=== PATIENT | male | born 1965 | race American Indian/Alaskan Native ===

== ENCOUNTER 2017-07-01 16:54 | Inpatient (IN) | payer BC, MEDICARE ==
[2017-07-01 19:37] LABS: BASO % 0.4 % (0.0-2.0); EOS % 0.5 % (0.0-4.0); HEMOGLOBIN 13.3 g/dL (12.0-18.0); LYMPH # 0.9 K/uL (1.0-4.3); LYMPH % 9.5 % (20.0-40.0); MEAN CELL VOLUME 83.7 fL (80.0-94.0); MEAN CORPUSCULAR HEMOGLOBIN 28.1 pg (27.0-31.0); MEAN CORPUSCULAR HGB CONC 33.6 g/dL (33.0-37.0); MONO # 1.4 K/uL (0.0-0.8); MONO % 13.8 % (0.0-10.0); NEUT # 7.4 K/uL (1.8-7.0); NEUT % 75.8 % (50.0-75.0); NRBC % 0.1 % (0.0-2.0); PLATELET COUNT 190 K/uL (130-400); RBC 4.74 Mil/uL (4.40-5.90); RED CELL DISTRIBUTION WIDTH 15.3 % (11.5-14.5); WHITE BLOOD COUNT 9.8 K/uL (4.8-10.8)
[2017-07-01] MEDS ORDERED: Sodium Chloride 0.9% 1,000 ML IV ONE (20:01)
--- NOTE | 2017-07-01 20:27 | C.PDOC ---
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 Patient reports a loss of appetite and has not had food all day. He also reports nausea but denies any associated vomiting or diarrhea. Patient also has chronic constipation with last bowel movement was yesterday which was fairly normal. Patient states he has been taking Metamucil. Of note, patient has kidney failure and is status post 2 kidney transplants; patient takes Cellcept and Prograf and is on steroids for immunosuppression. Chief Complaint (Nursing): Abdominal Pain History Per: Patient History/Exam Limitations: no limitations Onset/Duration Of Symptoms: Days Current Symptoms Are (Timing): Still Present Location Of Pain/Discomfort: Diffuse Quality Of Discomfort: "Pain" Associated Symptoms: Nausea. denies: Vomiting, Diarrhea Past Medical History Reviewed: Historical Data, Nursing Documentation, Vital Signs Vital Signs: Last Vital Signs Temp 99.0 F 07/02/17 05:59 Pulse 82 07/02/17 05:59 Resp 20 07/02/17 05:59 BP 134/76 07/02/17 05:59 Pulse Ox 96 07/02/17 05:59 - Medical History PMH: Diabetes, HTN, End Stage Renal Disease - [facility] Procedures PERFORMANCE OF URINARY FILTRATION, MULTIPLE (11/10/15) RESECTION OF LEFT METATARSAL, OPEN APPROACH (11/10/15) RESECTION OF LEFT TOE PHALANX, OPEN APPROACH (11/10/15) Family History: States: Unknown Family Hx - Social History Hx Tobacco Use: No Hx Alcohol Use: No Hx Substance Use: No - Immunization History Hx Tetanus Toxoid Vaccination: No Hx Influenza Vaccination: Yes Hx Pneumococcal Vaccination: Yes Review Of Systems Except As Marked, All Systems Reviewed And Found Negative. Constitutional: Negative for: Fever, Chills Respiratory: Positive for: Cough (non-productive) Gastrointestinal: Positive for: Nausea, Abdominal Pain, Constipation. Negative for: Vomiting, Diarrhea Physical Exam - Physical Exam Appears: Non-toxic, No Acute Distress Skin: Normal Color, Warm, Dry Head: Atraumatic, Normacephalic Eye(s): bilateral: Normal Inspection, PERRL, EOMI Neck: Normal ROM, Supple Chest: Symmetrical Cardiovascular: Rhythm Regular Respiratory: Normal Breath Sounds Gastrointestinal/Abdominal: Soft, Tenderness (right lower quadrant) Neurological/Psych: Oriented x3, Normal Speech ED Course And Treatment - Laboratory Results Result Diagrams: 07/02/17 05:59 07/02/17 05:59 O2 Sat by Pulse Oximetry: 95 (RA) Medical Decision Making Medical Decision Making: Plan: -- Labs -- CXR -- XR obstructive Series -- CT Abdomen w/o contrast -- Morphine 4mg IVP -- Zofran 4mg IVP -- IV Fluids Time: 2049 BUN Creatinine 38/2.1 Lipase 22 Time: 2245 Upon re-evaluation, patient feels comfortable and is going for CT currently. Patient confirms that pain is under control. Time: 2345 CT FINDINGS: Lower thorax: No acute findings. ABDOMEN: Liver: Unremarkable. Gallbladder and bile ducts: Unremarkable. No calcified stones. No ductal dilation. Pancreas: Unremarkable. No ductal dilation. Spleen: Unremarkable. No splenomegaly. Adrenals: Unremarkable. No mass. Kidneys and ureters: Atrophic bilateral [place] kidneys. Indeterminate [place] left kidney upper pole 4.2 cm structure posteriorly and 2 cm structure anteriorly on image 59 of series 3. Right lower quadrant transplant kidney demonstrates multiple nonobstructing calcifications some of which may be vascular in nature. Left lower quadrant transplant kidney is without calcification. No transplant kidney hydroureteronephrosis or perinephric fluid collection. Stomach and bowel: Unremarkable. No obstruction. No mucosal thickening. Appendix: Acute ruptured appendicitis with a 4.2 x 4 cm abscess at the tip of the appendix. The appendix is dilated up to 1.8 cm with periappendiceal stranding and fluid. PELVIS: Bladder: Unremarkable. No stones. Reproductive: Unremarkable as visualized. ABDOMEN and PELVIS: Intraperitoneal space: Unremarkable. No free air. No significant fluid collection. Bones/joints: No acute fracture. No dislocation. Soft tissues: Unremarkable. Vasculature: Unremarkable. No abdominal aortic aneurysm. Lymph nodes: Unremarkable. No enlarged lymph nodes. IMPRESSION: 1. Acute ruptured appendicitis with a 4.2 x 4 cm abscess at the tip of the appendix. 2. Indeterminate [place] left kidney upper pole 4.2 cm structure posteriorly and 2 cm structure anteriorly on image 59 of series 3. Renal protocol cross-sectional imaging is recommended to evaluate for renal neoplasm. 0000 Discussed case with surgical manager. Page placed to patient's primary doctor. Orders put in for ruptured appendicitis with [id number] abscess at tip of appendix. Patient is comfortable. [id number] Discussed case with covering physician Dr. Zaragoza who is aware of patient's condition and CT findings. case discussed with Dr. Dubose. Disposition Counseled Patient/Family Regarding: Diagnosis - Disposition Disposition: HOSPITALIZED Disposition Time: 06:59 Condition: FAIR - Clinical Impression Clinical Impression: Abdominal pain, Perforated appendicitis - Scribe Statement The provider has reviewed the documentation as recorded by the Mode Rahman Provider Attestation: All medical record entries made by the Mode were at my direction and personally dictated by me. I have reviewed the chart and agree that the record accurately reflects my personal performance of the history, physical exam, medical decision making, and the department course for this patient. I have also personally directed, reviewed, and agree with the discharge instructions and disposition.
[2017-07-01] MEDS ORDERED: Sodium Chloride 0.9% 1,000 ML ONE (20:44)
[2017-07-01] MEDS ORDERED: Iohexol 240 (50 ml) ONE (21:07)
[2017-07-01] MEDS ORDERED: Morphine 4 MG/ML VIAL ONE (21:07)
[2017-07-01 21:40] LABS: LYMPHOCYTE 9 % (20-40); MONOCYTE 12 % (0-10); NEUTROPHIL 79 % (50-75); PLATELET ESTIMATE NORMAL (NORMAL); TOTAL CELLS COUNTED 100
[2017-07-01] MEDS ORDERED: Ciprofloxacin 400mg/200ml D5W 400 MG/200 ML BAG IVPB STA (23:58)
[2017-07-01] MEDS ORDERED: metroNIDAZOLE IV 500 mg/100 ml 500 MG/100 ML BAG IVPB STA (23:58)
[2017-07-02] MEDS ORDERED: Ciprofloxacin 400mg/200ml D5W 400 MG/200 ML BAG IVPB ONE (00:06)
[2017-07-02] MEDS ORDERED: metroNIDAZOLE IV 500 mg/100 ml 500 MG/100 ML BAG ONE (00:06)
--- NOTE | 2017-07-02 00:13 | CP.PCM.CON ---
History of Present Illness - History of Present Illness History of Present Illness: General Surgery Consult Note for Dr. Quevedo Reason for consult: abdominal pain, ruptured appendix 51 with PMH of HTN, DM, HLD, ESRD s/p kidney transplant x 2 presentss to [facility] for abdominal pain. Patient states that he has had the pain for about 2 days. Patient was at home on Saturday and states sudden onset of sharp, excruciating pain occurred. After a few hours, the pain subsided. Patient had some associated nausea and anorexia at that time. The pain subsequently resolved and the patient developed an appeitie. Yesterday, the pain returned but more intense and did not resolve. Patient then was prompted to come to the ED. He rates pain as moderate to severe. He describes pain as constant and throbbing located in RLQ quadrant with radiation to R flank. Palpation and certain movements exacerbates his pain while nothing specifically alleviates it. Patient currently stating he is hungry and requesting food. 12 point ROS negative unless otherwise stated above. PMD: Dr. Ashvin Clifton Nephro: Dr. Lorenzo PMH: HTN, DM, HLD, ESRD s/p kidney transplant x 2 Meds: As per EMR PSH: s/p kidney transplant x 2, LLE lateral digits amputation FH: non-contributory Social: Denies tobacco/EtOH/illicit drug use Review of Systems - Review of Systems All systems: reviewed and no additional remarkable complaints except (as per HPI ) Past Patient History - Past Medical History & Family History Past Medical History?: Yes - Past Social History Smoking Status: Former Smoker - CARDIAC Hx Hypertension: Yes - RENAL Hx Dialysis: Yes Date of Last Dialysis Treatment: 11/09/15 Other/Comment: DIALYSIS MWF - ENDOCRINE/METABOLIC Hx Diabetes Mellitus Type 1: Yes - INTEGUMENTARY Other/Comment: DIABETIC FOOT ULCER, LEFT - MUSCULOSKELETAL/RHEUMATOLOGICAL Hx Falls: No - PSYCHIATRIC Hx Substance Use: No - SURGICAL HISTORY Hx Amputation: Yes (LEFT FOOT, DIGITS 4,5) Hx Kidney Transplant: Yes (Right 13 yrs. ago, 01/19/17 Left) - ANESTHESIA Hx Anesthesia: Yes Hx Anesthesia Reactions: No Meds Allergies/Adverse Reactions: Allergies Allergy/AdvReac Type Severity Reaction Status Date / Time No Known Allergies Allergy Verified 11/11/15 00:29 - Medications Medications: Current Medications Metronidazole (Flagyl) 500 mg in 100 mls @ 100 mls/hr IVPB STAT STA Stop: 07/02/17 00:57 Ciprofloxacin (Cipro 400mg/200ml Dsw) 400 mg in 200 mls @ 133 mls/hr IVPB STAT STA Stop: 07/02/17 01:28 Physical Exam - Constitutional Appears: No Acute Distress - Head Exam Head Exam: ATRAUMATIC, NORMOCEPHALIC - Eye Exam Eye Exam: Conjunctival injection, EOMI Pupil Exam: PERRL - ENT Exam ENT Exam: Mucous Membranes Dry - Respiratory Exam Respiratory Exam: NORMAL BREATHING PATTERN - Cardiovascular Exam Cardiovascular Exam: REGULAR RHYTHM - GI/Abdominal Exam GI & Abdominal Exam: Guarding (deep palpation RLQ), Soft, Tenderness (RLQ). absent: Distended, Firm, Hernia, Mass, Rebound, Rigid - Extremities Exam Extremities exam: Positive for: normal capillary refill, pedal pulses present - Back Exam Back exam: absent: CVA tenderness (L), CVA tenderness (R) - Neurological Exam Neurological exam: Alert, CN II-XII Intact, Oriented x3 - Psychiatric Exam Psychiatric exam: Normal Affect, Normal Mood - Skin Skin Exam: Dry, Intact, Normal Color, Warm Results - Vital Signs Recent Vital Signs: Last Vital Signs Temp 100 F H 07/01/17 22:52 Pulse 89 07/01/17 22:52 Resp 18 07/01/17 22:52 BP 155/81 H 07/01/17 22:52 Pulse Ox 95 07/01/17 23:58 - Labs Result Diagrams: 07/02/17 05:59 07/02/17 05:59 Labs: Laboratory Results - last 24 hr 07/01/17 07/01/17 07/01/17 19:34 19:34 20:34 WBC 9.8 D RBC 4.74 Hgb 13.3 Hct 39.7 MCV 83.7 D MCH 28.1 MCHC 33.6 RDW 15.3 H Plt Count 190 MPV 10.0 Neut % (Auto) 75.8 H Lymph % (Auto) 9.5 L [place] % (Auto) 13.8 H Eos % (Auto) 0.5 Baso % (Auto) 0.4 Neut # 7.4 H Lymph # 0.9 L [place] # 1.4 H Eos # 0.0 Baso # 0.0 Neutrophils % (Manual) 79 H Lymphocytes % (Manual) 9 L Monocytes % (Manual) 12 H Platelet Estimate Normal Sodium 133 Potassium 4.3 Chloride 99 Carbon Dioxide 25 Anion Gap 14 BUN 38 H Creatinine 2.1 H Est GFR ( Amer) 41 Est GFR (Non-Af Amer) 34 Random Glucose 129 H Calcium 9.0 Total Bilirubin 0.9 AST 23 ALT 24 Alkaline Phosphatase 83 Troponin I 0.0200 Total Protein 7.9 Albumin 4.0 Globulin 3.9 Albumin/Globulin Ratio 1.0 Lipase 22 L Assessment & Plan - Assessment and Plan (Free Text) Plan: 51 M presents for abdominal pain with CT findings of ruptured appendicitis and 4.2 x 4cm abscess at tip of appendix -NPO -IV hydration -IV antibiotics -IR consult for possible drainage -Possible OR if clinical presentation worsens -Discussed with Dr. Sae Osorio PGY1
--- NOTE | 2017-07-02 02:49 | CP.PCM.HP ---
History of Present Illness - History of Present Illness History of Present Illness: Medicine Note for Dr. Winter Service CC: Abdominal pain HPI: 51M with PMHx of HTN, DM, HLD, ESRD s/p renal transplant x 2, chronic right arm lymphedema presents to the ED with abdominal pain x 3 days. Patient reports he started to have a dull, intermittent RLQ pain that did not radiate, that started 2 days ago. Patient admits to feeling feverish, chills, loss of appetite, nausea, abdominal pain, normal bowel movements. He tried taking Tylenol with codeine (which was prescribed to him by PMD, for previous illness) , with no relief. Patient came to the ED due to the pain becoming constant and now with radiation to his right flank. Denied fever, chills, headache, chest pain, SOB, n/v/d/c, or urinary symptoms. PMHx: HTN, DM, HLD, ESRD s/p renal transplant x 2, chronic right arm lymphedema PSHx: renal transplant x 2, LLE lateral digits amputation Meds: As per AUG, reviewed and confirmed All: NKDA SHx: 1 PPD for 10 years between 18-28 years of age, denied ETOH abuse, or illicit drug use FHx: HTN, DM in both parents - they are PMD: Dr. Ashvin Clifton Nephro: Dr. Lorenzo Present on Admission - Present on Admission Any Indicators Present on Admission: No Past Patient History - Past Medical History & Family History Past Medical History?: Yes - Past Social History Smoking Status: Former Smoker - CARDIAC Hx Hypertension: Yes - RENAL Hx Dialysis: Yes Date of Last Dialysis Treatment: 11/09/15 Other/Comment: DIALYSIS MWF - ENDOCRINE/METABOLIC Hx Diabetes Mellitus Type 1: Yes - INTEGUMENTARY Other/Comment: DIABETIC FOOT ULCER, LEFT - MUSCULOSKELETAL/RHEUMATOLOGICAL Hx Falls: No - PSYCHIATRIC Hx Substance Use: No - SURGICAL HISTORY Hx Amputation: Yes (LEFT FOOT, DIGITS 4,5) Hx Kidney Transplant: Yes (Right 13 yrs. ago, 01/19/17 Left) - ANESTHESIA Hx Anesthesia: Yes Hx Anesthesia Reactions: No Meds Allergies/Adverse Reactions: Allergies Allergy/AdvReac Type Severity Reaction Status Date / Time No Known Allergies Allergy Verified 11/11/15 00:29 Physical Exam - Constitutional Appears: No Acute Distress - Head Exam Head Exam: NORMAL INSPECTION, NORMOCEPHALIC - Eye Exam Eye Exam: EOMI, Normal appearance, PERRL Pupil Exam: NORMAL ACCOMODATION - ENT Exam ENT Exam: Mucous Membranes Moist - Respiratory Exam Respiratory Exam: Clear to Auscultation Bilateral, NORMAL BREATHING PATTERN. absent: Decreased Breath Sounds, Wheezes - Cardiovascular Exam Cardiovascular Exam: REGULAR RHYTHM, RRR, +S1, +S2 - GI/Abdominal Exam GI & Abdominal Exam: Normal Bowel Sounds, Soft, Tenderness (RLQ). absent: Distended - Extremities Exam Extremities exam: Positive for: normal inspection, pedal pulses present. Negative for: pedal edema, tenderness - Neurological Exam Neurological exam: Alert, CN II-XII Intact, Oriented x3 - Psychiatric Exam Psychiatric exam: Normal Affect, Normal Mood - Skin Skin Exam: Dry, Intact, Normal Color, Warm Results - Vital Signs Recent Vital Signs: Last Vital Signs Temp 100 F H 07/01/17 22:52 Pulse 89 07/01/17 22:52 Resp 18 07/01/17 22:52 BP 155/81 H 07/01/17 22:52 Pulse Ox 95 07/02/17 00:36 - Labs Result Diagrams: 07/02/17 05:59 07/02/17 05:59 Labs: Laboratory Results - last 24 hr 07/01/17 07/01/17 07/01/17 19:34 19:34 20:34 WBC 9.8 D RBC 4.74 Hgb 13.3 Hct 39.7 MCV 83.7 D MCH 28.1 MCHC 33.6 RDW 15.3 H Plt Count 190 MPV 10.0 Neut % (Auto) 75.8 H Lymph % (Auto) 9.5 L [place] % (Auto) 13.8 H Eos % (Auto) 0.5 Baso % (Auto) 0.4 Neut # 7.4 H Lymph # 0.9 L [place] # 1.4 H Eos # 0.0 Baso # 0.0 Neutrophils % (Manual) 79 H Lymphocytes % (Manual) 9 L Monocytes % (Manual) 12 H Platelet Estimate Normal Sodium 133 Potassium 4.3 Chloride 99 Carbon Dioxide 25 Anion Gap 14 BUN 38 H Creatinine 2.1 H Est GFR ( Amer) 41 Est GFR (Non-Af Amer) 34 Random Glucose 129 H Calcium 9.0 Total Bilirubin 0.9 AST 23 ALT 24 Alkaline Phosphatase 83 Troponin I 0.0200 Total Protein 7.9 Albumin 4.0 Globulin 3.9 Albumin/Globulin Ratio 1.0 Lipase 22 L Assessment & Plan - Assessment and Plan (Free Text) Assessment: 51M with PMHx of HTN, DM, HLD, ESRD s/p renal transplant x 2, chronic right arm lymphedema presents to the ED with abdominal pain x 3 days, found to have a ruptured appendix with possible Plan: Ruptured Appendicitis with Abscess General Surgery consulted - Dr. Quevedo - help appreciated IR was consulted for possible drainage- as per IR - the CT scan was reviewed. There is phlegmatous ( inflammatory) changes in the RLQ. There is no drainable fluid. Once a fluid collection develops, an percutaneous drainage catheter will be placed. Recommend repeating CT in two days. Imaging: CT Scan Abdomen and Pelvis: 1. Findings are consistent with acute ruptured appendicitis with a 4.2 cm collection/phlegmon at the tip. 2. 2.0 cm indeterminate lesion in the upper pole of the left kidney anteriorly could represent a complicated or hemorrhagic cyst. Neoplasm cannot be excluded. Please correlate with renal ultrasound. Meds: NS @100cc/hr Zosyn Q6H Morphine, Zofran PRN Renal Cyst CT Scan Abdomen and Pelvis: 2.0 cm indeterminate lesion in the upper pole of the left kidney anteriorly could represent a complicated or hemorrhagic cyst. Neoplasm cannot be excluded. Please correlate with renal ultrasound. F/U Renal US Hx of Renal Transplant x 2 Restarted immunosuppressants Hx HTN Resumed home medications Hx DM Accuchecks ISS - medium, restarted Gabapentin f/u HGA1C Hx HLD F/U lipid panel Prophylactic Measures GI PPX: Protonix 40mg IVP daily DVT PPX: SCDs, VTE C/I due to possible OR procedure DW Dr. Dubose, Davida Norris DO, PGY-1
[2017-07-02] MEDS ORDERED: Morphine 4 MG/ML VIAL ONE (04:49)
[2017-07-02] MEDS: Sodium Chloride 0.9% 1,000 ML IV SCH ×3 (05:32→20:55)
[2017-07-02] MEDS: Piperacill/Tazo 2.25gm in Dex 2.25 GM/50 ML BAG IVPB SCH ×4 (05:33→20:44)
[2017-07-02] MEDS ORDERED: Sodium Chloride 0.9% 1,000 ML ONE (05:44)
[2017-07-02 06:01] LABS: BASO # 0.1 K/uL (0.0-0.2); BASO % 0.6 % (0.0-2.0); EOS % 0.4 % (0.0-4.0); HEMOGLOBIN 11.8 g/dL (12.0-18.0); LYMPH # 0.6 K/uL (1.0-4.3); LYMPH % 6.3 % (20.0-40.0); MEAN CELL VOLUME 83.5 fL (80.0-94.0); MEAN CORPUSCULAR HGB CONC 33.5 g/dL (33.0-37.0); MONO # 1.4 K/uL (0.0-0.8); MONO % 13.9 % (0.0-10.0); NEUT % 78.8 % (50.0-75.0); PLATELET COUNT 146 K/uL (130-400); RBC 4.23 Mil/uL (4.40-5.90); RED CELL DISTRIBUTION WIDTH 15.3 % (11.5-14.5); WHITE BLOOD COUNT 10.1 K/uL (4.8-10.8)
[2017-07-02 06:34] LABS: ALBUMIN 3.4 g/dL (3.5-5.0); CALCIUM 8.4 mg/dl (8.6-10.4)
[2017-07-02] MEDS: (Novolin R) Insulin Human Regular 100 units/ml vial SC SCH ×5 (08:13→23:30)
[2017-07-02 08:42] LABS: BANDS 5 % (0-2); EOSINOPHIL 1 % (0-4); LYMPHOCYTE 5 % (20-40); MONOCYTE 11 % (0-10); NEUTROPHIL 78 % (50-75); PLATELET ESTIMATE NORMAL (NORMAL); TOTAL CELLS COUNTED 100
[2017-07-02 08:43] LABS: ANISOCYTOSIS SLIGHT; HYPOCHROMIC SLIGHT; POLYCHROMIC SLIGHT; TOXIC GRANULATION PRESENT
--- NOTE | 2017-07-02 09:23 | CT ---
PROCEDURE: CT Abdomen and Pelvis with contrast HISTORY: Abdominal pain COMPARISON: 10/16/2014. TECHNIQUE: CT scan of the abdomen and pelvis was performed without intravenous administration of contrast. Oral contrast was administered. Coronal and sagittal reformatted images were obtained. Radiation dose: Total exam DLP = 971.48 mGy-cm. This CT exam was performed using one or more of the following dose reduction techniques: Automated exposure control, adjustment of the mA and/or kV according to patient size, and/or use of iterative reconstruction technique. FINDINGS: LOWER THORAX: The right lung base is clear. There is subsegmental atelectasis in the left lower lobe. LIVER: Normal in size. No gross lesion or ductal dilatation. GALLBLADDER AND BILE DUCTS: There is layering sludge in the gallbladder. PANCREAS: Mild diffuse atrophy. No gross lesion or ductal dilatation. SPLEEN: Normal in size. ADRENALS: The right adrenal gland is normal. Mild thickening of the left adrenal gland without discrete nodule. KIDNEYS AND URETERS: Small atrophic [place] kidneys with a large 4.3 cm simple cyst in the left kidney. There is a 2.0 cm indeterminate hyperdense lesion in the left upper pole anteriorly. There is a left lower quadrant renal transplant. No hydronephrosis or nephrolithiasis. VASCULATURE: Unremarkable. No aortic aneurysm. BOWEL: Unremarkable. No obstruction. No gross mural thickening. APPENDIX: There is a right lower quadrant renal transplant. The appendix is dilated, fluid-filled with extensive inflammatory changes in the surrounding right lower quadrant fat. The tip of the appendix is not well visualized. There is a 4.2 x 4.3 cm collection/phlegmon in the right lower quadrant in the region of the tip of the appendix. PERITONEUM: No free fluid. No free air. LYMPH NODES: No enlarged lymph nodes. BLADDER: Well distended. REPRODUCTIVE: The prostate gland is normal in size. BONES: No acute fracture. Within normal limits for the patient's age. OTHER FINDINGS: Mild gastroesophageal reflux. IMPRESSION: 1. Findings are consistent with acute ruptured appendicitis with a 4.2 cm collection/phlegmon at the tip. 2. 2.0 cm indeterminate lesion in the upper pole of the left kidney anteriorly could represent a complicated or hemorrhagic cyst. Neoplasm cannot be excluded. Please correlate with renal ultrasound. A preliminary report was provided by [facility].
[2017-07-02 09:38] LABS: INR 1.1; PROTHROMBIN TIME 12.9 SECONDS (9.7-12.2)
--- NOTE | 2017-07-02 09:38 | CP.PCM.PN ---
<Jad Sheth - Last Filed: 07/02/17 18:49> Subjective - Date & Time of Evaluation Date of Evaluation: 07/02/17 Time of Evaluation: 07:00 - Subjective Subjective: Medicine progress note for Dr. Dubose Patient seen and examined at bedside. Patient reports no acute abdominal pain at time of encounter, stating that the medications he was given are effective. Immunosuppressant medications were reconciled at bedside. Patient was instructed to bring his Mycophenolate from home as the hospital does not carry his dosage. Patient was later seen on rounds in presence of family who brought his home medications. Objective - Vital Signs/Intake and Output Vital Signs (last 24 hours): Temp Pulse Resp BP Pulse Ox 99.0 F 82 20 134/76 95 07/02/17 05:59 07/02/17 05:59 07/02/17 05:59 07/02/17 05:59 07/02/17 06:59 - Medications Medications: Current Medications Gabapentin (Neurontin) 100 mg PO HS [facility] Home Med (Mycophenolate Sodium [Mycophenolic Acid]) 180 mg PO BID [facility] Hydralazine HCl (Apresoline) 25 mg PO QID [facility] Piperacillin Sod/Tazobactam Sod (Zosyn 2.25 Gm Iv Premix) 2.25 gm in 50 mls @ 100 mls/hr IVPB Q6H [facility] Last Admin: 07/02/17 05:33 Dose: Not Given Sodium Chloride (Sodium Chloride 0.9%) 1,000 mls @ 100 mls/hr IV .Q10H [facility] Last Admin: 07/02/17 05:32 Dose: 100 mls/hr Insulin Human Regular (Novolin R) 0 unit SC ACHS [facility] PRN Reason: Protocol Last Admin: 07/02/17 08:13 Dose: Not Given Morphine Sulfate (Morphine) 2 mg IVP Q4 PRN PRN Reason: Pain, severe (8-10) Ondansetron HCl (Zofran Inj) 4 mg IVP Q4H PRN PRN Reason: Nausea/Vomiting Pantoprazole Sodium (Protonix Inj) 40 mg IVP DAILY [facility] Prednisone (Prednisone Tab) 5 mg PO DAILY [facility] Tacrolimus (Prograf Cap) 4 mg PO BID [facility] - Labs Labs: 07/02/17 05:59 07/02/17 05:59 - Additional Findings Additional findings: - Constitutional Appears: No Acute Distress - Head Exam Head Exam: NORMAL INSPECTION, NORMOCEPHALIC - Eye Exam Eye Exam: EOMI, Normal appearance, PERRL Pupil Exam: NORMAL ACCOMODATION - ENT Exam ENT Exam: Mucous Membranes Moist - Respiratory Exam Respiratory Exam: Clear to Auscultation Bilateral, NORMAL BREATHING PATTERN. absent: Decreased Breath Sounds, Wheezes - Cardiovascular Exam Cardiovascular Exam: REGULAR RHYTHM, RRR, +S1, +S2 - GI/Abdominal Exam GI & Abdominal Exam: Normal Bowel Sounds, Soft, Tenderness (Right lower quadrant ). absent: Guarding - Extremities Exam Extremities exam: Positive for: normal inspection, pedal pulses present. Negative for: pedal edema, tenderness Additional Comments: Swelling of left upper extremity - Neurological Exam Neurological exam: Alert, CN II-XII Intact, Oriented x3 - Psychiatric Exam Psychiatric exam: Normal Affect, Normal Mood - Skin Skin Exam: Dry, Intact, Normal Color, Warm Additional Comments: Surgical scar on the abdomen from prior transplant surgeries Assessment and Plan - Assessment and Plan (Free Text) Plan: Ruptured Appendicitis with Abscess General Surgery consulted - Dr. Quevedo - help appreciated IR was consulted for possible drainage, help appreciated * Per IR on 07/02/17, there is phlegmatous ( inflammatory) changes in the RLQ. There is no drainable fluid. Once a fluid collection develops, an percutaneous drainage catheter will be placed. Recommend repeating CT in two days. Imaging: CT Scan Abdomen and Pelvis: 1. Findings are consistent with acute ruptured appendicitis with a 4.2 cm collection/phlegmon at the tip. 2. 2.0 cm indeterminate lesion in the upper pole of the left kidney anteriorly could represent a complicated or hemorrhagic cyst. Neoplasm cannot be excluded. Please correlate with renal ultrasound. Meds: NS @100cc/hr Renally dosed Zosyn 2.25 gm Q6H Morphine, Zofran PRN History of Renal Transplant x 2 Resume home Prograf 4 mg PO BID Resume home Cellcept (brought in by patient) 180 mg PO BID Resume home Prednisone 5 mg PO daily Nephrology consult, Dr. Lorenzo, help appreciated Renal Cyst CT Scan Abdomen and Pelvis: 2.0 cm indeterminate lesion in the upper pole of the left kidney anteriorly could represent a complicated or hemorrhagic cyst. Neoplasm cannot be excluded. Please correlate with renal ultrasound. Renal US shows 4.1 cm solid mass in the upper pole of the left [place] kidney Outpatient follow up for mass once acute issues have resolved was recommended by nephrology History of Hypertension Resumed home medication Hydralazine 25 mg PO QID History of Diabetes Accuchecks ISS - medium home medication Lantus 35 units SC HS home medication Gabapentin 100 mg PO HS f/u HGA1C Hx HLD F/U lipid panel Prophylactic Measures GI PPX: Protonix 40mg IVP daily DVT PPX: Heparin 5000 units SC Q12H, SCDs. Renal Diet Case DW Dr. Gracy Sheth PGY-1 <Arias Dubose Jr. - Last Filed: 07/04/17 19:29> Objective - Vital Signs/Intake and Output Vital Signs (last 24 hours): Temp Pulse Resp BP Pulse Ox 98.3 F 70 20 124/70 98 07/04/17 15:00 07/04/17 18:53 07/04/17 15:00 07/04/17 18:53 07/04/17 15:00 Intake and Output: 07/04/17 07/05/17 18:59 06:59 Intake Total 2500 Balance 2500 - Medications Medications: Current Medications Calcitriol (Rocaltrol) 0.25 mcg PO DAILY [facility] Last Admin: 07/04/17 09:39 Dose: 0.25 mcg Dextrose (Dextrose 50% Inj) 0 ml IV STAT PRN; Protocol PRN Reason: Hypoglycemia Protocol Dextrose (Glutose 15) 0 gm PO ONCE PRN; Protocol PRN Reason: Hypoglycemia Protocol Docusate Sodium (Colace) 100 mg PO DAILY [facility] Last Admin: 07/04/17 18:54 Dose: 100 mg Gabapentin (Neurontin) 100 mg PO HS [facility] Last Admin: 07/03/17 21:43 Dose: 100 mg Glucagon (Glucagen Diagnostic Kit) 0 mg IM STAT PRN; Protocol PRN Reason: Hypoglycemia Protocol Heparin Sodium (Porcine) (Heparin) 5,000 units SC Q12 [facility] Last Admin: 07/04/17 09:38 Dose: 5,000 units Home Med (Patient's Own Medication) 1 tab PO BID [facility] Last Admin: 07/04/17 18:55 Dose: 1 tab Hydralazine HCl (Apresoline) 25 mg PO QID [facility] Last Admin: 07/04/17 18:54 Dose: 25 mg Piperacillin Sod/Tazobactam Sod (Zosyn 2.25 Gm Iv Premix) 2.25 gm in 50 mls @ 100 mls/hr IVPB Q6H [facility] Last Admin: 07/04/17 18:48 Dose: 100 mls/hr Sodium Chloride (Sodium Chloride 0.9%) 1,000 mls @ 100 mls/hr IV .Q10H [facility] Last Admin: 07/04/17 18:48 Dose: 100 mls/hr Dextrose (Dextrose 5% In Water 1000 Ml) 1,000 mls @ 0 mls/hr IV .Q0M PRN; Protocol; Per Protocol PRN Reason: Hypoglycemia Protocol Insulin Glargine (Lantus) 35 unit SC HS [facility] Last Admin: 07/03/17 21:42 Dose: 35 units Insulin Human Regular (Novolin R) 0 unit SC ACHS [facility] PRN Reason: Protocol Last Admin: 07/04/17 17:49 Dose: 3 unit Morphine Sulfate (Morphine) 2 mg IVP Q4 PRN PRN Reason: Pain, severe (8-10) Last Admin: 07/04/17 06:08 Dose: 2 mg Multivitamins (Hexavitamin) 1 tab PO DAILY [facility] Last Admin: 07/04/17 09:38 Dose: 1 tab [id number] Ethyl Esters (Lovaza) 1 gm PO BID [facility] Last Admin: 07/04/17 18:56 Dose: 1 gm Ondansetron HCl (Zofran Inj) 4 mg IVP Q4H PRN PRN Reason: Nausea/Vomiting Pantoprazole Sodium (Protonix Inj) 40 mg IVP DAILY [facility] Last Admin: 07/04/17 09:38 Dose: 40 mg Prednisone (Prednisone Tab) 5 mg PO DAILY [facility] Last Admin: 07/04/17 09:38 Dose: 5 mg Tacrolimus (Prograf Cap) 4 mg PO BID [facility] Last Admin: 07/04/17 18:56 Dose: 4 mg - Labs Labs: 07/04/17 06:20 07/04/17 06:20 PT 12.3 SECONDS (9.7-12.2) H 07/03/17 07:37 INR 1.1 07/03/17 07:37 APTT 29 SECONDS (21-34) 07/02/17 09:28 Attending/Attestation - Attestation I have personally seen and examined this patient.: Yes I have fully participated in the care of the patient.: Yes I have reviewed all pertinent clinical information, including history, physical exam and plan: Yes Notes (Text): 07/04/17 19:29 Agree with resident note and plan of care
--- NOTE | 2017-07-02 09:46 | PCM.IRP ---
History of Present Illness - History of Present Illness History of Present Illness: IR requested to evaluate Mr. Rosa for periappendiceal abscess drainage. The CT scan was reviewed. There is phlegmatous ( inflammatory) changes in the RLQ. There is no drainable fluid. Once a fluid collection develops, an percutaneous drainage catheter will be placed. Recommend repeating CT in two days. Will continue to follow. Objective - Vital Signs/Intake and Output Vital Signs (last 24 hours): Vital Signs - 24 hr 07/01/17 07/01/17 07/01/17 17:35 22:52 23:30 Temperature 99.2 F 100 F H 98.8 F Pulse Rate 87 89 82 Respiratory 18 18 20 Rate Blood Pressure 123/74 155/81 H 130/72 O2 Sat by Pulse 95 95 97 Oximetry 07/02/17 07/02/17 07/02/17 03:40 05:59 06:59 Temperature 98.9 F 99.0 F Pulse Rate 82 82 Respiratory 20 20 Rate Blood Pressure 146/82 134/76 O2 Sat by Pulse 96 96 95 Oximetry Intake and Output (last 12 hours): Intake & Output 07/01/17 07/02/17 07/02/17 18:59 06:59 18:59 Weight 235 lb - Medications Medications: Current Medications Gabapentin (Neurontin) 100 mg PO HS [facility] Home Med (Mycophenolate Sodium [Mycophenolic Acid]) 180 mg PO BID [facility] Hydralazine HCl (Apresoline) 25 mg PO QID [facility] Piperacillin Sod/Tazobactam Sod (Zosyn 2.25 Gm Iv Premix) 2.25 gm in 50 mls @ 100 mls/hr IVPB Q6H [facility] Last Admin: 07/02/17 05:33 Dose: Not Given Sodium Chloride (Sodium Chloride 0.9%) 1,000 mls @ 100 mls/hr IV .Q10H [facility] Last Admin: 07/02/17 05:32 Dose: 100 mls/hr Insulin Human Regular (Novolin R) 0 unit SC ACHS [facility] PRN Reason: Protocol Last Admin: 07/02/17 08:13 Dose: Not Given Morphine Sulfate (Morphine) 2 mg IVP Q4 PRN PRN Reason: Pain, severe (8-10) Ondansetron HCl (Zofran Inj) 4 mg IVP Q4H PRN PRN Reason: Nausea/Vomiting Pantoprazole Sodium (Protonix Inj) 40 mg IVP DAILY [facility] Prednisone (Prednisone Tab) 5 mg PO DAILY [facility] Tacrolimus (Prograf Cap) 4 mg PO BID [facility] - Labs Labs (last 24 hours): Laboratory Results - last 24 hr 07/01/17 07/01/17 07/01/17 19:34 19:34 20:34 WBC 9.8 D RBC 4.74 Hgb 13.3 Hct 39.7 MCV 83.7 D MCH 28.1 MCHC 33.6 RDW 15.3 H Plt Count 190 MPV 10.0 Neut % (Auto) 75.8 H Lymph % (Auto) 9.5 L [place] % (Auto) 13.8 H Eos % (Auto) 0.5 Baso % (Auto) 0.4 Neut # 7.4 H Lymph # 0.9 L [place] # 1.4 H Eos # 0.0 Baso # 0.0 Neutrophils % (Manual) 79 H Band Neutrophils % Lymphocytes % (Manual) 9 L Monocytes % (Manual) 12 H Eosinophils % (Manual) Toxic Granulation Platelet Estimate Normal Polychromasia Hypochromasia (manual) Anisocytosis (manual) Sodium 133 Potassium 4.3 Chloride 99 Carbon Dioxide 25 Anion Gap 14 BUN 38 H Creatinine 2.1 H Est GFR ( Amer) 41 Est GFR (Non-Af Amer) 34 POC Glucose (mg/dL) Random Glucose 129 H Calcium 9.0 Total Bilirubin 0.9 AST 23 ALT 24 Alkaline Phosphatase 83 Troponin I 0.0200 Total Protein 7.9 Albumin 4.0 Globulin 3.9 Albumin/Globulin Ratio 1.0 Lipase 22 L 07/02/17 07/02/17 07/02/17 05:59 05:59 08:12 WBC 10.1 RBC 4.23 L Hgb 11.8 L Hct 35.3 MCV 83.5 MCH 28.0 MCHC 33.5 RDW 15.3 H Plt Count 146 MPV 9.0 Neut % (Auto) 78.8 H Lymph % (Auto) 6.3 L [place] % (Auto) 13.9 H Eos % (Auto) 0.4 Baso % (Auto) 0.6 Neut # 8.0 H Lymph # 0.6 L [place] # 1.4 H Eos # 0.0 Baso # 0.1 Neutrophils % (Manual) 78 H Band Neutrophils % 5 H Lymphocytes % (Manual) 5 L Monocytes % (Manual) 11 H Eosinophils % (Manual) 1 Toxic Granulation Present Platelet Estimate Normal Polychromasia Slight Hypochromasia (manual) Slight Anisocytosis (manual) Slight Sodium 132 Potassium 4.2 Chloride 102 Carbon Dioxide 21 L Anion Gap 14 BUN 32 H Creatinine 2.0 H Est GFR ( Amer) 43 Est GFR (Non-Af Amer) 36 POC Glucose (mg/dL) 173 H Random Glucose 164 H Calcium 8.4 L Total Bilirubin 0.9 AST 16 L D ALT 28 Alkaline Phosphatase 73 Troponin I Total Protein 6.8 Albumin 3.4 L Globulin 3.5 Albumin/Globulin Ratio 1.0 Lipase
[2017-07-02] MEDS ORDERED: MYCOPHENOLATE SODIUM 180 MG PO SCH (10:00)
--- NOTE | 2017-07-02 10:59 | RAD ---
PROCEDURE: Radiographs of the chest and abdomen (obstructive series) HISTORY: Abdominal pain COMPARISON: No prior. TECHNIQUE: AP radiograph of the chest, with upright and supine radiographs of the abdomen. FINDINGS: CHEST: Lungs: The lungs are well inflated and clear. Cardiovascular: Normal size heart. No pulmonary vascular congestion. Pleura: No pleural fluid. No pneumothorax. Other findings: None. ABDOMEN AND PELVIS: Bowel: There is large amount of stool in the colon. No evidence of mechanical obstruction. Free air: None. Bones: Unremarkable. Other findings: None. IMPRESSION: Constipation. No evidence of bowel obstruction. Clear lungs.
--- NOTE | 2017-07-02 15:37 | US ---
PROCEDURE: Ultrasound of the Kidneys HISTORY: 2.0 cm indeterminate lesion left kidney upper pole COMPARISON: None available. TECHNIQUE: Grayscale imaging was performed. FINDINGS: RIGHT KIDNEY: Right lower quadrant transplant measures 10.2 cm. Normal in size, contour and echogenicity. No stone, solid mass lesion or hydronephrosis visualized. LEFT KIDNEY: Left lower quadrant transplant measures 13.5 cm. Normal in size, contour and echogenicity. No stone, solid mass lesion or hydronephrosis visualized. OTHER FINDINGS: The right [place] kidney is not well visualized. The left [place] kidney measures 7.7 cm. There is a 4.1 x 3.5 x 3.4 cm solid mass in the upper pole. There is mild peripheral increased vascularity. Incidental note is made of gallstones. IMPRESSION: 1. Normal appearance of the right lower quadrant and left lower quadrant renal transplants. 2. 4.1 cm solid mass in the upper pole of the left [place] kidney. Dedicated CT scan/MRI of the abdomen without and with intravenous contrast with renal protocol is recommended for further characterization.
--- NOTE | 2017-07-02 16:31 | CP.PCM.CON ---
History of Present Illness - History of Present Illness History of Present Illness: CC: Abdominal pain HPI: 51M with PMHx of HTN, DM, HLD, ESRD s/p renal transplant x 2, chronic right arm lymphedema presents to the ED with abdominal pain x 3 days. Patient reports he started to have a dull, intermittent RLQ pain that did not radiate, that started 2 days ago. Patient admits to feeling feverish, chills, loss of appetite, nausea, abdominal pain, normal bowel movements. He tried taking Tylenol with codeine (which was prescribed to him by PMD, for previous illness) , with no relief. Patient came to the ED due to the pain becoming constant and now with radiation to his right flank. Denied fever, chills, headache, chest pain, SOB, n/v/d/c, or urinary symptoms. CT scan revealed per-appendeceal fluid collection, pt was evaluated by IR and repeat ct scan recommended. Also seen was a left cra[place] kidney mass 4 cm. Baseline creatinine not known to patient. PMHx: HTN, DM, HLD, ESRD s/p renal transplant x 2, chronic right arm lymphedema PSHx: renal transplant x 2, LLE lateral digits amputation Meds: As per MAR, reviewed and confirmed All: NKDA SHx: 1 PPD for 10 years between 17-28 years of age, denied ETOH abuse, or illicit drug use FHx: HTN, DM in both parents - they are Review of Systems - Review of Systems All systems: reviewed and no additional remarkable complaints except (as per HPI ) Past Patient History - Past Medical History & Family History Past Medical History?: Yes - Past Social History Smoking Status: Former Smoker - CARDIAC Hx Hypertension: Yes - RENAL Hx Dialysis: Yes Date of Last Dialysis Treatment: 11/09/15 Other/Comment: DIALYSIS MWF - ENDOCRINE/METABOLIC Hx Diabetes Mellitus Type 1: Yes - INTEGUMENTARY Other/Comment: DIABETIC FOOT ULCER, LEFT - MUSCULOSKELETAL/RHEUMATOLOGICAL Hx Falls: Yes - PSYCHIATRIC Hx Substance Use: No - SURGICAL HISTORY Hx Amputation: Yes (LEFT FOOT, DIGITS 4,5) Hx Kidney Transplant: Yes (Right 13 yrs. ago, 01/19/17 Left) - ANESTHESIA Hx Anesthesia: Yes Hx Anesthesia Reactions: No Meds Allergies/Adverse Reactions: Allergies Allergy/AdvReac Type Severity Reaction Status Date / Time No Known Allergies Allergy Verified 11/11/15 00:29 - Medications Medications: Current Medications Gabapentin (Neurontin) 100 mg PO [facility] Heparin Sodium (Porcine) (Heparin) 5,000 units SC Q12 [facility] Last Admin: 07/02/17 15:01 Dose: 5,000 units Home Med (Patient's Own Medication) 1 tab PO BID [facility] Hydralazine HCl (Apresoline) 25 mg PO QID [facility] Last Admin: 07/02/17 14:39 Dose: Not Given Piperacillin Sod/Tazobactam Sod (Zosyn 2.25 Gm Iv Premix) 2.25 gm in 50 mls @ 100 mls/hr IVPB Q6H [facility] Last Admin: 07/02/17 14:39 Dose: 100 mls/hr Sodium Chloride (Sodium Chloride 0.9%) 1,000 mls @ 100 mls/hr IV .Q10H [facility] Last Admin: 07/02/17 15:01 Dose: Not Given Insulin Human Regular (Novolin R) 0 unit SC ACHS [facility] PRN Reason: Protocol Last Admin: 07/02/17 12:17 Dose: Not Given Morphine Sulfate (Morphine) 2 mg IVP Q4 PRN PRN Reason: Pain, severe (8-10) Ondansetron HCl (Zofran Inj) 4 mg IVP Q4H PRN PRN Reason: Nausea/Vomiting Pantoprazole Sodium (Protonix Inj) 40 mg IVP DAILY [facility] Last Admin: 07/02/17 11:06 Dose: 40 mg Prednisone (Prednisone Tab) 5 mg PO DAILY [facility] Last Admin: 07/02/17 11:06 Dose: 5 mg Tacrolimus (Prograf Cap) 4 mg PO BID [facility] Last Admin: 07/02/17 11:06 Dose: 4 mg Physical Exam - Constitutional Appears: Non-toxic, No Acute Distress - Head Exam Head Exam: NORMAL INSPECTION - Eye Exam Eye Exam: Normal appearance, PERRL - ENT Exam ENT Exam: Mucous Membranes Moist, Normal Exam - Neck Exam Neck exam: Positive for: Normal Inspection - Respiratory Exam Respiratory Exam: Clear to Auscultation Bilateral, NORMAL BREATHING PATTERN - Cardiovascular Exam Cardiovascular Exam: REGULAR RHYTHM, RRR - GI/Abdominal Exam GI & Abdominal Exam: Distended, Normal Bowel Sounds, Soft, Tenderness (RLQ) - Extremities Exam Extremities exam: Positive for: normal inspection Additional comments: LUE chronic edema - Neurological Exam Neurological exam: Alert, Oriented x3 - Psychiatric Exam Psychiatric exam: Normal Affect, Normal Mood - Skin Skin Exam: Intact, Normal Color, Warm Results - Vital Signs Recent Vital Signs: Last Vital Signs Temp 98.4 F 07/02/17 12:55 Pulse 91 H 07/02/17 14:38 Resp 20 07/02/17 12:55 BP 121/72 07/02/17 14:38 Pulse Ox 100 07/02/17 12:55 - Labs Result Diagrams: 07/02/17 05:59 07/02/17 05:59 Labs: Laboratory Results - last 24 hr 07/01/17 07/01/17 07/01/17 19:34 19:34 20:34 WBC 9.8 D RBC 4.74 Hgb 13.3 Hct 39.7 MCV 83.7 D MCH 28.1 MCHC 33.6 RDW 15.3 H Plt Count 190 MPV 10.0 Neut % (Auto) 75.8 H Lymph % (Auto) 9.5 L [place] % (Auto) 13.8 H Eos % (Auto) 0.5 Baso % (Auto) 0.4 Neut # 7.4 H Lymph # 0.9 L [place] # 1.4 H Eos # 0.0 Baso # 0.0 Neutrophils % (Manual) 79 H Band Neutrophils % Lymphocytes % (Manual) 9 L Monocytes % (Manual) 12 H Eosinophils % (Manual) Toxic Granulation Platelet Estimate Normal Polychromasia Hypochromasia (manual) Anisocytosis (manual) PT INR APTT Sodium 133 Potassium 4.3 Chloride 99 Carbon Dioxide 25 Anion Gap 14 BUN 38 H Creatinine 2.1 H Est GFR ( Amer) 41 Est GFR (Non-Af Amer) 34 POC Glucose (mg/dL) Random Glucose 129 H Calcium 9.0 Total Bilirubin 0.9 AST 23 ALT 24 Alkaline Phosphatase 83 Troponin I 0.0200 Total Protein 7.9 Albumin 4.0 Globulin 3.9 Albumin/Globulin Ratio 1.0 Lipase 22 L 07/02/17 07/02/17 07/02/17 05:59 05:59 08:12 WBC 10.1 RBC 4.23 L Hgb 11.8 L Hct 35.3 MCV 83.5 MCH 28.0 MCHC 33.5 RDW 15.3 H Plt Count 146 MPV 9.0 Neut % (Auto) 78.8 H Lymph % (Auto) 6.3 L [place] % (Auto) 13.9 H Eos % (Auto) 0.4 Baso % (Auto) 0.6 Neut # 8.0 H Lymph # 0.6 L [place] # 1.4 H Eos # 0.0 Baso # 0.1 Neutrophils % (Manual) 78 H Band Neutrophils % 5 H Lymphocytes % (Manual) 5 L Monocytes % (Manual) 11 H Eosinophils % (Manual) 1 Toxic Granulation Present Platelet Estimate Normal Polychromasia Slight Hypochromasia (manual) Slight Anisocytosis (manual) Slight PT INR APTT Sodium 132 Potassium 4.2 Chloride 102 Carbon Dioxide 21 L Anion Gap 14 BUN 32 H Creatinine 2.0 H Est GFR ( Amer) 43 Est GFR (Non-Af Amer) 36 POC Glucose (mg/dL) 173 H Random Glucose 164 H Calcium 8.4 L Total Bilirubin 0.9 AST 16 L D ALT 28 Alkaline Phosphatase 73 Troponin I Total Protein 6.8 Albumin 3.4 L Globulin 3.5 Albumin/Globulin Ratio 1.0 Lipase 07/02/17 07/02/17 07/02/17 09:28 12:08 13:48 WBC RBC Hgb Hct MCV MCH MCHC RDW Plt Count MPV Neut % (Auto) Lymph % (Auto) [place] % (Auto) Eos % (Auto) Baso % (Auto) Neut # Lymph # [place] # Eos # Baso # Neutrophils % (Manual) Band Neutrophils % Lymphocytes % (Manual) Monocytes % (Manual) Eosinophils % (Manual) Toxic Granulation Platelet Estimate Polychromasia Hypochromasia (manual) Anisocytosis (manual) PT 12.9 H INR 1.1 APTT 29 Sodium Potassium Chloride Carbon Dioxide Anion Gap BUN Creatinine Est GFR ( Amer) Est GFR (Non-Af Amer) POC Glucose (mg/dL) 180 H 173 H Random Glucose Calcium Total Bilirubin AST ALT Alkaline Phosphatase Troponin I Total Protein Albumin Globulin Albumin/Globulin Ratio Lipase Assessment & Plan (1) Renal transplant recipient Status: Acute (2) Abdominal pain Status: Acute (3) Perforated appendicitis Status: Acute (4) Diabetes mellitus type 2 in nonobese Status: Acute (5) HTN (hypertension) Status: Acute - Assessment and Plan (Free Text) Assessment: # renal transplant, ckd 3 # michael likely atn / volume depletion # acute ruptured appendicitis, phlegmon # craig renal mass # htn # dm plan: maintain prograf / myfortic / prednisone broad spectrum antibiotics surgical evaluation bp controlled check ua will need to follow up on renal mass outpt once acute issues resolved
[2017-07-02] MEDS: MYCOPHENOLIC ACID 180 MG PO SCH (17:46)
[2017-07-02] MEDS ORDERED: Dextrose 50% SYRINGE Inj (50 ml) IV PRN (19:28)
[2017-07-02] MEDS ORDERED: Glucagon Recombinant 1 mg Inj IM PRN (19:28)
[2017-07-02] MEDS: Morphine 4 MG/ML VIAL IVP PRN (20:50)
[2017-07-02] MEDS: (Lantus) Insulin Glargine, Recombinant SC SCH (21:45)
[2017-07-02 21:54] LABS: URINE BILIRUBIN NEGATIVE (NEGATIVE); URINE BLOOD NEGATIVE (NEGATIVE); URINE CLARITY Clear (Clear); URINE COLOR Yellow (YELLOW); URINE GLUCOSE (UA) 2+ mg/dL (Normal); URINE LEUKOCYTE ESTERASE NEG Leu/uL (Negative); URINE NITRATE NEGATIVE (NEGATIVE); URINE PROTEIN 1+ mg/dL (NEGATIVE)
--- NOTE | 2017-07-02 23:05 | CARD ---
APPROVED REPORT EKG Measurement Heart [id number] <Conclusion> Normal sinus rhythm Incomplete left bundle branch block Borderline ECG
[2017-07-03] MEDS: Piperacill/Tazo 2.25gm in Dex 2.25 GM/50 ML BAG IVPB SCH ×4 (00:51→18:30)
[2017-07-03] MEDS: Sodium Chloride 0.9% 1,000 ML IV SCH ×3 (03:03→19:30)
[2017-07-03] MEDS: Morphine 4 MG/ML VIAL IVP PRN ×2 (04:43→09:56)
[2017-07-03] MEDS ORDERED: (Novolog Mix 70/30) Insulin Aspart/Insulin Aspar 100 units/ml SC SCH (07:30)
[2017-07-03 07:43] LABS: BASO % 0.4 % (0.0-2.0); EOS # 0.1 K/uL (0.0-0.7); EOS % 0.9 % (0.0-4.0); HEMOGLOBIN 12.3 g/dL (12.0-18.0); LYMPH # 0.6 K/uL (1.0-4.3); LYMPH % 6.6 % (20.0-40.0); MEAN CELL VOLUME 84.2 fL (80.0-94.0); MEAN CORPUSCULAR HEMOGLOBIN 28.2 pg (27.0-31.0); MEAN CORPUSCULAR HGB CONC 33.5 g/dL (33.0-37.0); MONO # 1.1 K/uL (0.0-0.8); MONO % 12.2 % (0.0-10.0); NEUT # 7.3 K/uL (1.8-7.0); NEUT % 79.9 % (50.0-75.0); NRBC % 0.1 % (0.0-2.0); PLATELET COUNT 153 K/uL (130-400); RBC 4.35 Mil/uL (4.40-5.90); RED CELL DISTRIBUTION WIDTH 15.3 % (11.5-14.5); WHITE BLOOD COUNT 9.1 K/uL (4.8-10.8)
[2017-07-03 07:48] LABS: INR 1.1; PROTHROMBIN TIME 12.3 SECONDS (9.7-12.2)
[2017-07-03 08:16] LABS: ALBUMIN 3.3 g/dL (3.5-5.0); CALCIUM 8.6 mg/dl (8.6-10.4); MAGNESIUM 1.5 mg/dL (1.6-2.3)
[2017-07-03] MEDS: (Novolin R) Insulin Human Regular 100 units/ml vial SC SCH ×4 (08:44→21:32)
[2017-07-03] MEDS: MYCOPHENOLIC ACID 180 MG PO SCH ×2 (09:43→17:56)
[2017-07-03] MEDS: Omega-3-Acid Ethyl Esters 1 GM Cap PO SCH ×2 (09:44→17:57)
[2017-07-03] MEDS: Multiple Vitamins Tab PO SCH (09:47)
[2017-07-03 10:13] LABS: BANDS 3 % (0-2); BASOPHIL 1 % (0-2); LYMPHOCYTE 7 % (20-40); MONOCYTE 14 % (0-10); NEUTROPHIL 75 % (50-75); PLATELET ESTIMATE NORMAL (NORMAL); TOTAL CELLS COUNTED 100
[2017-07-03 10:14] LABS: ANISOCYTOSIS SLIGHT
--- NOTE | 2017-07-03 10:18 | CP.PCM.PN ---
Subjective - Date & Time of Evaluation Date of Evaluation: 07/03/17 Time of Evaluation: 11:05 - Subjective Subjective: General Surgery Note for Dr. Quevedo Patient seen and examined at bedside. No acute event overnight. Patient states pain has improved. He is tolerating diet. He has not had BM yet. Denies fevers/ chills. Objective - Vital Signs/Intake and Output Vital Signs (last 24 hours): Temp Pulse Resp BP Pulse Ox 98.4 F 73 18 109/68 96 07/03/17 08:42 07/03/17 09:42 07/03/17 08:42 07/03/17 09:42 07/03/17 08:42 Intake and Output: 07/03/17 07/03/17 06:59 18:59 Intake Total 800 Output Total 1400 Balance -600 - Medications Medications: Current Medications Calcitriol (Rocaltrol) 0.25 mcg PO DAILY [facility] Last Admin: 07/03/17 09:47 Dose: 0.25 mcg Dextrose (Dextrose 50% Inj) 0 ml IV STAT PRN; Protocol PRN Reason: Hypoglycemia Protocol Dextrose (Glutose 15) 0 gm PO ONCE PRN; Protocol PRN Reason: Hypoglycemia Protocol Gabapentin (Neurontin) 100 mg PO HS [facility] Last Admin: 07/02/17 21:51 Dose: Not Given Glucagon (Glucagen Diagnostic Kit) 0 mg IM STAT PRN; Protocol PRN Reason: Hypoglycemia Protocol Heparin Sodium (Porcine) (Heparin) 5,000 units SC Q12 [facility] Last Admin: 07/03/17 10:01 Dose: 5,000 units Home Med (Patient's Own Medication) 1 tab PO BID [facility] Last Admin: 07/03/17 09:43 Dose: 1 tab Hydralazine HCl (Apresoline) 25 mg PO QID [facility] Last Admin: 07/03/17 09:43 Dose: Not Given Piperacillin Sod/Tazobactam Sod (Zosyn 2.25 Gm Iv Premix) 2.25 gm in 50 mls @ 100 mls/hr IVPB Q6H [facility] Last Admin: 07/03/17 06:49 Dose: 100 mls/hr Sodium Chloride (Sodium Chloride 0.9%) 1,000 mls @ 100 mls/hr IV .Q10H [facility] Last Admin: 07/03/17 03:03 Dose: Not Given Dextrose (Dextrose 5% In Water 1000 Ml) 1,000 mls @ 0 mls/hr IV .Q0M PRN; Protocol; Per Protocol PRN Reason: Hypoglycemia Protocol Insulin Glargine (Lantus) 35 unit SC HS [facility] Last Admin: 07/02/17 21:45 Dose: 35 units Insulin Human Regular (Novolin R) 0 unit SC ACHS [facility] PRN Reason: Protocol Last Admin: 07/03/17 08:44 Dose: 4 unit Morphine Sulfate (Morphine) 2 mg IVP Q4 PRN PRN Reason: Pain, severe (8-10) Last Admin: 07/03/17 09:56 Dose: 2 mg Multivitamins (Hexavitamin) 1 tab PO DAILY [facility] Last Admin: 07/03/17 09:47 Dose: 1 tab Aollh-3-Jydi Ethyl Esters (Lovaza) 1 gm PO BID [facility] Last Admin: 07/03/17 09:44 Dose: 1 gm Ondansetron HCl (Zofran Inj) 4 mg IVP Q4H PRN PRN Reason: Nausea/Vomiting Pantoprazole Sodium (Protonix Inj) 40 mg IVP DAILY [facility] Last Admin: 07/03/17 09:55 Dose: 40 mg Prednisone (Prednisone Tab) 5 mg PO DAILY [facility] Last Admin: 07/03/17 09:46 Dose: 5 mg Tacrolimus (Prograf Cap) 4 mg PO BID [facility] Last Admin: 07/03/17 09:44 Dose: 4 mg - Labs Labs: 07/03/17 07:37 07/03/17 07:37 PT 12.3 SECONDS (9.7-12.2) H 07/03/17 07:37 INR 1.1 07/03/17 07:37 APTT 29 SECONDS (21-34) 07/02/17 09:28 - Constitutional Appears: No Acute Distress - Head Exam Head Exam: ATRAUMATIC, NORMOCEPHALIC - Eye Exam Eye Exam: Normal appearance - ENT Exam ENT Exam: Mucous Membranes Moist - Respiratory Exam Respiratory Exam: NORMAL BREATHING PATTERN - Cardiovascular Exam Cardiovascular Exam: REGULAR RHYTHM - GI/Abdominal Exam GI & Abdominal Exam: Soft, Tenderness (minimal to deep palpation). absent: Distended, Firm, Guarding, Rigid - Extremities Exam Extremities Exam: Normal Capillary Refill Additional comments: RUE AVF - not being used - Neurological Exam Neurological Exam: Alert, Awake, Oriented x3 - Psychiatric Exam Psychiatric exam: Normal Affect, Normal Mood - Skin Skin Exam: Dry, Intact, Normal Color, Warm Assessment and Plan - Assessment and Plan (Free Text) Plan: 51 M presents for abdominal pain with CT findings of ruptured appendicitis and 4.2 x 4cm abscess at tip of appendix -Renal diet -IV hydration -IV antibiotics -IR said no drainage at this time -Consider repeat CT scan tomorrow -Possible OR if clinical presentation worsens -Discussed with Dr. Sae Osorio PGY1
[2017-07-03] MEDS ORDERED: Magnesium Sulfate 1 gm in D5W 1 GM/100 ML BAG IVPB ONE (12:57)
--- NOTE | 2017-07-03 13:19 | CP.PCM.PN ---
Subjective - Date & Time of Evaluation Date of Evaluation: 07/03/17 Time of Evaluation: 13:17 - Subjective Subjective: Medicine progress note for Dr. Dubose's service Patient was seen and examined at bedside. Patient was laying comfortably in bed and in no distress. Patient reports he has mild discomfort in his right flank and back area. He also states his sore from laying in bed. Patient is tolerating his diet. Patient denies chest pain, abdominal pain, nausea, vomiting , fevers, and headaches. Objective - Vital Signs/Intake and Output Vital Signs (last 24 hours): Temp Pulse Resp BP Pulse Ox 98.4 F 73 18 109/68 96 07/03/17 08:42 07/03/17 09:42 07/03/17 08:42 07/03/17 09:42 07/03/17 08:42 Intake and Output: 07/03/17 07/03/17 06:59 18:59 Intake Total 800 Output Total 1400 Balance -600 - Medications Medications: Current Medications Calcitriol (Rocaltrol) 0.25 mcg PO DAILY [facility] Last Admin: 07/03/17 09:47 Dose: 0.25 mcg Dextrose (Dextrose 50% Inj) 0 ml IV STAT PRN; Protocol PRN Reason: Hypoglycemia Protocol Dextrose (Glutose 15) 0 gm PO ONCE PRN; Protocol PRN Reason: Hypoglycemia Protocol Gabapentin (Neurontin) 100 mg PO HS [facility] Last Admin: 07/02/17 21:51 Dose: Not Given Glucagon (Glucagen Diagnostic Kit) 0 mg IM STAT PRN; Protocol PRN Reason: Hypoglycemia Protocol Heparin Sodium (Porcine) (Heparin) 5,000 units SC Q12 [facility] Last Admin: 07/03/17 10:01 Dose: 5,000 units Home Med (Patient's Own Medication) 1 tab PO BID [facility] Last Admin: 07/03/17 09:43 Dose: 1 tab Hydralazine HCl (Apresoline) 25 mg PO QID [facility] Last Admin: 07/03/17 09:43 Dose: Not Given Piperacillin Sod/Tazobactam Sod (Zosyn 2.25 Gm Iv Premix) 2.25 gm in 50 mls @ 100 mls/hr IVPB Q6H [facility] Last Admin: 07/03/17 06:49 Dose: 100 mls/hr Sodium Chloride (Sodium Chloride 0.9%) 1,000 mls @ 100 mls/hr IV .Q10H [facility] Last Admin: 07/03/17 03:03 Dose: Not Given Dextrose (Dextrose 5% In Water 1000 Ml) 1,000 mls @ 0 mls/hr IV .Q0M PRN; Protocol; Per Protocol PRN Reason: Hypoglycemia Protocol Magnesium Sulfate/Dextrose (Magnesium Sulfate 1 Gm/100 Ml D5w) 1 gm in 100 mls @ 200 mls/hr IVPB ONCE ONE Stop: 07/03/17 13:26 Insulin Glargine (Lantus) 35 unit SC HS [facility] Last Admin: 07/02/17 21:45 Dose: 35 units Insulin Human Regular (Novolin R) 0 unit SC ACHS [facility] PRN Reason: Protocol Last Admin: 07/03/17 08:44 Dose: 4 unit Morphine Sulfate (Morphine) 2 mg IVP Q4 PRN PRN Reason: Pain, severe (8-10) Last Admin: 07/03/17 09:56 Dose: 2 mg Multivitamins (Hexavitamin) 1 tab PO DAILY [facility] Last Admin: 07/03/17 09:47 Dose: 1 tab Xgciv-1-[id number] Ethyl Esters (Lovaza) 1 gm PO BID [facility] Last Admin: 07/03/17 09:44 Dose: 1 gm Ondansetron HCl (Zofran Inj) 4 mg IVP Q4H PRN PRN Reason: Nausea/Vomiting Pantoprazole Sodium (Protonix Inj) 40 mg IVP DAILY [facility] Last Admin: 07/03/17 09:55 Dose: 40 mg Prednisone (Prednisone Tab) 5 mg PO DAILY [facility] Last Admin: 07/03/17 09:46 Dose: 5 mg Tacrolimus (Prograf Cap) 4 mg PO BID [facility] Last Admin: 07/03/17 09:44 Dose: 4 mg - Labs Labs: 07/03/17 07:37 07/03/17 07:37 PT 12.3 SECONDS (9.7-12.2) H 07/03/17 07:37 INR 1.1 07/03/17 07:37 APTT 29 SECONDS (21-34) 07/02/17 09:28 - Head Exam Head Exam: ATRAUMATIC, NORMOCEPHALIC - Eye Exam Eye Exam: EOMI, Normal appearance - ENT Exam ENT Exam: Mucous Membranes Moist - Respiratory Exam Respiratory Exam: Clear to Ausculation Bilateral, NORMAL BREATHING PATTERN. absent: Rales, Rhonchi, Wheezes, Respiratory Distress - Cardiovascular Exam Cardiovascular Exam: REGULAR RHYTHM, +S1, +S2 - GI/Abdominal Exam GI & Abdominal Exam: Soft, Tenderness (mild tenderness in RLQ), Normal Bowel Sounds. absent: Distended, Firm - Extremities Exam Additional comments: chronic left UE and LE lymphedema. - Neurological Exam Neurological Exam: Alert, Awake, Oriented x3 - Skin Skin Exam: Dry, Intact, Normal Color, Warm Assessment and Plan - Assessment and Plan (Free Text) Plan: 1. Ruptured Appendicitis with Abscess * General Surgery consulted - Dr. Quevedo - help appreciated * IR was consulted for possible drainage, help appreciated * Per IR on 07/02/17, there is phlegmatous ( inflammatory) changes in the RLQ. There is no drainable fluid. Once a fluid collection develops, an percutaneous drainage catheter will be placed. * Recommend repeating CT in two days. Patient to get CT on 07/04/17 * Imaging: CT Scan Abdomen and Pelvis: 1. Findings are consistent with acute ruptured appendicitis with a 4.2 cm collection/phlegmon at the tip. 2. 2.0 cm indeterminate lesion in the upper pole of the left kidney anteriorly could represent a complicated or hemorrhagic cyst. Neoplasm cannot be excluded. Please correlate with renal ultrasound. Meds: * NS @100cc/hr * Renally dosed Zosyn 2.25 gm Q6H * Morphine, Zofran PRN 2. History of Renal Transplant x 2 * Resume home Prograf 4 mg PO BID * Resume home Cellcept (brought in by patient) 180 mg PO BID * Resume home Prednisone 5 mg PO daily * Nephrology consult, Dr. Lorenzo, help appreciated 3. Renal Cyst * CT Scan Abdomen and Pelvis: 2.0 cm indeterminate lesion in the upper pole of the left kidney anteriorly could represent a complicated or hemorrhagic cyst. Neoplasm cannot be excluded. Please correlate with renal ultrasound. * Renal US shows 4.1 cm solid mass in the upper pole of the left [place] kidney * Outpatient follow up for mass once acute issues have resolved was recommended by nephrology History of Hypertension * Resumed home medication Hydralazine 25 mg PO QID History of Diabetes * Accuchecks * ISS - medium * home medication Lantus 35 units SC HS * home medication Gabapentin 100 mg PO HS * HGA1C 14.4 Hx HLD * Lipid panel: TG 176, Cholesterol 102, LDL 33, HDL 14 Prophylactic Measures * GI PPX: Protonix 40mg IVP daily * DVT PPX: Heparin 5000 units SC Q12H, [facility]. * Renal Diet Discussed with Dr. Dubose
--- NOTE | 2017-07-03 14:56 | CP.PCM.PN ---
Subjective - Date & Time of Evaluation Date of Evaluation: 07/03/17 Time of Evaluation: 14:52 - Subjective Subjective: Feels about same Now afebrile, no nausea, vomiting, pain tolerable Renal function about same Noted to have [place] kidney mass as well Objective - Vital Signs/Intake and Output Vital Signs (last 24 hours): Temp Pulse Resp BP Pulse Ox 98.4 F 73 18 109/68 96 07/03/17 08:42 07/03/17 09:42 07/03/17 08:42 07/03/17 09:42 07/03/17 08:42 Intake and Output: 07/03/17 07/03/17 06:59 18:59 Intake Total 800 Output Total 1400 Balance -600 - Medications Medications: Current Medications Calcitriol (Rocaltrol) 0.25 mcg PO DAILY [facility] Last Admin: 07/03/17 09:47 Dose: 0.25 mcg Dextrose (Dextrose 50% Inj) 0 ml IV STAT PRN; Protocol PRN Reason: Hypoglycemia Protocol Dextrose (Glutose 15) 0 gm PO ONCE PRN; Protocol PRN Reason: Hypoglycemia Protocol Gabapentin (Neurontin) 100 mg PO HS [facility] Last Admin: 07/02/17 21:51 Dose: Not Given Glucagon (Glucagen Diagnostic Kit) 0 mg IM STAT PRN; Protocol PRN Reason: Hypoglycemia Protocol Heparin Sodium (Porcine) (Heparin) 5,000 units SC Q12 [facility] Last Admin: 07/03/17 10:01 Dose: 5,000 units Home Med (Patient's Own Medication) 1 tab PO BID [facility] Last Admin: 07/03/17 09:43 Dose: 1 tab Hydralazine HCl (Apresoline) 25 mg PO QID [facility] Last Admin: 07/03/17 13:30 Dose: Not Given Piperacillin Sod/Tazobactam Sod (Zosyn 2.25 Gm Iv Premix) 2.25 gm in 50 mls @ 100 mls/hr IVPB Q6H [facility] Last Admin: 07/03/17 13:30 Dose: 100 mls/hr Sodium Chloride (Sodium Chloride 0.9%) 1,000 mls @ 100 mls/hr IV .Q10H [facility] Last Admin: 07/03/17 14:46 Dose: Not Given Dextrose (Dextrose 5% In Water 1000 Ml) 1,000 mls @ 0 mls/hr IV .Q0M PRN; Protocol; Per Protocol PRN Reason: Hypoglycemia Protocol Insulin Glargine (Lantus) 35 unit SC HS [facility] Last Admin: 07/02/17 21:45 Dose: 35 units Insulin Human Regular (Novolin R) 0 unit SC ACHS [facility] PRN Reason: Protocol Last Admin: 07/03/17 13:15 Dose: 4 unit Morphine Sulfate (Morphine) 2 mg IVP Q4 PRN PRN Reason: Pain, severe (8-10) Last Admin: 07/03/17 09:56 Dose: 2 mg Multivitamins (Hexavitamin) 1 tab PO DAILY [facility] Last Admin: 07/03/17 09:47 Dose: 1 tab Qjbkb-7-Mfuc Ethyl Esters (Lovaza) 1 gm PO BID [facility] Last Admin: 07/03/17 09:44 Dose: 1 gm Ondansetron HCl (Zofran Inj) 4 mg IVP Q4H PRN PRN Reason: Nausea/Vomiting Pantoprazole Sodium (Protonix Inj) 40 mg IVP DAILY [facility] Last Admin: 07/03/17 09:55 Dose: 40 mg Prednisone (Prednisone Tab) 5 mg PO DAILY [facility] Last Admin: 07/03/17 09:46 Dose: 5 mg Tacrolimus (Prograf Cap) 4 mg PO BID [facility] Last Admin: 07/03/17 09:44 Dose: 4 mg - Labs Labs: 07/03/17 07:37 07/03/17 07:37 PT 12.3 SECONDS (9.7-12.2) H 07/03/17 07:37 INR 1.1 07/03/17 07:37 APTT 29 SECONDS (21-34) 07/02/17 09:28 - Constitutional Appears: No Acute Distress, Chronically Ill - Head Exam Head Exam: ATRAUMATIC, NORMAL INSPECTION - Eye Exam Eye Exam: EOMI, Normal appearance - Neck Exam Neck Exam: Normal Inspection. absent: Tenderness - Respiratory Exam Respiratory Exam: Clear to Ausculation Bilateral, NORMAL BREATHING PATTERN - Cardiovascular Exam Cardiovascular Exam: REGULAR RHYTHM, +S1 - GI/Abdominal Exam GI & Abdominal Exam: Soft, Normal Bowel Sounds. absent: Tenderness - Extremities Exam Extremities Exam: Normal Inspection. absent: Tenderness - Neurological Exam Neurological Exam: Alert, CN II-XII Intact - Skin Skin Exam: Dry, Warm Assessment and Plan (1) Kidney lesion, [place], left Status: Acute (2) Perforated appendicitis Status: Acute (3) Renal transplant recipient Status: Acute (4) Diabetes mellitus type 2 in nonobese Status: Acute (5) HTN (hypertension) Status: Acute (6) PVD (peripheral vascular disease) Status: Acute - Assessment and Plan (Free Text) Plan: Continue IV ABs/IV fluids Monitor need for surgery Check FK levels Eventual outpt eval [place] left kidney mass
[2017-07-03] MEDS: (Lantus) Insulin Glargine, Recombinant SC SCH (21:42)
[2017-07-04] MEDS: Morphine 4 MG/ML VIAL IVP PRN ×2 (00:06→06:08)
[2017-07-04] MEDS: Piperacill/Tazo 2.25gm in Dex 2.25 GM/50 ML BAG IVPB SCH ×4 (01:17→18:48)
[2017-07-04] MEDS: Sodium Chloride 0.9% 1,000 ML IV SCH ×2 (06:07→18:48)
[2017-07-04 06:35] LABS: BASO % 0.7 % (0.0-2.0); EOS # 0.1 K/uL (0.0-0.7); HEMOGLOBIN 11.8 g/dL (12.0-18.0); LYMPH # 0.6 K/uL (1.0-4.3); LYMPH % 9.1 % (20.0-40.0); MEAN CELL VOLUME 83.2 fL (80.0-94.0); MEAN CORPUSCULAR HEMOGLOBIN 28.3 pg (27.0-31.0); MEAN CORPUSCULAR HGB CONC 34.1 g/dL (33.0-37.0); MEAN PLATELET VOLUME 9.2 fL (7.2-11.7); MONO # 0.8 K/uL (0.0-0.8); NEUT # 5.5 K/uL (1.8-7.0); NEUT % 78.2 % (50.0-75.0); NRBC % 0.1 % (0.0-2.0); PLATELET COUNT 168 K/uL (130-400); RBC 4.15 Mil/uL (4.40-5.90); RED CELL DISTRIBUTION WIDTH 15.4 % (11.5-14.5)
[2017-07-04 06:47] LABS: ALBUMIN 3.3 g/dL (3.5-5.0); CALCIUM 8.8 mg/dl (8.6-10.4); MAGNESIUM 1.8 mg/dL (1.6-2.3)
--- NOTE | 2017-07-04 06:55 | CP.PCM.PN ---
<Karla Hernandez - Last Filed: 07/04/17 18:16> Subjective - Date & Time of Evaluation Date of Evaluation: 07/04/17 Time of Evaluation: 06:55 - Subjective Subjective: Medicine progress note for Dr. Dubose's service Patient was seen and examined at bedside. Patient was sitting on side of bed in no acute distress. Patient reports he has mild discomfort in his right flank and back area. Patient is tolerating his diet; he reports he has been constipated for 4 days. Patient denies chest pain, abdominal pain, nausea, vomiting, fevers, and headaches. Objective - Vital Signs/Intake and Output Vital Signs (last 24 hours): Temp Pulse Resp BP Pulse Ox 98.4 F 77 20 149/90 97 07/03/17 23:55 07/03/17 23:55 07/03/17 23:55 07/03/17 23:55 07/03/17 23:55 Intake and Output: 07/03/17 07/04/17 18:59 06:59 Intake Total 1300 Output Total 400 Balance 1300 -400 - Medications Medications: Current Medications Calcitriol (Rocaltrol) 0.25 mcg PO DAILY [facility] Last Admin: 07/03/17 09:47 Dose: 0.25 mcg Dextrose (Dextrose 50% Inj) 0 ml IV STAT PRN; Protocol PRN Reason: Hypoglycemia Protocol Dextrose (Glutose 15) 0 gm PO ONCE PRN; Protocol PRN Reason: Hypoglycemia Protocol Gabapentin (Neurontin) 100 mg PO HS [facility] Last Admin: 07/03/17 21:43 Dose: 100 mg Glucagon (Glucagen Diagnostic Kit) 0 mg IM STAT PRN; Protocol PRN Reason: Hypoglycemia Protocol Heparin Sodium (Porcine) (Heparin) 5,000 units SC Q12 [facility] Last Admin: 07/03/17 21:48 Dose: 5,000 units Home Med (Patient's Own Medication) 1 tab PO BID [facility] Last Admin: 07/03/17 17:56 Dose: 1 tab Hydralazine HCl (Apresoline) 25 mg PO QID [facility] Last Admin: 07/03/17 21:42 Dose: 25 mg Piperacillin Sod/Tazobactam Sod (Zosyn 2.25 Gm Iv Premix) 2.25 gm in 50 mls @ 100 mls/hr IVPB Q6H [facility] Last Admin: 07/04/17 06:47 Dose: 100 mls/hr Sodium Chloride (Sodium Chloride 0.9%) 1,000 mls @ 100 mls/hr IV .Q10H [facility] Last Admin: 07/04/17 06:07 Dose: 100 mls/hr Dextrose (Dextrose 5% In Water 1000 Ml) 1,000 mls @ 0 mls/hr IV .Q0M PRN; Protocol; Per Protocol PRN Reason: Hypoglycemia Protocol Insulin Glargine (Lantus) 35 unit SC HS [facility] Last Admin: 07/03/17 21:42 Dose: 35 units Insulin Human Regular (Novolin R) 0 unit SC ACHS [facility] PRN Reason: Protocol Last Admin: 07/03/17 21:32 Dose: Not Given Morphine Sulfate (Morphine) 2 mg IVP Q4 PRN PRN Reason: Pain, severe (8-10) Last Admin: 07/04/17 06:08 Dose: 2 mg Multivitamins (Hexavitamin) 1 tab PO DAILY [facility] Last Admin: 07/03/17 09:47 Dose: 1 tab Nwtti-4-Dqya Ethyl Esters (Lovaza) 1 gm PO BID [facility] Last Admin: 07/03/17 17:57 Dose: 1 gm Ondansetron HCl (Zofran Inj) 4 mg IVP Q4H PRN PRN Reason: Nausea/Vomiting Pantoprazole Sodium (Protonix Inj) 40 mg IVP DAILY [facility] Last Admin: 07/03/17 09:55 Dose: 40 mg Prednisone (Prednisone Tab) 5 mg PO DAILY [facility] Last Admin: 07/03/17 09:46 Dose: 5 mg Tacrolimus (Prograf Cap) 4 mg PO BID [facility] Last Admin: 07/03/17 17:57 Dose: 4 mg - Labs Labs: 07/04/17 06:20 07/04/17 06:20 PT 12.3 SECONDS (9.7-12.2) H 07/03/17 07:37 INR 1.1 07/03/17 07:37 APTT 29 SECONDS (21-34) 07/02/17 09:28 - Additional Findings Additional findings: - Head Exam Head Exam: ATRAUMATIC, NORMOCEPHALIC - Eye Exam Eye Exam: EOMI, Normal appearance - ENT Exam ENT Exam: Mucous Membranes Moist - Respiratory Exam Respiratory Exam: Clear to Ausculation Bilateral, NORMAL BREATHING PATTERN. absent: Rales, Rhonchi, Wheezes, Respiratory Distress - Cardiovascular Exam Cardiovascular Exam: REGULAR RHYTHM, +S1, +S2 - GI/Abdominal Exam GI & Abdominal Exam: Soft, Tenderness (mild tenderness in RLQ), Normal Bowel Sounds. absent: Distended, Firm - Extremities Exam Additional comments: chronic left UE and LE lymphedema. - Neurological Exam Neurological Exam: Alert, Awake, Oriented x3 - Skin Skin Exam: Dry, Intact, Normal Color, Warm Assessment and Plan - Assessment and Plan (Free Text) Plan: Plan: 1. Ruptured Appendicitis with Abscess * General Surgery consulted - Dr. Quevedo - help appreciated * IR was consulted for possible drainage, help appreciated * Per IR on 07/02/17, there is phlegmatous ( inflammatory) changes in the RLQ. There is no drainable fluid. Once a fluid collection develops, an percutaneous drainage catheter will be placed. * F/U Repeat CT (07/04/17) * Imaging: CT Scan Abdomen and Pelvis: 1. Findings are consistent with acute ruptured appendicitis with a 4.2 cm collection/phlegmon at the tip. 2. 2.0 cm indeterminate lesion in the upper pole of the left kidney anteriorly could represent a complicated or hemorrhagic cyst. Neoplasm cannot be excluded. Please correlate with renal ultrasound. Meds: * NS @100cc/hr * Renally dosed Zosyn 2.25 gm Q6H * Morphine, Zofran PRN 2. History of Renal Transplant x 2 * Resume home Prograf 4 mg PO BID * Resume home Cellcept (brought in by patient) 180 mg PO BID * Resume home Prednisone 5 mg PO daily * Nephrology consult, Dr. Lorenzo, help appreciated 3. Renal Cyst * CT Scan Abdomen and Pelvis: 2.0 cm indeterminate lesion in the upper pole of the left kidney anteriorly could represent a complicated or hemorrhagic cyst. Neoplasm cannot be excluded. Please correlate with renal ultrasound. * Renal US shows 4.1 cm solid mass in the upper pole of the left [place] kidney * Outpatient follow up for mass once acute issues have resolved was recommended by nephrology History of Hypertension * Resumed home medication Hydralazine 25 mg PO QID History of Diabetes * Accuchecks * ISS - medium * home medication Lantus 35 units SC HS * home medication Gabapentin 100 mg PO HS * HGA1C 14.4 Hx HLD * Lipid panel: TG 176, Cholesterol 102, LDL 33, HDL 14 Prophylactic Measures * GI PPX: Protonix 40mg IVP daily * DVT PPX: Heparin 5000 units SC Q12H, SCDs. * Renal Diet Discussed with Dr. Dubose <Arias Dubose Jr. - Last Filed: 07/04/17 19:35> Objective - Vital Signs/Intake and Output Vital Signs (last 24 hours): Temp Pulse Resp BP Pulse Ox 98.3 F 70 20 124/70 98 07/04/17 15:00 07/04/17 18:53 07/04/17 15:00 07/04/17 18:53 07/04/17 15:00 Intake and Output: 07/04/17 07/05/17 18:59 06:59 Intake Total 2500 Balance 2500 - Medications Medications: Current Medications Calcitriol (Rocaltrol) 0.25 mcg PO DAILY [facility] Last Admin: 07/04/17 09:39 Dose: 0.25 mcg Dextrose (Dextrose 50% Inj) 0 ml IV STAT PRN; Protocol PRN Reason: Hypoglycemia Protocol Dextrose (Glutose 15) 0 gm PO ONCE PRN; Protocol PRN Reason: Hypoglycemia Protocol Docusate Sodium (Colace) 100 mg PO DAILY [facility] Last Admin: 07/04/17 18:54 Dose: 100 mg Gabapentin (Neurontin) 100 mg PO HS [facility] Last Admin: 07/03/17 21:43 Dose: 100 mg Glucagon (Glucagen Diagnostic Kit) 0 mg IM STAT PRN; Protocol PRN Reason: Hypoglycemia Protocol Heparin Sodium (Porcine) (Heparin) 5,000 units SC Q12 [facility] Last Admin: 07/04/17 09:38 Dose: 5,000 units Home Med (Patient's Own Medication) 1 tab PO BID [facility] Last Admin: 07/04/17 18:55 Dose: 1 tab Hydralazine HCl (Apresoline) 25 mg PO QID [facility] Last Admin: 07/04/17 18:54 Dose: 25 mg Piperacillin Sod/Tazobactam Sod (Zosyn 2.25 Gm Iv Premix) 2.25 gm in 50 mls @ 100 mls/hr IVPB Q6H [facility] Last Admin: 07/04/17 18:48 Dose: 100 mls/hr Sodium Chloride (Sodium Chloride 0.9%) 1,000 mls @ 100 mls/hr IV .Q10H [facility] Last Admin: 07/04/17 18:48 Dose: 100 mls/hr Dextrose (Dextrose 5% In Water 1000 Ml) 1,000 mls @ 0 mls/hr IV .Q0M PRN; Protocol; Per Protocol PRN Reason: Hypoglycemia Protocol Insulin Glargine (Lantus) 35 unit SC HS [facility] Last Admin: 07/03/17 21:42 Dose: 35 units Insulin Human Regular (Novolin R) 0 unit SC ACHS [facility] PRN Reason: Protocol Last Admin: 07/04/17 17:49 Dose: 3 unit Morphine Sulfate (Morphine) 2 mg IVP Q4 PRN PRN Reason: Pain, severe (8-10) Last Admin: 07/04/17 06:08 Dose: 2 mg Multivitamins (Hexavitamin) 1 tab PO DAILY [facility] Last Admin: 07/04/17 09:38 Dose: 1 tab Tqbbr-0-Yprd Ethyl Esters (Lovaza) 1 gm PO BID [facility] Last Admin: 07/04/17 18:56 Dose: 1 gm Ondansetron HCl (Zofran Inj) 4 mg IVP Q4H PRN PRN Reason: Nausea/Vomiting Pantoprazole Sodium (Protonix Inj) 40 mg IVP DAILY [facility] Last Admin: 07/04/17 09:38 Dose: 40 mg Prednisone (Prednisone Tab) 5 mg PO DAILY [facility] Last Admin: 07/04/17 09:38 Dose: 5 mg Tacrolimus (Prograf Cap) 4 mg PO BID [facility] Last Admin: 07/04/17 18:56 Dose: 4 mg - Labs Labs: 07/04/17 06:20 07/04/17 06:20 PT 12.3 SECONDS (9.7-12.2) H 07/03/17 07:37 INR 1.1 07/03/17 07:37 APTT 29 SECONDS (21-34) 07/02/17 09:28 Attending/Attestation - Attestation I have personally seen and examined this patient.: Yes I have fully participated in the care of the patient.: Yes I have reviewed all pertinent clinical information, including history, physical exam and plan: Yes Notes (Text): 07/04/17 19:35 Agree with resident note and plan of care
[2017-07-04] MEDS: (Novolin R) Insulin Human Regular 100 units/ml vial SC SCH ×4 (07:57→22:00)
[2017-07-04] MEDS ORDERED: Iohexol 240 (50 ml) PO ONE (09:00)
--- NOTE | 2017-07-04 09:17 | CP.PCM.PN ---
Subjective - Date & Time of Evaluation Date of Evaluation: 07/04/17 Time of Evaluation: 06:50 - Subjective Subjective: General Surgery Note for Dr. Quevedo Patient seen and examined at bedside. No acute event overnight. Patient states pain is minimal. He is tolerating diet. He has not had BM yet. Denies fevers/ chills. Patient requesting to take his home dose of lasix. Objective - Vital Signs/Intake and Output Vital Signs (last 24 hours): Temp Pulse Resp BP Pulse Ox 97.9 F 66 20 123/75 98 07/04/17 07:16 07/04/17 07:16 07/04/17 07:16 07/04/17 07:16 07/04/17 07:16 Intake and Output: 07/04/17 07/04/17 06:59 18:59 Output Total 400 Balance -400 - Medications Medications: Current Medications Calcitriol (Rocaltrol) 0.25 mcg PO DAILY [facility] Last Admin: 07/03/17 09:47 Dose: 0.25 mcg Dextrose (Dextrose 50% Inj) 0 ml IV STAT PRN; Protocol PRN Reason: Hypoglycemia Protocol Dextrose (Glutose 15) 0 gm PO ONCE PRN; Protocol PRN Reason: Hypoglycemia Protocol Gabapentin (Neurontin) 100 mg PO HS [facility] Last Admin: 07/03/17 21:43 Dose: 100 mg Glucagon (Glucagen Diagnostic Kit) 0 mg IM STAT PRN; Protocol PRN Reason: Hypoglycemia Protocol Heparin Sodium (Porcine) (Heparin) 5,000 units SC Q12 [facility] Last Admin: 07/03/17 21:48 Dose: 5,000 units Home Med (Patient's Own Medication) 1 tab PO BID [facility] Last Admin: 07/03/17 17:56 Dose: 1 tab Hydralazine HCl (Apresoline) 25 mg PO QID [facility] Last Admin: 07/03/17 21:42 Dose: 25 mg Piperacillin Sod/Tazobactam Sod (Zosyn 2.25 Gm Iv Premix) 2.25 gm in 50 mls @ 100 mls/hr IVPB Q6H [facility] Last Admin: 07/04/17 06:47 Dose: 100 mls/hr Sodium Chloride (Sodium Chloride 0.9%) 1,000 mls @ 100 mls/hr IV .Q10H [facility] Last Admin: 07/04/17 06:07 Dose: 100 mls/hr Dextrose (Dextrose 5% In Water 1000 Ml) 1,000 mls @ 0 mls/hr IV .Q0M PRN; Protocol; Per Protocol PRN Reason: Hypoglycemia Protocol Insulin Glargine (Lantus) 35 unit SC HS [facility] Last Admin: 07/03/17 21:42 Dose: 35 units Insulin Human Regular (Novolin R) 0 unit SC ACHS [facility] PRN Reason: Protocol Last Admin: 07/04/17 07:57 Dose: 4 unit Morphine Sulfate (Morphine) 2 mg IVP Q4 PRN PRN Reason: Pain, severe (8-10) Last Admin: 07/04/17 06:08 Dose: 2 mg Multivitamins (Hexavitamin) 1 tab PO DAILY [facility] Last Admin: 07/03/17 09:47 Dose: 1 tab Hnlxk-2-[id number] Ethyl Esters (Lovaza) 1 gm PO BID [facility] Last Admin: 07/03/17 17:57 Dose: 1 gm Ondansetron HCl (Zofran Inj) 4 mg IVP Q4H PRN PRN Reason: Nausea/Vomiting Pantoprazole Sodium (Protonix Inj) 40 mg IVP DAILY [facility] Last Admin: 07/03/17 09:55 Dose: 40 mg Prednisone (Prednisone Tab) 5 mg PO DAILY [facility] Last Admin: 07/03/17 09:46 Dose: 5 mg Tacrolimus (Prograf Cap) 4 mg PO BID [facility] Last Admin: 07/03/17 17:57 Dose: 4 mg - Labs Labs: 07/04/17 06:20 07/04/17 06:20 PT 12.3 SECONDS (9.7-12.2) H 07/03/17 07:37 INR 1.1 07/03/17 07:37 APTT 29 SECONDS (21-34) 07/02/17 09:28 - Constitutional Appears: No Acute Distress - Head Exam Head Exam: ATRAUMATIC, NORMOCEPHALIC - Eye Exam Eye Exam: Normal appearance - ENT Exam ENT Exam: Mucous Membranes Moist - Respiratory Exam Respiratory Exam: NORMAL BREATHING PATTERN - Cardiovascular Exam Cardiovascular Exam: REGULAR RHYTHM - GI/Abdominal Exam GI & Abdominal Exam: Soft, Tenderness (mild to deep palpation r side/r flank). absent: Distended, Firm, Guarding, Rigid, Rebound - Extremities Exam Extremities Exam: Normal Capillary Refill Additional comments: RUE AVF - not being used LUE swelling - Neurological Exam Neurological Exam: Alert, Awake, Oriented x3 - Psychiatric Exam Psychiatric exam: Normal Affect, Normal Mood - Skin Skin Exam: Dry, Intact, Normal Color, Warm Assessment and Plan - Assessment and Plan (Free Text) Plan: 51 M presents for abdominal pain with CT findings of ruptured appendicitis and 4.2 x 4cm abscess at tip of appendix -Renal diet -IV fluids -IV antibiotics -Possible repeat CT scan today -Possible IR or OR intervention if clinical presentation worsens -Discussed with Dr. Sae Osorio PGY1
[2017-07-04] MEDS: Multiple Vitamins Tab PO SCH (09:38)
[2017-07-04] MEDS: Omega-3-Acid Ethyl Esters 1 GM Cap PO SCH ×2 (09:39→18:56)
[2017-07-04] MEDS: MYCOPHENOLIC ACID 180 MG PO SCH ×2 (09:39→18:55)
[2017-07-04 10:07] LABS: ANISOCYTOSIS SLIGHT; BANDS 2 % (0-2); LYMPHOCYTE 7 % (20-40); MONOCYTE 11 % (0-10); NEUTROPHIL 80 % (50-75); PLATELET ESTIMATE NORMAL (NORMAL); TOTAL CELLS COUNTED 100
[2017-07-04 10:08] LABS: HYPOCHROMIC SLIGHT; LARGE PLATELETS PRESENT; POLYCHROMIC SLIGHT
--- NOTE | 2017-07-04 10:48 | CP.PCM.PN ---
Subjective - Date & Time of Evaluation Date of Evaluation: 07/04/17 Time of Evaluation: 10:45 - Subjective Subjective: Appears better afebrile, less abdominal pains no n, v, diarrhea, dyspnea creat sl higher at 2.2 Objective - Vital Signs/Intake and Output Vital Signs (last 24 hours): Temp Pulse Resp BP Pulse Ox 97.9 F 69 20 124/77 98 07/04/17 07:16 07/04/17 09:55 07/04/17 07:16 07/04/17 09:55 07/04/17 07:16 Intake and Output: 07/04/17 07/04/17 06:59 18:59 Output Total 400 Balance -400 - Medications Medications: Current Medications Calcitriol (Rocaltrol) 0.25 mcg PO DAILY [facility] Last Admin: 07/04/17 09:39 Dose: 0.25 mcg Dextrose (Dextrose 50% Inj) 0 ml IV STAT PRN; Protocol PRN Reason: Hypoglycemia Protocol Dextrose (Glutose 15) 0 gm PO ONCE PRN; Protocol PRN Reason: Hypoglycemia Protocol Gabapentin (Neurontin) 100 mg PO HS [facility] Last Admin: 07/03/17 21:43 Dose: 100 mg Glucagon (Glucagen Diagnostic Kit) 0 mg IM STAT PRN; Protocol PRN Reason: Hypoglycemia Protocol Heparin Sodium (Porcine) (Heparin) 5,000 units SC Q12 [facility] Last Admin: 07/04/17 09:38 Dose: 5,000 units Home Med (Patient's Own Medication) 1 tab PO BID [facility] Last Admin: 07/04/17 09:39 Dose: 1 tab Hydralazine HCl (Apresoline) 25 mg PO QID [facility] Last Admin: 07/04/17 09:46 Dose: Not Given Piperacillin Sod/Tazobactam Sod (Zosyn 2.25 Gm Iv Premix) 2.25 gm in 50 mls @ 100 mls/hr IVPB Q6H [facility] Last Admin: 07/04/17 06:47 Dose: 100 mls/hr Sodium Chloride (Sodium Chloride 0.9%) 1,000 mls @ 100 mls/hr IV .Q10H [facility] Last Admin: 07/04/17 06:07 Dose: 100 mls/hr Dextrose (Dextrose 5% In Water 1000 Ml) 1,000 mls @ 0 mls/hr IV .Q0M PRN; Protocol; Per Protocol PRN Reason: Hypoglycemia Protocol Insulin Glargine (Lantus) 35 unit SC HS [facility] Last Admin: 07/03/17 21:42 Dose: 35 units Insulin Human Regular (Novolin R) 0 unit SC ACHS [facility] PRN Reason: Protocol Last Admin: 07/04/17 07:57 Dose: 4 unit Morphine Sulfate (Morphine) 2 mg IVP Q4 PRN PRN Reason: Pain, severe (8-10) Last Admin: 07/04/17 06:08 Dose: 2 mg Multivitamins (Hexavitamin) 1 tab PO DAILY [facility] Last Admin: 07/04/17 09:38 Dose: 1 tab Urccj-3-[id number] Ethyl Esters (Lovaza) 1 gm PO BID [facility] Last Admin: 07/04/17 09:39 Dose: 1 gm Ondansetron HCl (Zofran Inj) 4 mg IVP Q4H PRN PRN Reason: Nausea/Vomiting Pantoprazole Sodium (Protonix Inj) 40 mg IVP DAILY [facility] Last Admin: 07/04/17 09:38 Dose: 40 mg Prednisone (Prednisone Tab) 5 mg PO DAILY [facility] Last Admin: 07/04/17 09:38 Dose: 5 mg Tacrolimus (Prograf Cap) 4 mg PO BID [facility] Last Admin: 07/04/17 09:39 Dose: 4 mg - Labs Labs: 07/04/17 06:20 07/04/17 06:20 PT 12.3 SECONDS (9.7-12.2) H 07/03/17 07:37 INR 1.1 07/03/17 07:37 APTT 29 SECONDS (21-34) 07/02/17 09:28 - Constitutional Appears: No Acute Distress, Chronically Ill - Head Exam Head Exam: ATRAUMATIC, NORMAL INSPECTION - Eye Exam Eye Exam: EOMI, Normal appearance - Neck Exam Neck Exam: Normal Inspection. absent: Tenderness - Respiratory Exam Respiratory Exam: Clear to Ausculation Bilateral, NORMAL BREATHING PATTERN - Cardiovascular Exam Cardiovascular Exam: REGULAR RHYTHM, +S1 - GI/Abdominal Exam GI & Abdominal Exam: Soft. absent: Tenderness - Extremities Exam Extremities Exam: Normal Inspection. absent: Tenderness - Neurological Exam Neurological Exam: Awake, CN II-XII Intact - Skin Skin Exam: Dry, Warm Assessment and Plan (1) Kidney lesion, [place], left Status: Acute (2) Perforated appendicitis Status: Acute (3) Renal transplant recipient Status: Acute (4) Diabetes mellitus type 2 in nonobese Status: Acute (5) HTN (hypertension) Status: Acute (6) PVD (peripheral vascular disease) Status: Acute - Assessment and Plan (Free Text) Plan: IV ABs serial chemistries check FK level surgical f/u
--- NOTE | 2017-07-04 16:00 | CT ---
PROCEDURE: CT scan abdomen pelvis dated 07/04/2017 HISTORY: r/o abscess Rule out abscess. COMPARISON: None. Comparison made with prior CT scan abdomen pelvis 07/01/2017 TECHNIQUE: Contiguous axial images of the abdomen and pelvis performed following oral contrast mid. IV contrast not injected and the study is therefore slightly limited. . Coronal and Sagittal reformats generated. Radiation dose: Total exam DLP = 945.87 mGy-cm. This CT exam was performed using one or more of the following dose reduction techniques: Automated exposure control, adjustment of the mA and/or kV according to patient size, and/or use of iterative reconstruction technique. FINDINGS: LOWER THORAX: Scattered atelectatic changes both lung bases. No effusion or basilar pneumothorax. Small hiatal hernia. Heart appears mildly enlarged. Small pericardial effusion. LIVER: Liver is upper limits of normal measuring nearly 19 cm in CC dimension. No obvious hepatic mass collection or calcification seen on this noncontrast study. . GALLBLADDER AND BILE DUCTS: Gallbladder contains some hyperdense material which could represent hyperdense sludge or possibly vicarious excretion of oral contrast material. PANCREAS: The pancreas is atrophic and fatty replaced. No obvious pancreatic masses or collections. . SPLEEN: Spleen exhibits normal size and attenuation pattern without mass collection or calcification. . ADRENALS: No adrenal lesions. KIDNEYS AND URETERS: [place] kidneys remain atrophic. Prominent cyst arising from the midpole posterior aspect upper/midpole left kidney unchanged. . Bilateral renal transplants located in the right and left margins of the lower abdomen/pelvis also unchanged. Multiple tiny calcifications peripherally about the collecting system right transplant kidney unchanged. BLADDER: Urinary bladder is physiologically distended. Mild bladder wall thickening may be due to muscular hypertrophy however cystitis not excluded. REPRODUCTIVE: Prostate gland remains mildly enlarged. APPENDIX: The appendix is not seen with any certainty on this study Re- demonstrated is an ill-defined round/elliptical shaped soft tissue density in the right lower quadrant of the abdomen which is difficulty to separate from adjacent loops of bowel. This focus measures approximately 5.3 x 4.2 cm and could represent phlegmon and or early abscess possibly possibly related to acute ruptured appendicitis. Clinical correlation recommended. BOWEL: Evaluation of the bowel is limited due to incomplete opacification. Stomach is distended with food debris liquid and air. Visualized loops of small bowel exhibit normal contour and caliber. No evidence acute mechanical small bowel obstruction. Oral contrast material opacifies portions of the proximal large bowel . Moderate amount of stool is present within the right colon consistent with fecal retention/constipation. PERITONEUM: There is also a small amount of free fluid seen within the right aspect of the pelvis. No free intraperitoneal air seen on this exam. Small fat containing umbilical hernia. LYMPH NODES: Unremarkable. No enlarged lymph nodes. VASCULATURE: Unremarkable. No aortic aneurysm. BONES: Minor multilevel degenerative spondylosis of the lower thoracic/lumbar spine. OTHER FINDINGS: None. IMPRESSION: Findings suggest a phlegmon and/or early abscess of right lower quadrant of the abdomen which is poorly defined. The appendix is not seen with certainty. Rule out acute ruptured appendicitis. There is also small amount of free fluid within the right aspect of the pelvis. Findings also suggest mild constipation. Bilateral renal transplants. No change atrophic [place] kidneys or left renal cyst. . There are areas of atelectasis both lung bases.
[2017-07-04] MEDS ORDERED: POLYETHYLENE GLYCOL 3350 17 GM/Dose PACKET PO ONE (17:35)
[2017-07-04] MEDS ORDERED: Simethicone 80 mg Chewtab PO ONE (17:36)
[2017-07-04] MEDS: (Lantus) Insulin Glargine, Recombinant SC SCH (22:10)
[2017-07-05] MEDS: Piperacill/Tazo 2.25gm in Dex 2.25 GM/50 ML BAG IVPB SCH ×6 (01:11→22:19)
[2017-07-05] MEDS: Sodium Chloride 0.9% 1,000 ML IV SCH (05:02)
[2017-07-05] MEDS ORDERED: Piperacillin/Tazobact 3.375 GM in Sodium Chloride 100 ML IVPB SCH (05:15)
[2017-07-05 08:33] LABS: BASO # 0.1 K/uL (0.0-0.2); BASO % 0.6 % (0.0-2.0); EOS # 0.1 K/uL (0.0-0.7); EOS % 1.2 % (0.0-4.0); LYMPH # 0.6 K/uL (1.0-4.3); MEAN CELL VOLUME 83.1 fL (80.0-94.0); MEAN CORPUSCULAR HEMOGLOBIN 28.5 pg (27.0-31.0); MEAN CORPUSCULAR HGB CONC 34.3 g/dL (33.0-37.0); MEAN PLATELET VOLUME 9.2 fL (7.2-11.7); MONO # 0.7 K/uL (0.0-0.8); MONO % 8.9 % (0.0-10.0); NEUT # 6.9 K/uL (1.8-7.0); NEUT % 82.3 % (50.0-75.0); PLATELET COUNT 220 K/uL (130-400); RBC 4.57 Mil/uL (4.40-5.90); WHITE BLOOD COUNT 8.4 K/uL (4.8-10.8)
[2017-07-05 08:56] LABS: ALBUMIN 3.8 g/dL (3.5-5.0); CALCIUM 9.9 mg/dl (8.6-10.4); MAGNESIUM 1.8 mg/dL (1.6-2.3)
[2017-07-05] MEDS: (Novolin R) Insulin Human Regular 100 units/ml vial SC SCH ×5 (10:00→22:22)
--- NOTE | 2017-07-05 10:02 | CP.PCM.PN ---
Subjective - Date & Time of Evaluation Date of Evaluation: 07/05/17 Time of Evaluation: 10:00 - Subjective Subjective: General Surgery Progress Note for Dr. Quevedo This pt was seen and examined this AM at bedside, no acute events to report overnight. Pt complains of constipation requesting medical aid. Denies fevers chills chest pain or SOB. Objective - Vital Signs/Intake and Output Vital Signs (last 24 hours): Temp Pulse Resp BP Pulse Ox 97.3 F L 67 20 119/80 94 L 07/05/17 08:10 07/05/17 08:10 07/05/17 08:10 07/05/17 08:10 07/05/17 08:10 Intake and Output: 07/05/17 07/05/17 06:59 18:59 Intake Total 450 Output Total 200 Balance 450 -200 - Medications Medications: Current Medications Acetaminophen (Tylenol 325mg Tab) 650 mg PO Q6 PRN PRN Reason: Pain, Mild (1-3) Calcitriol (Rocaltrol) 0.25 mcg PO DAILY [facility] Last Admin: 07/04/17 09:39 Dose: 0.25 mcg Dextrose (Dextrose 50% Inj) 0 ml IV STAT PRN; Protocol PRN Reason: Hypoglycemia Protocol Dextrose (Glutose 15) 0 gm PO ONCE PRN; Protocol PRN Reason: Hypoglycemia Protocol Docusate Sodium (Colace) 100 mg PO DAILY [facility] Last Admin: 07/04/17 18:54 Dose: 100 mg Gabapentin (Neurontin) 100 mg PO HS [facility] Last Admin: 07/04/17 22:12 Dose: 100 mg Glucagon (Glucagen Diagnostic Kit) 0 mg IM STAT PRN; Protocol PRN Reason: Hypoglycemia Protocol Heparin Sodium (Porcine) (Heparin) 5,000 units SC Q12 [facility] Last Admin: 07/04/17 22:00 Dose: 5,000 units Home Med (Patient's Own Medication) 1 tab PO BID [facility] Last Admin: 07/04/17 18:55 Dose: 1 tab Hydralazine HCl (Apresoline) 25 mg PO QID [facility] Last Admin: 07/04/17 22:12 Dose: 25 mg Piperacillin Sod/Tazobactam Sod (Zosyn 2.25 Gm Iv Premix) 2.25 gm in 50 mls @ 100 mls/hr IVPB Q6H [facility] Last Admin: 07/05/17 08:07 Dose: Not Given Dextrose (Dextrose 5% In Water 1000 Ml) 1,000 mls @ 0 mls/hr IV .Q0M PRN; Protocol; Per Protocol PRN Reason: Hypoglycemia Protocol Piperacillin Sod/Tazobactam Sod (Zosyn 2.25 Gm Iv Premix) 2.25 gm in 50 mls @ 100 mls/hr IVPB Q6H [facility] Last Admin: 07/05/17 05:25 Dose: 100 mls/hr Insulin Glargine (Lantus) 35 unit SC HS [facility] Last Admin: 07/04/17 22:10 Dose: 35 units Insulin Human Regular (Novolin R) 0 unit SC ACHS [facility] PRN Reason: Protocol Last Admin: 07/04/17 22:00 Dose: Not Given Morphine Sulfate (Morphine) 2 mg IVP Q4 PRN PRN Reason: Pain, severe (8-10) Last Admin: 07/04/17 06:08 Dose: 2 mg Multivitamins (Hexavitamin) 1 tab PO DAILY [facility] Last Admin: 07/04/17 09:38 Dose: 1 tab Fyrob-0-Hsmv Ethyl Esters (Lovaza) 1 gm PO BID [facility] Last Admin: 07/04/17 18:56 Dose: 1 gm Ondansetron HCl (Zofran Inj) 4 mg IVP Q4H PRN PRN Reason: Nausea/Vomiting Last Admin: 07/05/17 07:16 Dose: 4 mg Pantoprazole Sodium (Protonix Inj) 40 mg IVP DAILY [facility] Last Admin: 07/04/17 09:38 Dose: 40 mg Prednisone (Prednisone Tab) 5 mg PO DAILY [facility] Last Admin: 07/04/17 09:38 Dose: 5 mg Tacrolimus (Prograf Cap) 4 mg PO BID [facility] Last Admin: 07/04/17 18:56 Dose: 4 mg - Labs Labs: 07/05/17 08:20 07/05/17 08:20 PT 12.3 SECONDS (9.7-12.2) H 07/03/17 07:37 INR 1.1 07/03/17 07:37 APTT 29 SECONDS (21-34) 07/02/17 09:28 - Constitutional Appears: Non-toxic, No Acute Distress - Head Exam Head Exam: ATRAUMATIC, NORMOCEPHALIC - Eye Exam Eye Exam: EOMI, Normal appearance - ENT Exam ENT Exam: Mucous Membranes Moist - Respiratory Exam Respiratory Exam: NORMAL BREATHING PATTERN - Cardiovascular Exam Cardiovascular Exam: +S1, +S2 - GI/Abdominal Exam GI & Abdominal Exam: Soft. absent: Firm, Guarding, Rigid, Tenderness - Neurological Exam Neurological Exam: Alert, Awake - Psychiatric Exam Psychiatric exam: Normal Affect, Normal Mood - Skin Skin Exam: Dry, Intact Assessment and Plan - Assessment and Plan (Free Text) Assessment: 51M s/p ruptured appendicitis CT scan shows phlegmon in RLQ WBC 8.4 Non tender Dulcolax suppository Magnesium Citrate Monitor bowel function Continue ABX D/W Dr. Sae Mueller PGY2
--- NOTE | 2017-07-05 11:09 | CP.PCM.PN ---
Subjective - Date & Time of Evaluation Date of Evaluation: 07/05/17 Time of Evaluation: 11:04 - Subjective Subjective: Medicine progress note for Dr. Dubose's service Patient was seen and examined at bedside. Patient complains of a lot of abdominal pain, gas and constipation. Patient has not moved bowels since being at the hospital. Patient vomited once this morning, just prior to examination. Patient denies chest pain, shortness of breath, fevers, and headaches. Objective - Vital Signs/Intake and Output Vital Signs (last 24 hours): Temp Pulse Resp BP Pulse Ox 97.3 F L 67 20 119/80 94 L 07/05/17 08:10 07/05/17 08:10 07/05/17 08:10 07/05/17 08:10 07/05/17 08:10 Intake and Output: 07/05/17 07/05/17 06:59 18:59 Intake Total 450 Output Total 200 Balance 450 -200 - Medications Medications: Current Medications Acetaminophen (Tylenol 325mg Tab) 975 mg PO Q8 PRN PRN Reason: Pain, moderate (4-7) Calcitriol (Rocaltrol) 0.25 mcg PO DAILY [facility] Last Admin: 07/04/17 09:39 Dose: 0.25 mcg Dextrose (Dextrose 50% Inj) 0 ml IV STAT PRN; Protocol PRN Reason: Hypoglycemia Protocol Dextrose (Glutose 15) 0 gm PO ONCE PRN; Protocol PRN Reason: Hypoglycemia Protocol Docusate Sodium (Colace) 100 mg PO DAILY [facility] Last Admin: 07/04/17 18:54 Dose: 100 mg Gabapentin (Neurontin) 100 mg PO HS [facility] Last Admin: 07/04/17 22:12 Dose: 100 mg Glucagon (Glucagen Diagnostic Kit) 0 mg IM STAT PRN; Protocol PRN Reason: Hypoglycemia Protocol Heparin Sodium (Porcine) (Heparin) 5,000 units SC Q12 [facility] Last Admin: 07/04/17 22:00 Dose: 5,000 units Home Med (Patient's Own Medication) 1 tab PO BID [facility] Last Admin: 07/04/17 18:55 Dose: 1 tab Hydralazine HCl (Apresoline) 25 mg PO QID [facility] Last Admin: 07/04/17 22:12 Dose: 25 mg Piperacillin Sod/Tazobactam Sod (Zosyn 2.25 Gm Iv Premix) 2.25 gm in 50 mls @ 100 mls/hr IVPB Q6H [facility] Last Admin: 07/05/17 08:07 Dose: Not Given Dextrose (Dextrose 5% In Water 1000 Ml) 1,000 mls @ 0 mls/hr IV .Q0M PRN; Protocol; Per Protocol PRN Reason: Hypoglycemia Protocol Piperacillin Sod/Tazobactam Sod (Zosyn 2.25 Gm Iv Premix) 2.25 gm in 50 mls @ 100 mls/hr IVPB Q6H [facility] Last Admin: 07/05/17 05:25 Dose: 100 mls/hr Insulin Glargine (Lantus) 35 unit SC HS [facility] Last Admin: 07/04/17 22:10 Dose: 35 units Insulin Human Regular (Novolin R) 0 unit SC ACHS [facility] PRN Reason: Protocol Last Admin: 07/04/17 22:00 Dose: Not Given Morphine Sulfate (Morphine) 2 mg IVP Q4 PRN PRN Reason: Pain, severe (8-10) Last Admin: 07/04/17 06:08 Dose: 2 mg Multivitamins (Hexavitamin) 1 tab PO DAILY [facility] Last Admin: 07/04/17 09:38 Dose: 1 tab Yypbm-0-[id number] Ethyl Esters (Lovaza) 1 gm PO BID [facility] Last Admin: 07/04/17 18:56 Dose: 1 gm Ondansetron HCl (Zofran Inj) 4 mg IVP Q4H PRN PRN Reason: Nausea/Vomiting Last Admin: 07/05/17 07:16 Dose: 4 mg Pantoprazole Sodium (Protonix Inj) 40 mg IVP DAILY [facility] Last Admin: 07/04/17 09:38 Dose: 40 mg Prednisone (Prednisone Tab) 5 mg PO DAILY [facility] Last Admin: 07/04/17 09:38 Dose: 5 mg Tacrolimus (Prograf Cap) 4 mg PO BID [facility] Last Admin: 07/04/17 18:56 Dose: 4 mg - Labs Labs: 07/05/17 08:20 07/05/17 08:20 PT 12.3 SECONDS (9.7-12.2) H 07/03/17 07:37 INR 1.1 07/03/17 07:37 APTT 29 SECONDS (21-34) 07/02/17 09:28 - Additional Findings Additional findings: - Head Exam Head Exam: ATRAUMATIC, NORMOCEPHALIC - Eye Exam Eye Exam: EOMI, Normal appearance - ENT Exam ENT Exam: Mucous Membranes Moist - Respiratory Exam Respiratory Exam: Clear to Ausculation Bilateral, NORMAL BREATHING PATTERN. absent: Rales, Rhonchi, Wheezes, Respiratory Distress - Cardiovascular Exam Cardiovascular Exam: REGULAR RHYTHM, +S1, +S2 - GI/Abdominal Exam GI & Abdominal Exam: Soft, Tenderness (tenderness in RLQ, epigastric), Distended , Firm, Normal Bowel Sounds. - Extremities Exam Additional comments: chronic left UE and LE lymphedema. - Neurological Exam Neurological Exam: Alert, Awake, Oriented x3 - Skin Skin Exam: Dry, Intact, Normal Color, Warm Assessment and Plan - Assessment and Plan (Free Text) Plan: 1. Ruptured Appendicitis with Abscess * General Surgery consulted - Dr. Quevedo - help appreciated * IR was consulted for possible drainage, help appreciated * Per IR on 07/02/17, there is phlegmatous ( inflammatory) changes in the RLQ. There is no drainable fluid. Once a fluid collection develops, an percutaneous drainage catheter will be placed. * suggested repeat CT on 07/04/17 * Imaging: * CT Scan Abdomen and Pelvis (07/02): 1. Findings are consistent with acute ruptured appendicitis with a 4.2 cm collection/phlegmon at the tip. 2. 2.0 cm indeterminate lesion in the upper pole of the left kidney anteriorly could represent a complicated or hemorrhagic cyst. Neoplasm cannot be excluded. Please correlate with renal ultrasound. * CT Abd/Pelv (07/04): Findings suggest a phlegmon and/or early abscess of right lower quadrant of the abdomen which is poorly defined. The appendix is not seen with certainty. Rule out acute ruptured appendicitis. There is also small amount of free fluid within the right aspect of the pelvis. Findings also suggest mild constipation. Bilateral renal transplants. No change atrophic [place] kidneys or left renal cyst. There are areas of atelectasis both lung bases. Meds: * NS @100cc/hr * Renally dosed Zosyn 2.25 gm Q6H * Morphine, Zofran PRN 2. History of Renal Transplant x 2 * Resume home Prograf 4 mg PO BID * Resume home Cellcept (brought in by patient) 180 mg PO BID * Resume home Prednisone 5 mg PO daily * Nephrology consult, Dr. Lorenzo, help appreciated 3. Renal Cyst * CT Scan Abdomen and Pelvis: 2.0 cm indeterminate lesion in the upper pole of the left kidney anteriorly could represent a complicated or hemorrhagic cyst. Neoplasm cannot be excluded. Please correlate with renal ultrasound. * Renal US shows 4.1 cm solid mass in the upper pole of the left [place] kidney * Outpatient follow up for mass once acute issues have resolved was recommended by nephrology 4. History of Hypertension * Resumed home medication Hydralazine 25 mg PO QID 5. History of Diabetes * Accuchecks * ISS - medium * home medication Lantus 35 units SC HS * home medication Gabapentin 100 mg PO HS * HGA1C 14.4 6. Hx HLD * Lipid panel: TG 176, Cholesterol 102, LDL 33, HDL 14 7. Constipation/gas * Enema * One dose of dulcolax [place] and lactulose 20gm given on 07/05 * Colace 100mg PO daily * Simethicone 80mg PO Q6prn for GI distress/gas 8. Prophylactic Measures * GI PPX: Protonix 40mg IVP daily * DVT PPX: Heparin 5000 units SC Q12H, SCDs. * Renal Diet Discussed with Dr. Dubose
[2017-07-05 11:57] LABS: BANDS 1 % (0-2); EOSINOPHIL 3 % (0-4); LYMPHOCYTE 4 % (20-40); MONOCYTE 6 % (0-10); NEUTROPHIL 86 % (50-75); PLATELET ESTIMATE NORMAL (NORMAL); TOTAL CELLS COUNTED 100
[2017-07-05 11:58] LABS: ANISOCYTOSIS SLIGHT; GIANT PLATELETS PRESENT; LARGE PLATELETS PRESENT
[2017-07-05 11:59] LABS: POLYCHROMIC SLIGHT; TOXIC GRANULATION PRESENT
[2017-07-05] MEDS: Simethicone 80 mg Chewtab PO PRN (13:40)
[2017-07-05] MEDS: MYCOPHENOLIC ACID 180 MG PO SCH ×3 (14:27→18:29)
[2017-07-05] MEDS: Omega-3-Acid Ethyl Esters 1 GM Cap PO SCH ×2 (14:29→18:12)
[2017-07-05] MEDS: Multiple Vitamins Tab PO SCH (14:29)
--- NOTE | 2017-07-05 15:49 | CP.PCM.PN ---
Subjective - Date & Time of Evaluation Date of Evaluation: 07/05/17 Time of Evaluation: 15:46 - Subjective Subjective: In more distress; increased abdominal distention, decreased BMs, pt wretching Creat increased to 2.6 More acidemic in lab work afebrile Objective - Vital Signs/Intake and Output Vital Signs (last 24 hours): Temp Pulse Resp BP Pulse Ox 97.3 F L 79 20 132/78 94 L 07/05/17 08:10 07/05/17 14:23 07/05/17 08:10 07/05/17 14:23 07/05/17 08:10 Intake and Output: 07/05/17 07/05/17 06:59 18:59 Intake Total 450 Output Total 200 Balance 450 -200 - Medications Medications: Current Medications Acetaminophen (Tylenol 325mg Tab) 975 mg PO Q8 PRN PRN Reason: Pain, moderate (4-7) Last Admin: 07/05/17 13:40 Dose: 975 mg Calcitriol (Rocaltrol) 0.25 mcg PO DAILY [facility] Last Admin: 07/05/17 14:30 Dose: Not Given Dextrose (Dextrose 50% Inj) 0 ml IV STAT PRN; Protocol PRN Reason: Hypoglycemia Protocol Dextrose (Glutose 15) 0 gm PO ONCE PRN; Protocol PRN Reason: Hypoglycemia Protocol Docusate Sodium (Colace) 100 mg PO DAILY [facility] Last Admin: 07/05/17 14:24 Dose: 100 mg Gabapentin (Neurontin) 100 mg PO HS [facility] Last Admin: 07/04/17 22:12 Dose: 100 mg Glucagon (Glucagen Diagnostic Kit) 0 mg IM STAT PRN; Protocol PRN Reason: Hypoglycemia Protocol Heparin Sodium (Porcine) (Heparin) 5,000 units SC Q12 [facility] Last Admin: 07/05/17 12:28 Dose: Not Given Home Med (Patient's Own Medication) 1 tab PO BID [facility] Last Admin: 07/05/17 14:27 Dose: 1 tab Hydralazine HCl (Apresoline) 25 mg PO QID [facility] Last Admin: 07/05/17 14:25 Dose: 25 mg Dextrose (Dextrose 5% In Water 1000 Ml) 1,000 mls @ 0 mls/hr IV .Q0M PRN; Protocol; Per Protocol PRN Reason: Hypoglycemia Protocol Piperacillin Sod/Tazobactam Sod (Zosyn 2.25 Gm Iv Premix) 2.25 gm in 50 mls @ 100 mls/hr IVPB Q6H [facility] Last Admin: 07/05/17 12:14 Dose: 100 mls/hr Insulin Glargine (Lantus) 35 unit SC HS [facility] Last Admin: 07/04/17 22:10 Dose: 35 units Insulin Human Regular (Novolin R) 0 unit SC ACHS [facility] PRN Reason: Protocol Last Admin: 07/05/17 13:53 Dose: Not Given Morphine Sulfate (Morphine) 2 mg IVP Q4 PRN PRN Reason: Pain, severe (8-10) Last Admin: 07/04/17 06:08 Dose: 2 mg Multivitamins (Hexavitamin) 1 tab PO DAILY [facility] Last Admin: 07/05/17 14:29 Dose: Not Given Guwzm-6-Swzb Ethyl Esters (Lovaza) 1 gm PO BID [facility] Last Admin: 07/05/17 14:29 Dose: Not Given Ondansetron HCl (Zofran Inj) 4 mg IVP Q4H PRN PRN Reason: Nausea/Vomiting Last Admin: 07/05/17 12:07 Dose: 4 mg Pantoprazole Sodium (Protonix Inj) 40 mg IVP DAILY [facility] Last Admin: 07/05/17 12:07 Dose: 40 mg Prednisone (Prednisone Tab) 5 mg PO DAILY [facility] Last Admin: 07/05/17 14:25 Dose: 5 mg Simethicone (Mylicon Chew Tab) 80 mg PO Q6H PRN PRN Reason: GI distress Last Admin: 07/05/17 13:40 Dose: 80 mg Tacrolimus (Prograf Cap) 4 mg PO BID [facility] Last Admin: 07/05/17 14:26 Dose: 4 mg - Labs Labs: 07/05/17 08:20 07/05/17 08:20 PT 12.3 SECONDS (9.7-12.2) H 07/03/17 07:37 INR 1.1 07/03/17 07:37 APTT 29 SECONDS (21-34) 07/02/17 09:28 - Constitutional Appears: In Acute Distress, Chronically Ill - Head Exam Head Exam: ATRAUMATIC, NORMAL INSPECTION - Eye Exam Eye Exam: EOMI, Normal appearance - Neck Exam Neck Exam: Normal Inspection. absent: Tenderness - Respiratory Exam Respiratory Exam: Clear to Ausculation Bilateral, NORMAL BREATHING PATTERN - GI/Abdominal Exam GI & Abdominal Exam: Distended, Guarding, Hypoactive Bowel Sounds - Extremities Exam Extremities Exam: Normal Inspection. absent: Tenderness - Neurological Exam Neurological Exam: Alert, CN II-XII Intact - Skin Skin Exam: Dry, Warm Assessment and Plan (1) Kidney lesion, elim ira, left Status: Acute (2) Perforated appendicitis Status: Acute (3) Renal transplant recipient Status: Acute (4) Diabetes mellitus type 2 in nonobese Status: Acute (5) HTN (hypertension) Status: Acute (6) PVD (peripheral vascular disease) Status: Acute - Assessment and Plan (Free Text) Plan: Increase IV fluids- bicarb drip IV ABs serial chemistries contact surgery- ? OR needed
[2017-07-05] MEDS ORDERED: Sodium Chloride 0.9% 1,000 ML IV SCH (16:00)
--- NOTE | 2017-07-05 16:38 | CP.PCM.PN ---
Subjective - Date & Time of Evaluation Date of Evaluation: 07/05/17 Time of Evaluation: 16:38 - Subjective Subjective: somewhat distended and uncomfortable. Cr now elevated ct showed inflammation rlq with nothing to drain percutaneously dw Dr moseley if no improvement , might need exploration Objective - Vital Signs/Intake and Output Vital Signs (last 24 hours): Temp Pulse Resp BP Pulse Ox 97.8 F 78 20 136/77 99 07/05/17 15:14 07/05/17 15:14 07/05/17 15:14 07/05/17 15:14 07/05/17 15:14 Intake and Output: 07/05/17 07/05/17 06:59 18:59 Intake Total 450 900 Output Total 200 Balance 450 700 - Medications Medications: Current Medications Acetaminophen (Tylenol 325mg Tab) 975 mg PO Q8 PRN PRN Reason: Pain, moderate (4-7) Last Admin: 07/05/17 13:40 Dose: 975 mg Calcitriol (Rocaltrol) 0.25 mcg PO DAILY [facility] Last Admin: 07/05/17 14:30 Dose: Not Given Dextrose (Dextrose 50% Inj) 0 ml IV STAT PRN; Protocol PRN Reason: Hypoglycemia Protocol Dextrose (Glutose 15) 0 gm PO ONCE PRN; Protocol PRN Reason: Hypoglycemia Protocol Docusate Sodium (Colace) 100 mg PO DAILY [facility] Last Admin: 07/05/17 14:24 Dose: 100 mg Gabapentin (Neurontin) 100 mg PO HS [facility] Last Admin: 07/04/17 22:12 Dose: 100 mg Glucagon (Glucagen Diagnostic Kit) 0 mg IM STAT PRN; Protocol PRN Reason: Hypoglycemia Protocol Heparin Sodium (Porcine) (Heparin) 5,000 units SC Q12 [facility] Last Admin: 07/05/17 12:28 Dose: Not Given Home Med (Patient's Own Medication) 1 tab PO BID [facility] Last Admin: 07/05/17 14:27 Dose: 1 tab Hydralazine HCl (Apresoline) 25 mg PO QID [facility] Last Admin: 07/05/17 14:25 Dose: 25 mg Piperacillin Sod/Tazobactam Sod (Zosyn 2.25 Gm Iv Premix) 2.25 gm in 50 mls @ 100 mls/hr IVPB Q6H [facility] Last Admin: 07/05/17 12:14 Dose: 100 mls/hr Sodium Bicarbonate 50 ml/ (Sodium Chloride) 1,050 mls @ 100 mls/hr IV .[id number] [facility] Insulin Glargine (Lantus) 35 unit SC HS [facility] Last Admin: 07/04/17 22:10 Dose: 35 units Insulin Human Regular (Novolin R) 0 unit SC ACHS [facility] PRN Reason: Protocol Last Admin: 07/05/17 13:53 Dose: Not Given Morphine Sulfate (Morphine) 2 mg IVP Q4 PRN PRN Reason: Pain, severe (8-10) Last Admin: 07/04/17 06:08 Dose: 2 mg Multivitamins (Hexavitamin) 1 tab PO DAILY [facility] Last Admin: 07/05/17 14:29 Dose: Not Given Ktfov-0-Ckzl Ethyl Esters (Lovaza) 1 gm PO BID [facility] Last Admin: 07/05/17 14:29 Dose: Not Given Ondansetron HCl (Zofran Inj) 4 mg IVP Q4H PRN PRN Reason: Nausea/Vomiting Last Admin: 07/05/17 12:07 Dose: 4 mg Pantoprazole Sodium (Protonix Inj) 40 mg IVP DAILY [facility] Last Admin: 07/05/17 12:07 Dose: 40 mg Prednisone (Prednisone Tab) 5 mg PO DAILY [facility] Last Admin: 07/05/17 14:25 Dose: 5 mg Simethicone (Mylicon Chew Tab) 80 mg PO Q6H PRN PRN Reason: GI distress Last Admin: 07/05/17 13:40 Dose: 80 mg Tacrolimus (Prograf Cap) 4 mg PO BID [facility] Last Admin: 07/05/17 14:26 Dose: 4 mg - Labs Labs: 07/05/17 08:20 07/05/17 08:20 PT 12.3 SECONDS (9.7-12.2) H 07/03/17 07:37 INR 1.1 07/03/17 07:37 APTT 29 SECONDS (21-34) 07/02/17 09:28
[2017-07-05] MEDS: Morphine 4 MG/ML VIAL IVP PRN (22:20)
[2017-07-05] MEDS: (Lantus) Insulin Glargine, Recombinant SC SCH (22:22)
[2017-07-06] MEDS: Piperacill/Tazo 2.25gm in Dex 2.25 GM/50 ML BAG IVPB SCH ×3 (04:28→17:16)
--- NOTE | 2017-07-06 07:19 | CP.PCM.PN ---
Subjective - Date & Time of Evaluation Date of Evaluation: 07/06/17 Time of Evaluation: 07:16 - Subjective Subjective: Notes reviewed Feels somewhat better this am No nausea currently, no abdominal pain currently, distention noted Required morphine overnight - able to sleep BM with enema yesterday + fatigue and weakness, no fever or chills ROS negative other than stated above Objective - Vital Signs/Intake and Output Vital Signs (last 24 hours): Temp Pulse Resp BP Pulse Ox 97.9 F 73 20 165/96 H 97 07/05/17 23:55 07/05/17 23:55 07/05/17 23:55 07/05/17 23:55 07/05/17 23:55 Intake and Output: 07/06/17 07/06/17 06:59 18:59 Intake Total 1640 Output Total 300 Balance 1340 - Medications Medications: Current Medications Acetaminophen (Tylenol 325mg Tab) 975 mg PO Q8 PRN PRN Reason: Pain, moderate (4-7) Last Admin: 07/05/17 13:40 Dose: 975 mg Calcitriol (Rocaltrol) 0.25 mcg PO DAILY [facility] Last Admin: 07/05/17 14:30 Dose: Not Given Dextrose (Dextrose 50% Inj) 0 ml IV STAT PRN; Protocol PRN Reason: Hypoglycemia Protocol Dextrose (Glutose 15) 0 gm PO ONCE PRN; Protocol PRN Reason: Hypoglycemia Protocol Docusate Sodium (Colace) 100 mg PO DAILY [facility] Last Admin: 07/05/17 14:24 Dose: 100 mg Gabapentin (Neurontin) 100 mg PO HS [facility] Last Admin: 07/05/17 22:19 Dose: 100 mg Glucagon (Glucagen Diagnostic Kit) 0 mg IM STAT PRN; Protocol PRN Reason: Hypoglycemia Protocol Heparin Sodium (Porcine) (Heparin) 5,000 units SC Q12 [facility] Last Admin: 07/05/17 22:23 Dose: Not Given Home Med (Patient's Own Medication) 1 tab PO BID [facility] Last Admin: 07/05/17 18:29 Dose: 1 tab Hydralazine HCl (Apresoline) 25 mg PO QID [facility] Last Admin: 07/05/17 22:20 Dose: 25 mg Piperacillin Sod/Tazobactam Sod (Zosyn 2.25 Gm Iv Premix) 2.25 gm in 50 mls @ 100 mls/hr IVPB Q6H [facility] Last Admin: 07/06/17 04:28 Dose: 100 mls/hr Sodium Bicarbonate 50 ml/ (Sodium Chloride) 1,050 mls @ 100 mls/hr IV .[id number] [facility] Last Admin: 07/06/17 02:47 Dose: Not Given Insulin Glargine (Lantus) 35 unit SC HS [facility] Last Admin: 07/05/17 22:22 Dose: Not Given Insulin Human Regular (Novolin R) 0 unit SC ACHS [facility] PRN Reason: Protocol Last Admin: 07/05/17 22:22 Dose: Not Given Morphine Sulfate (Morphine) 2 mg IVP Q4 PRN PRN Reason: Pain, severe (8-10) Last Admin: 07/05/17 22:20 Dose: 2 mg Multivitamins (Hexavitamin) 1 tab PO DAILY [facility] Last Admin: 07/05/17 14:29 Dose: Not Given [id number]-[id number] Ethyl Esters (Lovaza) 1 gm PO BID [facility] Last Admin: 07/05/17 18:12 Dose: 1 gm Ondansetron HCl (Zofran Inj) 4 mg IVP Q4H PRN PRN Reason: Nausea/Vomiting Last Admin: 07/05/17 23:55 Dose: 4 mg Pantoprazole Sodium (Protonix Inj) 40 mg IVP DAILY [facility] Last Admin: 07/05/17 12:07 Dose: 40 mg Prednisone (Prednisone Tab) 5 mg PO DAILY [facility] Last Admin: 07/05/17 14:25 Dose: 5 mg Simethicone (Mylicon Chew Tab) 80 mg PO Q6H PRN PRN Reason: GI distress Last Admin: 07/05/17 13:40 Dose: 80 mg Tacrolimus (Prograf Cap) 4 mg PO BID [facility] Last Admin: 07/05/17 18:11 Dose: 4 mg - Labs Labs: 07/05/17 08:20 07/05/17 08:20 PT 12.3 SECONDS (9.7-12.2) H 07/03/17 07:37 INR 1.1 07/03/17 07:37 APTT 29 SECONDS (21-34) 07/02/17 09:28 - Constitutional Appears: Non-toxic, No Acute Distress - Head Exam Head Exam: ATRAUMATIC, NORMAL INSPECTION - Eye Exam Eye Exam: EOMI, Normal appearance - ENT Exam ENT Exam: Mucous Membranes Moist, Normal Oropharynx - Neck Exam Neck Exam: absent: Lymphadenopathy, Thyromegaly - Respiratory Exam Respiratory Exam: Clear to Ausculation Bilateral. absent: Rhonchi, Wheezes - Cardiovascular Exam Cardiovascular Exam: REGULAR RHYTHM, +S1, +S2. absent: Rubs - GI/Abdominal Exam GI & Abdominal Exam: Distended, Firm, Normal Bowel Sounds. absent: Tenderness - Extremities Exam Extremities Exam: absent: Joint Swelling, Pedal Edema - Neurological Exam Neurological Exam: Alert, Awake, Oriented x3 - Psychiatric Exam Psychiatric exam: Normal Affect, Normal Mood - Skin Skin Exam: Dry, Intact Assessment and Plan (1) Diabetes mellitus Status: Acute (2) Perforated appendicitis Status: Acute (3) Renal transplant recipient Status: Acute (4) Constipation Status: Acute (5) HTN (hypertension) Status: Acute - Assessment and Plan (Free Text) Assessment: Stable overnight Maintain IV bicarb, await follow up labs Maintain immunosuppression Daily labs Abx as ordered Pain management Surgical follow up noted
--- NOTE | 2017-07-06 07:25 | CP.PCM.PN ---
Subjective - Date & Time of Evaluation Date of Evaluation: 07/06/17 Time of Evaluation: 07:24 - Subjective Subjective: PGY-[address] Dubose's service: Pt seen and examined at bedside. Nursing reports no acute events overnight. Pt NPO for surgery this AM with Dr. Quevedo. Patient reports pain/distention improved since admission, especially with enema yesterday. He states enema produced large BM, and has been passing gas since. Pt reports needing the morphine last night because of "brief flash" of pain that has now resolved. He denies fever, chills, headaches, N/V. Objective - Vital Signs/Intake and Output Vital Signs (last 24 hours): Temp Pulse Resp BP Pulse Ox 97.9 F 73 20 165/96 H 97 07/05/17 23:55 07/05/17 23:55 07/05/17 23:55 07/05/17 23:55 07/05/17 23:55 Intake and Output: 07/06/17 07/06/17 06:59 18:59 Intake Total 1640 Output Total 300 Balance 1340 - Medications Medications: Current Medications Acetaminophen (Tylenol 325mg Tab) 975 mg PO Q8 PRN PRN Reason: Pain, moderate (4-7) Last Admin: 07/05/17 13:40 Dose: 975 mg Calcitriol (Rocaltrol) 0.25 mcg PO DAILY [facility] Last Admin: 07/05/17 14:30 Dose: Not Given Dextrose (Dextrose 50% Inj) 0 ml IV STAT PRN; Protocol PRN Reason: Hypoglycemia Protocol Dextrose (Glutose 15) 0 gm PO ONCE PRN; Protocol PRN Reason: Hypoglycemia Protocol Docusate Sodium (Colace) 100 mg PO DAILY [facility] Last Admin: 07/05/17 14:24 Dose: 100 mg Gabapentin (Neurontin) 100 mg PO HS [facility] Last Admin: 07/05/17 22:19 Dose: 100 mg Glucagon (Glucagen Diagnostic Kit) 0 mg IM STAT PRN; Protocol PRN Reason: Hypoglycemia Protocol Heparin Sodium (Porcine) (Heparin) 5,000 units SC Q12 [facility] Last Admin: 07/05/17 22:23 Dose: Not Given Home Med (Patient's Own Medication) 1 tab PO BID [facility] Last Admin: 07/05/17 18:29 Dose: 1 tab Hydralazine HCl (Apresoline) 25 mg PO QID [facility] Last Admin: 07/05/17 22:20 Dose: 25 mg Piperacillin Sod/Tazobactam Sod (Zosyn 2.25 Gm Iv Premix) 2.25 gm in 50 mls @ 100 mls/hr IVPB Q6H [facility] Last Admin: 07/06/17 04:28 Dose: 100 mls/hr Sodium Bicarbonate 50 ml/ (Sodium Chloride) 1,050 mls @ 100 mls/hr IV .[id number] [facility] Last Admin: 07/06/17 02:47 Dose: Not Given Insulin Glargine (Lantus) 35 unit SC HS [facility] Last Admin: 07/05/17 22:22 Dose: Not Given Insulin Human Regular (Novolin R) 0 unit SC ACHS [facility] PRN Reason: Protocol Last Admin: 07/05/17 22:22 Dose: Not Given Morphine Sulfate (Morphine) 2 mg IVP Q4 PRN PRN Reason: Pain, severe (8-10) Last Admin: 07/05/17 22:20 Dose: 2 mg Multivitamins (Hexavitamin) 1 tab PO DAILY [facility] Last Admin: 07/05/17 14:29 Dose: Not Given Auayb-1-Yonk Ethyl Esters (Lovaza) 1 gm PO BID [facility] Last Admin: 07/05/17 18:12 Dose: 1 gm Ondansetron HCl (Zofran Inj) 4 mg IVP Q4H PRN PRN Reason: Nausea/Vomiting Last Admin: 07/05/17 23:55 Dose: 4 mg Pantoprazole Sodium (Protonix Inj) 40 mg IVP DAILY [facility] Last Admin: 07/05/17 12:07 Dose: 40 mg Prednisone (Prednisone Tab) 5 mg PO DAILY [facility] Last Admin: 07/05/17 14:25 Dose: 5 mg Simethicone (Mylicon Chew Tab) 80 mg PO Q6H PRN PRN Reason: GI distress Last Admin: 07/05/17 13:40 Dose: 80 mg Tacrolimus (Prograf Cap) 4 mg PO BID [facility] Last Admin: 07/05/17 18:11 Dose: 4 mg - Labs Labs: 07/05/17 08:20 07/05/17 08:20 PT 12.3 SECONDS (9.7-12.2) H 07/03/17 07:37 INR 1.1 07/03/17 07:37 APTT 29 SECONDS (21-34) 07/02/17 09:28 - Additional Findings Additional findings: - Head Exam Head Exam: ATRAUMATIC, NORMOCEPHALIC - Eye Exam Eye Exam: EOMI, Normal appearance - ENT Exam ENT Exam: Mucous Membranes Moist - Respiratory Exam Respiratory Exam: Clear to Ausculation Bilateral, NORMAL BREATHING PATTERN. absent: Rales, Rhonchi, Wheezes, Respiratory Distress - Cardiovascular Exam Cardiovascular Exam: REGULAR RHYTHM, +S1, +S2 - GI/Abdominal Exam GI & Abdominal Exam: Soft, Tenderness (mild tenderness epigastric region), Distention, Firm, Normal Bowel Sounds, voluntary guarding - Extremities Exam Additional comments: chronic left UE and LE lymphedema. - Neurological Exam Neurological Exam: Alert, Awake, Oriented x3 - Skin Skin Exam: Dry, Intact, Normal Color, Warm Assessment and Plan - Assessment and Plan (Free Text) Plan: 1. Ruptured Appendicitis with Abscess * General Surgery consulted - Dr. Quevedo - help appreciated * Pt NPO for possible exploratory surgery this AM * IR was consulted for possible drainage, help appreciated * Per IR on 07/02/17, there is phlegmatous ( inflammatory) changes in the RLQ. There is no drainable fluid. Once a fluid collection develops, an percutaneous drainage catheter will be placed. * suggested repeat CT on 07/04/17 * Imaging: * CT Scan Abdomen and Pelvis (07/02): 1. Findings are consistent with acute ruptured appendicitis with a 4.2 cm collection/phlegmon at the tip. 2. 2.0 cm indeterminate lesion in the upper pole of the left kidney anteriorly could represent a complicated or hemorrhagic cyst. Neoplasm cannot be excluded. Please correlate with renal ultrasound. * CT Abd/Pelv (07/04): Findings suggest a phlegmon and/or early abscess of right lower quadrant of the abdomen which is poorly defined. The appendix is not seen with certainty. Rule out acute ruptured appendicitis. There is also small amount of free fluid within the right aspect of the pelvis. Findings also suggest mild constipation. Bilateral renal transplants. No change atrophic [place] kidneys or left renal cyst. There are areas of atelectasis both lung bases. Meds: * NS + Sodium bicarb 50ml @100cc/hr * Renally dosed Zosyn 2.25 gm Q6H * Morphine, Zofran PRN 2. History of Renal Transplant x 2 * Resume home Prograf 4 mg PO BID * Resume home Cellcept (brought in by patient) 180 mg PO BID * Resume home Prednisone 5 mg PO daily * Nephrology consult, Dr. Lorenzo, help appreciated 3. Renal Cyst * CT Scan Abdomen and Pelvis: 2.0 cm indeterminate lesion in the upper pole of the left kidney anteriorly could represent a complicated or hemorrhagic cyst. Neoplasm cannot be excluded. Please correlate with renal ultrasound. * Renal US shows 4.1 cm solid mass in the upper pole of the left [place] kidney * Outpatient follow up for mass once acute issues have resolved was recommended by nephrology 4. History of Hypertension * Resumed home medication Hydralazine 25 mg PO QID 5. History of Diabetes * Accuchecks * ISS - medium * home medication Lantus 35 units SC HS * home medication Gabapentin 100 mg PO HS * HGA1C 14.4 6. Hx HLD * Lipid panel: TG 176, Cholesterol 102, LDL 33, HDL 14 7. Constipation/gas * Enema * One dose of dulcolax MI and lactulose 20gm given on 07/05 * Colace 100mg PO daily * Simethicone 80mg PO Q6prn for GI distress/gas 8. Prophylactic Measures * GI PPX: Protonix 40mg IVP daily * DVT PPX: Heparin 5000 units SC Q12H, SCDs. * Renal Diet Disposition: Pt for potential explorartory surgery with Dr. Quevedo today. Discussed with Dr. Dubose
[2017-07-06 07:34] LABS: BASO % 0.3 % (0.0-2.0); EOS # 0.1 K/uL (0.0-0.7); EOS % 1.3 % (0.0-4.0); HEMOGLOBIN 12.4 g/dL (12.0-18.0); LYMPH # 0.7 K/uL (1.0-4.3); LYMPH % 8.7 % (20.0-40.0); MEAN CORPUSCULAR HEMOGLOBIN 29.1 pg (27.0-31.0); MEAN PLATELET VOLUME 9.2 fL (7.2-11.7); MONO # 0.7 K/uL (0.0-0.8); MONO % 8.7 % (0.0-10.0); NEUT # 6.1 K/uL (1.8-7.0); NRBC % 0.1 % (0.0-2.0); PLATELET COUNT 189 K/uL (130-400); RBC 4.25 Mil/uL (4.40-5.90); RED CELL DISTRIBUTION WIDTH 15.4 % (11.5-14.5); WHITE BLOOD COUNT 7.5 K/uL (4.8-10.8)
[2017-07-06 08:07] LABS: ALBUMIN 3.3 g/dL (3.5-5.0); CALCIUM 9.1 mg/dl (8.6-10.4); MAGNESIUM 1.8 mg/dL (1.6-2.3)
[2017-07-06] MEDS: Simethicone 80 mg Chewtab PO PRN ×2 (08:23→17:15)
[2017-07-06] MEDS: (Novolin R) Insulin Human Regular 100 units/ml vial SC SCH ×4 (08:30→22:48)
[2017-07-06] MEDS: MYCOPHENOLIC ACID 180 MG PO SCH ×2 (10:37→17:15)
[2017-07-06] MEDS: Omega-3-Acid Ethyl Esters 1 GM Cap PO SCH ×2 (10:38→17:16)
[2017-07-06] MEDS: Multiple Vitamins Tab PO SCH (10:38)
[2017-07-06 11:13] LABS: ANISOCYTOSIS SLIGHT; BANDS 1 % (0-2); EOSINOPHIL 2 % (0-4); HYPOCHROMIC SLIGHT; LYMPHOCYTE 8 % (20-40); MONOCYTE 6 % (0-10); NEUTROPHIL 83 % (50-75); PLATELET ESTIMATE NORMAL (NORMAL); POLYCHROMIC SLIGHT; TOTAL CELLS COUNTED 100
[2017-07-06 11:14] LABS: LARGE PLATELETS PRESENT; TOXIC GRANULATION PRESENT
--- NOTE | 2017-07-06 11:32 | CP.PCM.PN ---
Subjective - Date & Time of Evaluation Date of Evaluation: 07/06/17 Time of Evaluation: 11:32 - Subjective Subjective: abdomen less distended, pain gone wbc normal po diet dc morphine Objective - Vital Signs/Intake and Output Vital Signs (last 24 hours): Temp Pulse Resp BP Pulse Ox 97.9 F 76 20 172/88 H 98 07/06/17 07:00 07/06/17 10:36 07/06/17 07:00 07/06/17 10:36 07/06/17 07:00 Intake and Output: 07/06/17 07/06/17 06:59 18:59 Intake Total 1640 Output Total 300 Balance 1340 - Medications Medications: Current Medications Acetaminophen (Tylenol 325mg Tab) 975 mg PO Q8 PRN PRN Reason: Pain, moderate (4-7) Last Admin: 07/05/17 13:40 Dose: 975 mg Calcitriol (Rocaltrol) 0.25 mcg PO DAILY [facility] Last Admin: 07/06/17 10:38 Dose: 0.25 mcg Dextrose (Dextrose 50% Inj) 0 ml IV STAT PRN; Protocol PRN Reason: Hypoglycemia Protocol Dextrose (Glutose 15) 0 gm PO ONCE PRN; Protocol PRN Reason: Hypoglycemia Protocol Docusate Sodium (Colace) 100 mg PO DAILY [facility] Last Admin: 07/06/17 10:38 Dose: 100 mg Gabapentin (Neurontin) 100 mg PO HS [facility] Last Admin: 07/05/17 22:19 Dose: 100 mg Glucagon (Glucagen Diagnostic Kit) 0 mg IM STAT PRN; Protocol PRN Reason: Hypoglycemia Protocol Heparin Sodium (Porcine) (Heparin) 5,000 units SC Q12 [facility] Last Admin: 07/06/17 10:37 Dose: Not Given Home Med (Patient's Own Medication) 1 tab PO BID [facility] Last Admin: 07/06/17 10:37 Dose: 1 tab Hydralazine HCl (Apresoline) 25 mg PO QID [facility] Last Admin: 07/06/17 10:38 Dose: 25 mg Piperacillin Sod/Tazobactam Sod (Zosyn 2.25 Gm Iv Premix) 2.25 gm in 50 mls @ 100 mls/hr IVPB Q6H [facility] Last Admin: 07/06/17 10:43 Dose: 100 mls/hr Sodium Bicarbonate 50 ml/ (Sodium Chloride) 1,050 mls @ 100 mls/hr IV .[id number] [facility] Last Admin: 07/06/17 10:43 Dose: 100 mls/hr Insulin Glargine (Lantus) 35 unit SC HS [facility] Last Admin: 07/05/17 22:22 Dose: Not Given Insulin Human Regular (Novolin R) 0 unit SC ACHS [facility] PRN Reason: Protocol Last Admin: 07/05/17 22:22 Dose: Not Given Morphine Sulfate (Morphine) 2 mg IVP Q4 PRN PRN Reason: Pain, severe (8-10) Last Admin: 07/05/17 22:20 Dose: 2 mg Multivitamins (Hexavitamin) 1 tab PO DAILY [facility] Last Admin: 07/06/17 10:38 Dose: 1 tab Iwvpe-4-Zcva Ethyl Esters (Lovaza) 1 gm PO BID [facility] Last Admin: 07/06/17 10:38 Dose: 1 gm Ondansetron HCl (Zofran Inj) 4 mg IVP Q4H PRN PRN Reason: Nausea/Vomiting Last Admin: 07/05/17 23:55 Dose: 4 mg Pantoprazole Sodium (Protonix Inj) 40 mg IVP DAILY [facility] Last Admin: 07/06/17 10:43 Dose: 40 mg Prednisone (Prednisone Tab) 5 mg PO DAILY [facility] Last Admin: 07/06/17 10:38 Dose: 5 mg Simethicone (Mylicon Chew Tab) 80 mg PO Q6H PRN PRN Reason: GI distress Last Admin: 07/06/17 08:23 Dose: 80 mg Tacrolimus (Prograf Cap) 4 mg PO BID [facility] Last Admin: 07/06/17 10:38 Dose: 4 mg - Labs Labs: 07/06/17 07:24 07/06/17 07:24 PT 12.3 SECONDS (9.7-12.2) H 07/03/17 07:37 INR 1.1 07/03/17 07:37 APTT 29 SECONDS (21-34) 07/02/17 09:28
[2017-07-06] MEDS: Morphine 4 MG/ML VIAL IVP PRN (19:49)
[2017-07-06] MEDS: (Lantus) Insulin Glargine, Recombinant SC SCH (22:43)
[2017-07-07] MEDS: Piperacill/Tazo 2.25gm in Dex 2.25 GM/50 ML BAG IVPB SCH ×5 (00:12→22:21)
[2017-07-07] MEDS: POLYETHYLENE GLYCOL 3350 17 GM/Dose PACKET PO SCH ×4 (01:55→23:56)
--- NOTE | 2017-07-07 07:36 | CP.PCM.PN ---
Subjective - Date & Time of Evaluation Date of Evaluation: 07/07/17 Time of Evaluation: 07:33 - Subjective Subjective: PGY-[address] Dubose's service: Pt seen and examined at bedside. Nursing reports patient refused Miralax this AM. He denies BM or passing gas since yesterday. He states he had "bad sharp pain" in his LLQ pain he felt last night, but passed after given codeine by overnight resident. He states he has been tolerating light diet. He denies subjective fevers, chills, chest pain, SOB, or episodes of nausea/vomiting. Objective - Vital Signs/Intake and Output Vital Signs (last 24 hours): Temp Pulse Resp BP Pulse Ox 97.7 F 72 20 157/90 H 97 07/07/17 04:45 07/07/17 04:45 07/07/17 04:45 07/07/17 04:45 07/07/17 04:45 Intake and Output: 07/07/17 07/07/17 06:59 18:59 Intake Total 290 Output Total 625 Balance -335 - Medications Medications: Current Medications Acetaminophen (Tylenol 325mg Tab) 975 mg PO Q8 PRN PRN Reason: Pain, moderate (4-7) Last Admin: 07/05/17 13:40 Dose: 975 mg Calcitriol (Rocaltrol) 0.25 mcg PO DAILY [facility] Last Admin: 07/06/17 10:38 Dose: 0.25 mcg Dextrose (Dextrose 50% Inj) 0 ml IV STAT PRN; Protocol PRN Reason: Hypoglycemia Protocol Dextrose (Glutose 15) 0 gm PO ONCE PRN; Protocol PRN Reason: Hypoglycemia Protocol Docusate Sodium (Colace) 100 mg PO DAILY [facility] Last Admin: 07/06/17 10:38 Dose: 100 mg Gabapentin (Neurontin) 100 mg PO HS [facility] Last Admin: 07/06/17 22:42 Dose: 100 mg Glucagon (Glucagen Diagnostic Kit) 0 mg IM STAT PRN; Protocol PRN Reason: Hypoglycemia Protocol Heparin Sodium (Porcine) (Heparin) 5,000 units SC Q12 [facility] Last Admin: 07/06/17 22:45 Dose: Not Given Home Med (Patient's Own Medication) 1 tab PO BID [facility] Last Admin: 07/06/17 17:15 Dose: 1 tab Hydralazine HCl (Apresoline) 25 mg PO QID [facility] Last Admin: 07/06/17 22:42 Dose: 25 mg Piperacillin Sod/Tazobactam Sod (Zosyn 2.25 Gm Iv Premix) 2.25 gm in 50 mls @ 100 mls/hr IVPB Q6H [facility] Last Admin: 07/07/17 05:57 Dose: 100 mls/hr Sodium Bicarbonate 50 meq/ (Sodium Chloride) 1,050 mls @ 10 mls/hr IV .Q24H [facility] Last Admin: 07/06/17 18:45 Dose: Not Given Insulin Glargine (Lantus) 35 unit SC HS [facility] Last Admin: 07/06/17 22:43 Dose: 35 units Insulin Human Regular (Novolin R) 0 unit SC ACHS [facility] PRN Reason: Protocol Last Admin: 07/06/17 22:48 Dose: Not Given Magnesium Citrate (Citrate Of Mag) 300 ml PO ONCE ONE Stop: 07/07/17 07:09 Multivitamins (Hexavitamin) 1 tab PO DAILY [facility] Last Admin: 07/06/17 10:38 Dose: 1 tab Bsmrf-5-Yijd Ethyl Esters (Lovaza) 1 gm PO BID [facility] Last Admin: 07/06/17 17:16 Dose: 1 gm Ondansetron HCl (Zofran Inj) 4 mg IVP Q4H PRN PRN Reason: Nausea/Vomiting Last Admin: 07/05/17 23:55 Dose: 4 mg Pantoprazole Sodium (Protonix Inj) 40 mg IVP DAILY [facility] Last Admin: 07/06/17 10:43 Dose: 40 mg Polyethylene Glycol (Miralax) 17 gm PO Q12H [facility] Last Admin: 07/07/17 01:55 Dose: Not Given Prednisone (Prednisone Tab) 5 mg PO DAILY [facility] Last Admin: 07/06/17 10:38 Dose: 5 mg Simethicone (Mylicon Chew Tab) 80 mg PO Q6H PRN PRN Reason: GI distress Last Admin: 07/06/17 17:15 Dose: 80 mg Tacrolimus (Prograf Cap) 4 mg PO BID [facility] Last Admin: 07/06/17 17:16 Dose: 4 mg - Labs Labs: 07/06/17 07:24 07/06/17 07:24 PT 12.3 SECONDS (9.7-12.2) H 07/03/17 07:37 INR 1.1 01/24/18 07:37 APTT 29 SECONDS (21-34) 07/02/17 09:28 - Additional Findings Additional findings: - Head Exam Head Exam: ATRAUMATIC, NORMOCEPHALIC - Eye Exam Eye Exam: EOMI, Normal appearance - ENT Exam ENT Exam: Mucous Membranes Moist - Respiratory Exam Respiratory Exam: Clear to Ausculation Bilateral, NORMAL BREATHING PATTERN. absent: Rales, Rhonchi, Wheezes, Respiratory Distress - Cardiovascular Exam Cardiovascular Exam: REGULAR RHYTHM, +S1, +S2 - GI/Abdominal Exam GI & Abdominal Exam: Soft, Tenderness (mild tenderness epigastric region), Distention, Firm, Normal Bowel Sounds, voluntary guarding - Extremities Exam Additional comments: chronic left UE and LE lymphedema. - Neurological Exam Neurological Exam: Alert, Awake, Oriented x3 - Skin Skin Exam: Dry, Intact, Normal Color, Warm Assessment and Plan - Assessment and Plan (Free Text) Plan: 1. Ruptured Appendicitis with Abscess * General Surgery consulted - Dr. Quevedo - help appreciated * No surg intervention at this time * IR was consulted for possible drainage, help appreciated * Per IR on 07/02/17, there is phlegmatous ( inflammatory) changes in the RLQ. There is no drainable fluid. Once a fluid collection develops, an percutaneous drainage catheter will be placed. * suggested repeat CT on 07/04/17 * Imaging: * CT Scan Abdomen and Pelvis (07/02): 1. Findings are consistent with acute ruptured appendicitis with a 4.2 cm collection/phlegmon at the tip. 2. 2.0 cm indeterminate lesion in the upper pole of the left kidney anteriorly could represent a complicated or hemorrhagic cyst. Neoplasm cannot be excluded. Please correlate with renal ultrasound. * CT Abd/Pelv (07/04): Findings suggest a phlegmon and/or early abscess of right lower quadrant of the abdomen which is poorly defined. The appendix is not seen with certainty. Rule out acute ruptured appendicitis. There is also small amount of free fluid within the right aspect of the pelvis. Findings also suggest mild constipation. Bilateral renal transplants. No change atrophic [place] kidneys or left renal cyst. There are areas of atelectasis both lung bases. Meds: * NS + Sodium bicarb 50ml @100cc/hr * Renally dosed Zosyn 2.25 gm Q6H 2. Constipation/gas * 07/07: Repeat fleet enema, Magnesium citrate * XR ABD (07/07/17): moderate to severe fecal retention. Few distended loops of bowel in left singh-abdomen (see full report) * One dose of dulcolax OH and lactulose 20gm given on 07/07 * Colace 100mg PO daily * Simethicone 80mg PO Q6prn for GI distress/gas 3. History of Renal Transplant x 2 * Resume home Prograf 4 mg PO BID * Resume home Cellcept (brought in by patient) 180 mg PO BID * Resume home Prednisone 5 mg PO daily * Nephrology consult, Dr. Lorenzo, help appreciated 4. Renal Cyst * CT Scan Abdomen and Pelvis: 2.0 cm indeterminate lesion in the upper pole of the left kidney anteriorly could represent a complicated or hemorrhagic cyst. Neoplasm cannot be excluded. Please correlate with renal ultrasound. * Renal US shows 4.1 cm solid mass in the upper pole of the left [place] kidney * Outpatient follow up for mass once acute issues have resolved was recommended by nephrology 5. History of Hypertension * Resumed home medication Hydralazine 25 mg PO QID 6. History of Diabetes * Accuchecks * ISS - medium * home medication Lantus 40 units SC HS * home medication Gabapentin 100 mg PO HS * HGA1C 14.4 * hyperglycemia protocol 7. Hx HLD * Lipid panel: TG 176, Cholesterol 102, LDL 33, HDL 14 * Lovaza 1gm BID for low HDL 8. Prophylactic Measures * GI PPX: Protonix 40mg IVP daily * DVT PPX: Heparin 5000 units SC Q12H, [facility]CD[facility]. * Renal Diet Discussed with Dr. Dubose
[2017-07-07 07:56] LABS: BASO # 0.1 K/uL (0.0-0.2); BASO % 0.9 % (0.0-2.0); EOS # 0.1 K/uL (0.0-0.7); EOS % 1.2 % (0.0-4.0); HEMOGLOBIN 12.3 g/dL (12.0-18.0); LYMPH # 0.6 K/uL (1.0-4.3); LYMPH % 8.9 % (20.0-40.0); MEAN CORPUSCULAR HEMOGLOBIN 27.9 pg (27.0-31.0); MEAN CORPUSCULAR HGB CONC 33.2 g/dL (33.0-37.0); MEAN PLATELET VOLUME 8.7 fL (7.2-11.7); MONO # 0.6 K/uL (0.0-0.8); MONO % 9.2 % (0.0-10.0); NEUT # 5.4 K/uL (1.8-7.0); NEUT % 79.8 % (50.0-75.0); NRBC % 0.1 % (0.0-2.0); PLATELET COUNT 198 K/uL (130-400); RBC 4.41 Mil/uL (4.40-5.90); WHITE BLOOD COUNT 6.8 K/uL (4.8-10.8)
[2017-07-07] MEDS ORDERED: Magnesium Citrate Oral SOL (300 ml) PO ONE (08:15)
[2017-07-07 08:21] LABS: ALBUMIN 3.5 g/dL (3.5-5.0); CALCIUM 8.9 mg/dl (8.6-10.4)
[2017-07-07] MEDS: (Novolin R) Insulin Human Regular 100 units/ml vial SC SCH ×4 (08:40→22:13)
[2017-07-07] MEDS: Simethicone 80 mg Chewtab PO PRN ×2 (08:52→22:49)
--- NOTE | 2017-07-07 09:02 | CP.PCM.PN ---
Subjective - Date & Time of Evaluation Date of Evaluation: 07/07/17 Time of Evaluation: 08:59 - Subjective Subjective: General Surgery Progress Note For Dr. Quevedo This 51M was seen and examined this AM at Bedside no acute events over night. He reports last gas and BM yesterday. Per nurse he refused Miralax as ordered. He denies fevers chills chest pain SOB nausea vomiting. Objective - Vital Signs/Intake and Output Vital Signs (last 24 hours): Temp Pulse Resp BP Pulse Ox 97.8 F 74 18 158/93 H 97 07/07/17 08:46 07/07/17 08:46 07/07/17 08:46 07/07/17 08:46 07/07/17 08:46 Intake and Output: 07/07/17 07/07/17 06:59 18:59 Intake Total 290 Output Total 625 Balance -335 - Medications Medications: Current Medications Acetaminophen (Tylenol 325mg Tab) 975 mg PO Q8 PRN PRN Reason: Pain, moderate (4-7) Last Admin: 07/05/17 13:40 Dose: 975 mg Calcitriol (Rocaltrol) 0.25 mcg PO DAILY [facility] Last Admin: 07/06/17 10:38 Dose: 0.25 mcg Dextrose (Dextrose 50% Inj) 0 ml IV STAT PRN; Protocol PRN Reason: Hypoglycemia Protocol Dextrose (Glutose 15) 0 gm PO ONCE PRN; Protocol PRN Reason: Hypoglycemia Protocol Docusate Sodium (Colace) 100 mg PO DAILY [facility] Last Admin: 07/06/17 10:38 Dose: 100 mg Gabapentin (Neurontin) 100 mg PO HS [facility] Last Admin: 07/06/17 22:42 Dose: 100 mg Glucagon (Glucagen Diagnostic Kit) 0 mg IM STAT PRN; Protocol PRN Reason: Hypoglycemia Protocol Heparin Sodium (Porcine) (Heparin) 5,000 units SC Q12 [facility] Last Admin: 07/06/17 22:45 Dose: Not Given Home Med (Patient's Own Medication) 1 tab PO BID [facility] Last Admin: 07/06/17 17:15 Dose: 1 tab Hydralazine HCl (Apresoline) 25 mg PO QID [facility] Last Admin: 07/06/17 22:42 Dose: 25 mg Piperacillin Sod/Tazobactam Sod (Zosyn 2.25 Gm Iv Premix) 2.25 gm in 50 mls @ 100 mls/hr IVPB Q6H [facility] Last Admin: 07/07/17 05:57 Dose: 100 mls/hr Sodium Bicarbonate 50 meq/ (Sodium Chloride) 1,050 mls @ 10 mls/hr IV .Q24H [facility] Last Admin: 07/06/17 18:45 Dose: Not Given Insulin Glargine (Lantus) 40 unit SC HS [facility] Insulin Human Regular (Novolin R) 0 unit SC ACHS [facility] PRN Reason: Protocol Last Admin: 07/07/17 08:40 Dose: 3 unit Multivitamins (Hexavitamin) 1 tab PO DAILY [facility] Last Admin: 07/06/17 10:38 Dose: 1 tab [id number]-[id number] Ethyl Esters (Lovaza) 1 gm PO BID [facility] Last Admin: 07/06/17 17:16 Dose: 1 gm Ondansetron HCl (Zofran Inj) 4 mg IVP Q4H PRN PRN Reason: Nausea/Vomiting Last Admin: 07/05/17 23:55 Dose: 4 mg Pantoprazole Sodium (Protonix Inj) 40 mg IVP DAILY [facility] Last Admin: 07/06/17 10:43 Dose: 40 mg Polyethylene Glycol (Miralax) 17 gm PO Q12H [facility] Last Admin: 07/07/17 01:55 Dose: Not Given Prednisone (Prednisone Tab) 5 mg PO DAILY [facility] Last Admin: 07/06/17 10:38 Dose: 5 mg Simethicone (Mylicon Chew Tab) 80 mg PO Q6H PRN PRN Reason: GI distress Last Admin: 07/07/17 08:52 Dose: 80 mg Tacrolimus (Prograf Cap) 4 mg PO BID [facility] Last Admin: 07/06/17 17:16 Dose: 4 mg - Labs Labs: 07/07/17 07:45 07/07/17 07:45 PT 12.3 SECONDS (9.7-12.2) H 07/03/17 07:37 INR 1.1 07/03/17 07:37 APTT 29 SECONDS (21-34) 07/02/17 09:28 - Constitutional Appears: Non-toxic, No Acute Distress - Head Exam Head Exam: ATRAUMATIC, NORMOCEPHALIC - Eye Exam Eye Exam: EOMI - ENT Exam ENT Exam: Mucous Membranes Moist - Respiratory Exam Respiratory Exam: NORMAL BREATHING PATTERN - Cardiovascular Exam Cardiovascular Exam: +S1, +S2 - GI/Abdominal Exam GI & Abdominal Exam: Distended, Soft. absent: Guarding, Rigid, Tenderness - Neurological Exam Neurological Exam: Alert, Awake - Psychiatric Exam Psychiatric exam: Normal Affect, Normal Mood - Skin Skin Exam: Dry, Intact Assessment and Plan - Assessment and Plan (Free Text) Assessment: 51M with ruptured appy No surgical managment at this time ABX Regular Diet Magcitrate possibly repeat enema. D/W Dr. Sae Mueller PGY2
[2017-07-07 09:49] LABS: BANDS 1 % (0-2); BASOPHIL 1 % (0-2); EOSINOPHIL 1 % (0-4); LYMPHOCYTE 8 % (20-40); MONOCYTE 10 % (0-10); NEUTROPHIL 79 % (50-75); PLATELET ESTIMATE NORMAL (NORMAL); TOTAL CELLS COUNTED 100
[2017-07-07 09:50] LABS: ANISOCYTOSIS SLIGHT; POLYCHROMIC SLIGHT; TOXIC GRANULATION PRESENT
[2017-07-07] MEDS: MYCOPHENOLIC ACID 180 MG PO SCH ×2 (10:46→18:25)
[2017-07-07] MEDS: Multiple Vitamins Tab PO SCH (10:47)
[2017-07-07] MEDS: Omega-3-Acid Ethyl Esters 1 GM Cap PO SCH ×2 (10:47→18:25)
--- NOTE | 2017-07-07 12:58 | RAD ---
Abdomen single frontal view History: Constipation. Comparison: None available. Findings: Moderate to severe fecal retention in the colon. Few distended loops of small bowel seen within the left abdomen. Degenerative changes in the spine. Impression: Moderate to severe fecal retention in the colon. Few distended loops of small bowel in the left singh abdomen
--- NOTE | 2017-07-07 14:48 | CP.PCM.PN ---
Subjective - Date & Time of Evaluation Date of Evaluation: 07/07/17 Time of Evaluation: 14:47 - Subjective Subjective: still with impaction additional rx ordered Objective - Vital Signs/Intake and Output Vital Signs (last 24 hours): Temp Pulse Resp BP Pulse Ox 97.8 F 74 18 132/84 97 07/07/17 08:46 07/07/17 14:39 07/07/17 08:46 07/07/17 14:39 07/07/17 08:46 Intake and Output: 07/07/17 07/07/17 06:59 18:59 Intake Total 290 Output Total 625 Balance -335 - Medications Medications: Current Medications Acetaminophen (Tylenol 325mg Tab) 975 mg PO Q8 PRN PRN Reason: Pain, moderate (4-7) Last Admin: 07/07/17 14:39 Dose: 975 mg Calcitriol (Rocaltrol) 0.25 mcg PO DAILY [facility] Last Admin: 07/07/17 10:47 Dose: 0.25 mcg Dextrose (Dextrose 50% Inj) 0 ml IV STAT PRN; Protocol PRN Reason: Hypoglycemia Protocol Dextrose (Glutose 15) 0 gm PO ONCE PRN; Protocol PRN Reason: Hypoglycemia Protocol Docusate Sodium (Colace) 100 mg PO DAILY [facility] Last Admin: 07/07/17 10:47 Dose: 100 mg Gabapentin (Neurontin) 100 mg PO HS [facility] Last Admin: 07/06/17 22:42 Dose: 100 mg Glucagon (Glucagen Diagnostic Kit) 0 mg IM STAT PRN; Protocol PRN Reason: Hypoglycemia Protocol Heparin Sodium (Porcine) (Heparin) 5,000 units SC Q12 [facility] Last Admin: 07/07/17 10:51 Dose: 5,000 units Home Med (Patient's Own Medication) 1 tab PO BID [facility] Last Admin: 07/07/17 10:46 Dose: 1 tab Hydralazine HCl (Apresoline) 25 mg PO QID [facility] Last Admin: 07/07/17 14:39 Dose: 25 mg Piperacillin Sod/Tazobactam Sod (Zosyn 2.25 Gm Iv Premix) 2.25 gm in 50 mls @ 100 mls/hr IVPB Q6H [facility] Last Admin: 07/07/17 10:46 Dose: 100 mls/hr Sodium Bicarbonate 50 meq/ (Sodium Chloride) 1,050 mls @ 10 mls/hr IV .Q24H [facility] Last Admin: 07/06/17 18:45 Dose: Not Given Insulin Glargine (Lantus) 40 unit SC HS [facility] Insulin Human Regular (Novolin R) 0 unit SC ACHS [facility] PRN Reason: Protocol Last Admin: 07/07/17 12:38 Dose: 3 unit Multivitamins (Hexavitamin) 1 tab PO DAILY [facility] Last Admin: 07/07/17 10:47 Dose: 1 tab Klvvs-4-Tpye Ethyl Esters (Lovaza) 1 gm PO BID [facility] Last Admin: 07/07/17 10:47 Dose: 1 gm Ondansetron HCl (Zofran Inj) 4 mg IVP Q4H PRN PRN Reason: Nausea/Vomiting Last Admin: 07/05/17 23:55 Dose: 4 mg Pantoprazole Sodium (Protonix Inj) 40 mg IVP DAILY [facility] Last Admin: 07/07/17 11:30 Dose: 40 mg Polyethylene Glycol (Miralax) 17 gm PO Q12H [facility] Last Admin: 07/07/17 12:39 Dose: Not Given Prednisone (Prednisone Tab) 5 mg PO DAILY [facility] Last Admin: 07/07/17 10:47 Dose: 5 mg Simethicone (Mylicon Chew Tab) 80 mg PO Q6H PRN PRN Reason: GI distress Last Admin: 07/07/17 08:52 Dose: 80 mg Tacrolimus (Prograf Cap) 4 mg PO BID [facility] Last Admin: 07/07/17 10:47 Dose: 4 mg - Labs Labs: 07/07/17 07:45 07/07/17 07:45 PT 12.3 SECONDS (9.7-12.2) H 07/03/17 07:37 INR 1.1 07/03/17 07:37 APTT 29 SECONDS (21-34) 07/02/17 09:28
[2017-07-07] MEDS ORDERED: Mineral Oil Enema 135 ml RC ONE (14:51)
[2017-07-07] MEDS: (Lantus) Insulin Glargine, Recombinant SC SCH (22:17)
[2017-07-07] MEDS ORDERED: Magnesium Hydroxide Susp 30 ml UD PO ONE (23:19)
[2017-07-08] MEDS ORDERED: Mineral Oil Enema 135 ml RC ONE (01:04)
[2017-07-08] MEDS: Piperacill/Tazo 2.25gm in Dex 2.25 GM/50 ML BAG IVPB SCH ×4 (05:26→23:52)
[2017-07-08 07:18] LABS: BASO % 0.4 % (0.0-2.0); EOS # 0.1 K/uL (0.0-0.7); EOS % 1.1 % (0.0-4.0); HEMOGLOBIN 13.2 g/dL (12.0-18.0); LYMPH # 0.6 K/uL (1.0-4.3); LYMPH % 9.4 % (20.0-40.0); MEAN CELL VOLUME 82.9 fL (80.0-94.0); MEAN CORPUSCULAR HGB CONC 33.7 g/dL (33.0-37.0); MEAN PLATELET VOLUME 9.1 fL (7.2-11.7); MONO # 0.7 K/uL (0.0-0.8); MONO % 9.6 % (0.0-10.0); NEUT # 5.4 K/uL (1.8-7.0); NEUT % 79.5 % (50.0-75.0); NRBC % 0.1 % (0.0-2.0); PLATELET COUNT 239 K/uL (130-400); RBC 4.71 Mil/uL (4.40-5.90); RED CELL DISTRIBUTION WIDTH 15.7 % (11.5-14.5); WHITE BLOOD COUNT 6.8 K/uL (4.8-10.8)
[2017-07-08 08:32] LABS: ALB/GLOB RATIO 1.2 (1.0-2.1); ALBUMIN 3.8 g/dL (3.5-5.0)
[2017-07-08] MEDS: (Novolin R) Insulin Human Regular 100 units/ml vial SC SCH ×3 (08:47→17:37)
[2017-07-08] MEDS: MYCOPHENOLIC ACID 180 MG PO SCH ×2 (09:45→17:38)
[2017-07-08] MEDS: Multiple Vitamins Tab PO SCH (09:46)
[2017-07-08] MEDS: Omega-3-Acid Ethyl Esters 1 GM Cap PO SCH ×2 (09:46→17:38)
[2017-07-08] MEDS: Pantoprazole 40 mg EC Tab PO SCH (09:47)
[2017-07-08 09:53] LABS: BANDS 1 % (0-2); EOSINOPHIL 2 % (0-4); LYMPHOCYTE 9 % (20-40); MONOCYTE 6 % (0-10); NEUTROPHIL 82 % (50-75); PLATELET ESTIMATE NORMAL (NORMAL); TOTAL CELLS COUNTED 100
[2017-07-08 09:54] LABS: ANISOCYTOSIS SLIGHT
--- NOTE | 2017-07-08 10:56 | CP.PCM.PN ---
Subjective - Date & Time of Evaluation Date of Evaluation: 07/08/17 Time of Evaluation: 10:53 - Subjective Subjective: general Surgery Progress Note for Dr. Quevedo This pt was seen and examined this AM at midnight, no acute events overnight. complains of worsening abd pain and distention. Reports no BM since saturday. Later in the AM patient had large volume bilious emesis, refused NGT requesting to drink his tea. Objective - Vital Signs/Intake and Output Vital Signs (last 24 hours): Temp Pulse Resp BP Pulse Ox 97.4 F L 88 18 149/86 96 07/08/17 08:30 07/08/17 09:48 07/08/17 08:30 07/08/17 09:48 07/08/17 08:30 Intake and Output: 07/08/17 07/08/17 06:59 18:59 Intake Total 1420 Output Total 1400 Balance 20 - Medications Medications: Current Medications Acetaminophen (Tylenol 325mg Tab) 975 mg PO Q8 PRN PRN Reason: Pain, moderate (4-7) Last Admin: 07/07/17 22:06 Dose: 975 mg Calcitriol (Rocaltrol) 0.25 mcg PO DAILY [facility] Last Admin: 07/08/17 09:47 Dose: 0.25 mcg Dextrose (Dextrose 50% Inj) 0 ml IV STAT PRN; Protocol PRN Reason: Hypoglycemia Protocol Dextrose (Glutose 15) 0 gm PO ONCE PRN; Protocol PRN Reason: Hypoglycemia Protocol Docusate Sodium (Colace) 100 mg PO DAILY [facility] Last Admin: 07/08/17 09:46 Dose: 100 mg Gabapentin (Neurontin) 100 mg PO HS [facility] Last Admin: 07/07/17 22:05 Dose: 100 mg Glucagon (Glucagen Diagnostic Kit) 0 mg IM STAT PRN; Protocol PRN Reason: Hypoglycemia Protocol Heparin Sodium (Porcine) (Heparin) 5,000 units SC Q12 [facility] Last Admin: 07/08/17 09:47 Dose: 5,000 units Home Med (Patient's Own Medication) 1 tab PO BID [facility] Last Admin: 07/08/17 09:45 Dose: 1 tab Hydralazine HCl (Apresoline) 25 mg PO QID [facility] Last Admin: 07/08/17 09:47 Dose: 25 mg Piperacillin Sod/Tazobactam Sod (Zosyn 2.25 Gm Iv Premix) 2.25 gm in 50 mls @ 100 mls/hr IVPB Q6H [facility] Last Admin: 07/08/17 05:26 Dose: 100 mls/hr Sodium Bicarbonate 50 meq/ (Sodium Chloride) 1,050 mls @ 10 mls/hr IV .Q24H [facility] Last Admin: 07/07/17 18:43 Dose: Not Given Insulin Glargine (Lantus) 40 unit SC HS [facility] Last Admin: 07/07/17 22:17 Dose: 40 unit Insulin Human Regular (Novolin R) 0 unit SC ACHS [facility] PRN Reason: Protocol Last Admin: 07/08/17 08:47 Dose: Not Given Multivitamins (Hexavitamin) 1 tab PO DAILY [facility] Last Admin: 07/08/17 09:46 Dose: 1 tab Sjdvz-6-Gpos Ethyl Esters (Lovaza) 1 gm PO BID [facility] Last Admin: 07/08/17 09:46 Dose: 1 gm Ondansetron HCl (Zofran Inj) 4 mg IVP Q4H PRN PRN Reason: Nausea/Vomiting Last Admin: 07/07/17 22:44 Dose: 4 mg Pantoprazole Sodium (Protonix Ec Tab) 40 mg PO DAILY [facility] Last Admin: 07/08/17 09:47 Dose: 40 mg Polyethylene Glycol (Miralax) 17 gm PO Q12H [facility] Last Admin: 07/07/17 23:56 Dose: 17 gm Prednisone (Prednisone Tab) 5 mg PO DAILY [facility] Last Admin: 07/08/17 09:46 Dose: 5 mg Simethicone (Mylicon Chew Tab) 80 mg PO Q6H PRN PRN Reason: GI distress Last Admin: 07/07/17 22:49 Dose: 80 mg Tacrolimus (Prograf Cap) 4 mg PO BID [facility] Last Admin: 07/08/17 09:56 Dose: 4 mg - Labs Labs: 07/08/17 06:47 07/08/17 06:47 PT 12.3 SECONDS (9.7-12.2) H 07/03/17 07:37 INR 1.1 07/03/17 07:37 APTT 29 SECONDS (21-34) 07/02/17 09:28 - Constitutional Appears: Non-toxic - Head Exam Head Exam: ATRAUMATIC, NORMOCEPHALIC - Eye Exam Eye Exam: EOMI - ENT Exam ENT Exam: Mucous Membranes Moist - Respiratory Exam Respiratory Exam: NORMAL BREATHING PATTERN - Cardiovascular Exam Cardiovascular Exam: REGULAR RHYTHM - GI/Abdominal Exam GI & Abdominal Exam: Distended. absent: Firm, Guarding, Rigid Additional comments: Mildly tender non peritoneal - Neurological Exam Neurological Exam: Alert, Awake - Psychiatric Exam Psychiatric exam: Normal Affect, Normal Mood - Skin Skin Exam: Dry, Intact Assessment and Plan - Assessment and Plan (Free Text) Assessment: 51 Male with ruptured appendicitis and ileus Oil retention enema NPO currently refusing NGT will consider OR if pt fails to show signs of improvement. D/W Dr. Sae Mueller PGY2
[2017-07-08] MEDS: POLYETHYLENE GLYCOL 3350 17 GM/Dose PACKET PO SCH (12:19)
--- NOTE | 2017-07-08 12:51 | CP.PCM.PN ---
Subjective - Date & Time of Evaluation Date of Evaluation: 07/08/17 Time of Evaluation: 12:48 - Subjective Subjective: still with abdominal pains c/o nausea as well- refused NGT; will accept now creat increased to 2.3 has been afebrile FK levels acceptable UO- adequate Objective - Vital Signs/Intake and Output Vital Signs (last 24 hours): Temp Pulse Resp BP Pulse Ox 97.4 F L 88 18 149/86 96 07/08/17 08:30 07/08/17 09:48 07/08/17 08:30 07/08/17 09:48 07/08/17 08:30 Intake and Output: 07/08/17 07/08/17 06:59 18:59 Intake Total 1420 Output Total 1400 Balance 20 - Medications Medications: Current Medications Acetaminophen (Tylenol 325mg Tab) 975 mg PO Q8 PRN PRN Reason: Pain, moderate (4-7) Last Admin: 07/07/17 22:06 Dose: 975 mg Calcitriol (Rocaltrol) 0.25 mcg PO DAILY [facility] Last Admin: 07/08/17 09:47 Dose: 0.25 mcg Dextrose (Dextrose 50% Inj) 0 ml IV STAT PRN; Protocol PRN Reason: Hypoglycemia Protocol Dextrose (Glutose 15) 0 gm PO ONCE PRN; Protocol PRN Reason: Hypoglycemia Protocol Docusate Sodium (Colace) 100 mg PO DAILY [facility] Last Admin: 07/08/17 09:46 Dose: 100 mg Gabapentin (Neurontin) 100 mg PO HS [facility] Last Admin: 07/07/17 22:05 Dose: 100 mg Glucagon (Glucagen Diagnostic Kit) 0 mg IM STAT PRN; Protocol PRN Reason: Hypoglycemia Protocol Heparin Sodium (Porcine) (Heparin) 5,000 units SC Q12 [facility] Last Admin: 07/08/17 09:47 Dose: 5,000 units Home Med (Patient's Own Medication) 1 tab PO BID [facility] Last Admin: 07/08/17 09:45 Dose: 1 tab Hydralazine HCl (Apresoline) 25 mg PO QID [facility] Last Admin: 07/08/17 09:47 Dose: 25 mg Piperacillin Sod/Tazobactam Sod (Zosyn 2.25 Gm Iv Premix) 2.25 gm in 50 mls @ 100 mls/hr IVPB Q6H [facility] Last Admin: 07/08/17 12:15 Dose: 100 mls/hr Sodium Bicarbonate 50 meq/ (Sodium Chloride) 1,050 mls @ 10 mls/hr IV .Q24H [facility] Last Admin: 07/07/17 18:43 Dose: Not Given Insulin Glargine (Lantus) 40 unit SC HS [facility] Last Admin: 07/07/17 22:17 Dose: 40 unit Insulin Human Regular (Novolin R) 0 unit SC ACHS [facility] PRN Reason: Protocol Last Admin: 07/08/17 12:45 Dose: 2 unit Multivitamins (Hexavitamin) 1 tab PO DAILY [facility] Last Admin: 07/08/17 09:46 Dose: 1 tab Nnslz-6-Abnp Ethyl Esters (Lovaza) 1 gm PO BID [facility] Last Admin: 07/08/17 09:46 Dose: 1 gm Ondansetron HCl (Zofran Inj) 4 mg IVP Q4H PRN PRN Reason: Nausea/Vomiting Last Admin: 07/07/17 22:44 Dose: 4 mg Pantoprazole Sodium (Protonix Ec Tab) 40 mg PO DAILY [facility] Last Admin: 07/08/17 09:47 Dose: 40 mg Polyethylene Glycol (Miralax) 17 gm PO Q12H [facility] Last Admin: 07/08/17 12:19 Dose: 17 gm Prednisone (Prednisone Tab) 5 mg PO DAILY [facility] Last Admin: 07/08/17 09:46 Dose: 5 mg Simethicone (Mylicon Chew Tab) 80 mg PO Q6H PRN PRN Reason: GI distress Last Admin: 07/07/17 22:49 Dose: 80 mg Tacrolimus (Prograf Cap) 4 mg PO BID [facility] Last Admin: 07/08/17 09:56 Dose: 4 mg - Labs Labs: 07/08/17 06:47 07/08/17 06:47 PT 12.3 SECONDS (9.7-12.2) H 07/03/17 07:37 INR 1.1 07/03/17 07:37 APTT 29 SECONDS (21-34) 07/02/17 09:28 - Constitutional Appears: In Acute Distress, Chronically Ill - Head Exam Head Exam: ATRAUMATIC, NORMAL INSPECTION - Eye Exam Eye Exam: EOMI, Normal appearance - Neck Exam Neck Exam: Normal Inspection. absent: Tenderness - Respiratory Exam Respiratory Exam: Clear to Ausculation Bilateral, NORMAL BREATHING PATTERN - Cardiovascular Exam Cardiovascular Exam: REGULAR RHYTHM, +S1 - GI/Abdominal Exam GI & Abdominal Exam: Tenderness, Hypoactive Bowel Sounds - Extremities Exam Extremities Exam: Normal Inspection, Tenderness - Neurological Exam Neurological Exam: Alert, CN II-XII Intact - Skin Skin Exam: Dry, Warm Assessment and Plan (1) Kidney lesion, [place], left Status: Acute (2) Perforated appendicitis Status: Acute (3) Renal transplant recipient Status: Acute (4) Diabetes mellitus type 2 in nonobese Status: Acute (5) HTN (hypertension) Status: Acute (6) PVD (peripheral vascular disease) Status: Acute - Assessment and Plan (Free Text) Plan: increase IV fluids IV ABs monitor renal function NGT placement decision on surgery still pending
--- NOTE | 2017-07-08 13:07 | CP.PCM.PN ---
Subjective - Date & Time of Evaluation Date of Evaluation: 07/08/17 Time of Evaluation: 07:45 - Subjective Subjective: Medicine progress note for Dr. Dubose's service Patient was seen and examined at bedside. Patient was sitting in chair at bedside. Patient reports still being constipated, but does not have as much pain and before. He had one episode of vomiting this morning. Patient denies chest pain, shortness of breath, fevers, and headaches. Objective - Vital Signs/Intake and Output Vital Signs (last 24 hours): Temp Pulse Resp BP Pulse Ox 97.4 F L 88 18 149/86 96 07/08/17 08:30 07/08/17 09:48 07/08/17 08:30 07/08/17 09:48 07/08/17 08:30 Intake and Output: 07/08/17 07/08/17 06:59 18:59 Intake Total 1420 Output Total 1400 Balance 20 - Medications Medications: Current Medications Acetaminophen (Tylenol 325mg Tab) 975 mg PO Q8 PRN PRN Reason: Pain, moderate (4-7) Last Admin: 07/07/17 22:06 Dose: 975 mg Calcitriol (Rocaltrol) 0.25 mcg PO DAILY [facility] Last Admin: 07/08/17 09:47 Dose: 0.25 mcg Dextrose (Dextrose 50% Inj) 0 ml IV STAT PRN; Protocol PRN Reason: Hypoglycemia Protocol Dextrose (Glutose 15) 0 gm PO ONCE PRN; Protocol PRN Reason: Hypoglycemia Protocol Docusate Sodium (Colace) 100 mg PO DAILY [facility] Last Admin: 07/08/17 09:46 Dose: 100 mg Gabapentin (Neurontin) 100 mg PO HS [facility] Last Admin: 07/07/17 22:05 Dose: 100 mg Glucagon (Glucagen Diagnostic Kit) 0 mg IM STAT PRN; Protocol PRN Reason: Hypoglycemia Protocol Heparin Sodium (Porcine) (Heparin) 5,000 units SC Q12 [facility] Last Admin: 07/08/17 09:47 Dose: 5,000 units Home Med (Patient's Own Medication) 1 tab PO BID [facility] Last Admin: 07/08/17 09:45 Dose: 1 tab Hydralazine HCl (Apresoline) 25 mg PO QID [facility] Last Admin: 07/08/17 09:47 Dose: 25 mg Piperacillin Sod/Tazobactam Sod (Zosyn 2.25 Gm Iv Premix) 2.25 gm in 50 mls @ 100 mls/hr IVPB Q6H [facility] Last Admin: 07/08/17 12:15 Dose: 100 mls/hr Sodium Bicarbonate 25 meq/ (Sodium Chloride) 1,025 mls @ 75 mls/hr IV .[id number] [facility] Insulin Glargine (Lantus) 40 unit SC HS [facility] Last Admin: 07/07/17 22:17 Dose: 40 unit Insulin Human Regular (Novolin R) 0 unit SC ACHS [facility] PRN Reason: Protocol Last Admin: 07/08/17 12:45 Dose: 2 unit Multivitamins (Hexavitamin) 1 tab PO DAILY [facility] Last Admin: 07/08/17 09:46 Dose: 1 tab Linqw-9-[id number] Ethyl Esters (Lovaza) 1 gm PO BID [facility] Last Admin: 07/08/17 09:46 Dose: 1 gm Ondansetron HCl (Zofran Inj) 4 mg IVP Q4H PRN PRN Reason: Nausea/Vomiting Last Admin: 07/07/17 22:44 Dose: 4 mg Pantoprazole Sodium (Protonix Ec Tab) 40 mg PO DAILY [facility] Last Admin: 07/08/17 09:47 Dose: 40 mg Polyethylene Glycol (Miralax) 17 gm PO Q12H [facility] Last Admin: 07/08/17 12:19 Dose: 17 gm Prednisone (Prednisone Tab) 5 mg PO DAILY [facility] Last Admin: 07/08/17 09:46 Dose: 5 mg Simethicone (Mylicon Chew Tab) 80 mg PO Q6H PRN PRN Reason: GI distress Last Admin: 07/07/17 22:49 Dose: 80 mg Tacrolimus (Prograf Cap) 4 mg PO BID [facility] Last Admin: 07/08/17 09:56 Dose: 4 mg - Labs Labs: 07/08/17 06:47 07/08/17 06:47 PT 12.3 SECONDS (9.7-12.2) H 07/03/17 07:37 INR 1.1 07/03/17 07:37 APTT 29 SECONDS (21-34) 07/02/17 09:28 - Additional Findings Additional findings: - Head Exam Head Exam: ATRAUMATIC, NORMOCEPHALIC - Eye Exam Eye Exam: EOMI, Normal appearance - ENT Exam ENT Exam: Mucous Membranes Moist - Respiratory Exam Respiratory Exam: Clear to Ausculation Bilateral, NORMAL BREATHING PATTERN. absent: Rales, Rhonchi, Wheezes, Respiratory Distress - Cardiovascular Exam Cardiovascular Exam: REGULAR RHYTHM, +S1, +S2 - GI/Abdominal Exam GI & Abdominal Exam: Soft, Tenderness (tenderness in RLQ, epigastric), Distended , Firm, Normal Bowel Sounds. - Extremities Exam Additional comments: chronic left UE and LE lymphedema. - Neurological Exam Neurological Exam: Alert, Awake, Oriented x3 - Skin Skin Exam: Dry, Intact, Normal Color, Warm Assessment and Plan - Assessment and Plan (Free Text) Plan: 1. Ruptured Appendicitis with Abscess * General Surgery consulted - Dr. Quevedo - help appreciated * Gen Surg consulted for second opinion, Dr. Domingo * rec appreciated * IR was consulted for possible drainage, help appreciated * Per IR on 07/02/17, there is phlegmatous ( inflammatory) changes in the RLQ. There is no drainable fluid. Once a fluid collection develops, an percutaneous drainage catheter will be placed. * suggested repeat CT on 07/04/17 * Imaging: * CT Scan Abdomen and Pelvis (07/02): 1. Findings are consistent with acute ruptured appendicitis with a 4.2 cm collection/phlegmon at the tip. 2. 2.0 cm indeterminate lesion in the upper pole of the left kidney anteriorly could represent a complicated or hemorrhagic cyst. Neoplasm cannot be excluded. Please correlate with renal ultrasound. * CT Abd/Pelv (07/04): Findings suggest a phlegmon and/or early abscess of right lower quadrant of the abdomen which is poorly defined. The appendix is not seen with certainty. Rule out acute ruptured appendicitis. There is also small amount of free fluid within the right aspect of the pelvis. Findings also suggest mild constipation. Bilateral renal transplants. No change atrophic [place] kidneys or left renal cyst. There are areas of atelectasis both lung bases. Meds: * NS @100cc/hr * Renally dosed Zosyn 2.25 gm Q6H * Morphine, Zofran PRN 2. Constipation/gas * Enema, mineral oil enema * One dose of dulcolax [place] and lactulose 20gm given on 07/05 * Colace 100mg PO daily * Simethicone 80mg PO Q6prn for GI distress/gas * Possible NG tube placement * Gen Surg consulted for second opinion, Dr. Domingo * recs appreciated 3. Renal Cyst * CT Scan Abdomen and Pelvis: 2.0 cm indeterminate lesion in the upper pole of the left kidney anteriorly could represent a complicated or hemorrhagic cyst. Neoplasm cannot be excluded. Please correlate with renal ultrasound. * Renal US shows 4.1 cm solid mass in the upper pole of the left [place] kidney * Outpatient follow up for mass once acute issues have resolved was recommended by nephrology 4. History of Hypertension * Resumed home medication Hydralazine 25 mg PO QID 5. History of Diabetes * Accuchecks * ISS - medium * home medication Lantus 35 units SC HS * home medication Gabapentin 100 mg PO HS * HGA1C 14.4 6. Hx HLD * Lipid panel: TG 176, Cholesterol 102, LDL 33, HDL 14 7. History of Renal Transplant x 2 * Resume home Prograf 4 mg PO BID * Resume home Cellcept (brought in by patient) 180 mg PO BID * Resume home Prednisone 5 mg PO daily * Nephrology consult, Dr. Lorenzo, help appreciated 8. Prophylactic Measures * GI PPX: Protonix 40mg IVP daily * DVT PPX: Heparin 5000 units SC Q12H, SCDs. * Renal Diet Discussed with Dr. Dubose
[2017-07-08] MEDS: SODIUM BICARBONATE IV SCH (14:00)
[2017-07-08] MEDS: SODIUM CHLORIDE 0.45% IV SCH (14:00)
[2017-07-08] MEDS: (Lantus) Insulin Glargine, Recombinant SC SCH (23:53)
[2017-07-09] MEDS: POLYETHYLENE GLYCOL 3350 17 GM/Dose PACKET PO SCH ×2 (00:06→12:15)
[2017-07-09 06:34] LABS: BASO % 0.4 % (0.0-2.0); EOS # 0.1 K/uL (0.0-0.7); EOS % 1.5 % (0.0-4.0); HEMOGLOBIN 13.1 g/dL (12.0-18.0); LYMPH # 0.8 K/uL (1.0-4.3); MEAN CELL VOLUME 82.8 fL (80.0-94.0); MEAN CORPUSCULAR HEMOGLOBIN 28.6 pg (27.0-31.0); MEAN CORPUSCULAR HGB CONC 34.5 g/dL (33.0-37.0); MEAN PLATELET VOLUME 8.7 fL (7.2-11.7); MONO # 0.8 K/uL (0.0-0.8); NEUT # 5.3 K/uL (1.8-7.0); NEUT % 76.1 % (50.0-75.0); NRBC % 0.1 % (0.0-2.0); RBC 4.58 Mil/uL (4.40-5.90); RED CELL DISTRIBUTION WIDTH 15.2 % (11.5-14.5); WHITE BLOOD COUNT 6.9 K/uL (4.8-10.8)
[2017-07-09 06:54] LABS: ALB/GLOB RATIO 1.1 (1.0-2.1); ALBUMIN 3.6 g/dL (3.5-5.0); CALCIUM 9.1 mg/dl (8.6-10.4)
[2017-07-09] MEDS: (Novolin R) Insulin Human Regular 100 units/ml vial SC SCH ×4 (08:30→21:48)
[2017-07-09] MEDS: Omega-3-Acid Ethyl Esters 1 GM Cap PO SCH ×2 (09:27→18:55)
[2017-07-09] MEDS: Multiple Vitamins Tab PO SCH (09:27)
[2017-07-09] MEDS: Pantoprazole 40 mg EC Tab PO SCH (09:27)
[2017-07-09] MEDS: MYCOPHENOLIC ACID 180 MG PO SCH ×2 (09:28→18:55)
--- NOTE | 2017-07-09 10:42 | CP.PCM.PN ---
Subjective - Date & Time of Evaluation Date of Evaluation: 07/09/17 Time of Evaluation: 10:40 - Subjective Subjective: General Surgery Progress Note For Dr. Quevedo This 51M was seen and examined this AM at bedside. No acute events reported overnight. Pt had 4 BMs yesterday, passing gas tolerating diet one episode of emesis yesterday. Reports his abdominal pain is better. Objective - Vital Signs/Intake and Output Vital Signs (last 24 hours): Temp Pulse Resp BP Pulse Ox 98.8 F 81 18 119/76 96 07/09/17 07:30 07/09/17 09:22 07/09/17 07:30 07/09/17 09:22 07/09/17 07:30 Intake and Output: 07/09/17 07/09/17 06:59 18:59 Intake Total 350 Output Total 3000 200 Balance -2650 -200 - Medications Medications: Current Medications Acetaminophen (Tylenol 325mg Tab) 975 mg PO Q8 PRN PRN Reason: Pain, moderate (4-7) Last Admin: 07/07/17 22:06 Dose: 975 mg Calcitriol (Rocaltrol) 0.25 mcg PO DAILY [facility] Last Admin: 07/09/17 09:27 Dose: 0.25 mcg Dextrose (Dextrose 50% Inj) 0 ml IV STAT PRN; Protocol PRN Reason: Hypoglycemia Protocol Dextrose (Glutose 15) 0 gm PO ONCE PRN; Protocol PRN Reason: Hypoglycemia Protocol Docusate Sodium (Colace) 100 mg PO DAILY [facility] Last Admin: 07/09/17 09:28 Dose: 100 mg Gabapentin (Neurontin) 100 mg PO HS [facility] Last Admin: 07/08/17 23:51 Dose: 100 mg Glucagon (Glucagen Diagnostic Kit) 0 mg IM STAT PRN; Protocol PRN Reason: Hypoglycemia Protocol Heparin Sodium (Porcine) (Heparin) 5,000 units SC Q12 [facility] Last Admin: 07/09/17 09:31 Dose: 5,000 units Home Med (Patient's Own Medication) 1 tab PO BID [facility] Last Admin: 07/09/17 09:28 Dose: 1 tab Hydralazine HCl (Apresoline) 25 mg PO QID [facility] Last Admin: 07/09/17 09:23 Dose: Not Given Piperacillin Sod/Tazobactam Sod (Zosyn 2.25 Gm Iv Premix) 2.25 gm in 50 mls @ 100 mls/hr IVPB Q6H [facility] Last Admin: 07/08/17 23:52 Dose: 100 mls/hr Sodium Bicarbonate 25 meq/ (Sodium Chloride) 1,025 mls @ 75 mls/hr IV .[id number] [facility] Last Admin: 07/08/17 14:00 Dose: 75 mls/hr Insulin Glargine (Lantus) 40 unit SC HS [facility] Last Admin: 07/08/17 23:53 Dose: 40 unit Insulin Human Regular (Novolin R) 0 unit SC ACHS [facility] PRN Reason: Protocol Last Admin: 07/08/17 17:37 Dose: 2 unit Multivitamins (Hexavitamin) 1 tab PO DAILY [facility] Last Admin: 07/09/17 09:27 Dose: 1 tab Ppjuo-[id number] Ethyl Esters (Lovaza) 1 gm PO BID [facility] Last Admin: 07/09/17 09:27 Dose: 1 gm Ondansetron HCl (Zofran Inj) 4 mg IVP Q4H PRN PRN Reason: Nausea/Vomiting Last Admin: 07/07/17 22:44 Dose: 4 mg Pantoprazole Sodium (Protonix Ec Tab) 40 mg PO DAILY [facility] Last Admin: 07/09/17 09:27 Dose: 40 mg Polyethylene Glycol (Miralax) 17 gm PO Q12H [facility] Last Admin: 07/09/17 00:06 Dose: Not Given Prednisone (Prednisone Tab) 5 mg PO DAILY [facility] Last Admin: 07/09/17 09:28 Dose: 5 mg Simethicone (Mylicon Chew Tab) 80 mg PO Q6H PRN PRN Reason: GI distress Last Admin: 07/07/17 22:49 Dose: 80 mg Tacrolimus (Prograf Cap) 4 mg PO BID [facility] Last Admin: 07/08/17 17:38 Dose: 4 mg - Labs Labs: 07/09/17 06:25 07/09/17 06:25 PT 12.3 SECONDS (9.7-12.2) H 07/03/17 07:37 INR 1.1 07/03/17 07:37 APTT 29 SECONDS (21-34) 07/02/17 09:28 - Constitutional Appears: Non-toxic, No Acute Distress - Head Exam Head Exam: ATRAUMATIC, NORMOCEPHALIC - Eye Exam Eye Exam: EOMI, Normal appearance - ENT Exam ENT Exam: Mucous Membranes Moist - Respiratory Exam Respiratory Exam: NORMAL BREATHING PATTERN - Cardiovascular Exam Cardiovascular Exam: +S1, +S2 - GI/Abdominal Exam GI & Abdominal Exam: Distended, Soft. absent: Firm, Guarding, Rigid, Tenderness - Neurological Exam Neurological Exam: Alert, Awake - Psychiatric Exam Psychiatric exam: Normal Affect, Normal Mood - Skin Skin Exam: Dry, Intact Assessment and Plan - Assessment and Plan (Free Text) Assessment: 51 Male with ruptured appendicitis and ileus Continue regular diet continue bowel regiment D/W Dr. Sae Mueller PGY2
--- NOTE | 2017-07-09 11:50 | CP.PCM.PN ---
Subjective - Date & Time of Evaluation Date of Evaluation: 07/09/17 Time of Evaluation: 11:48 - Subjective Subjective: seen and examined notes reviewed unable to get iv access pt denies any nausea vomiting. improved abd pain. had one bm yesterday Objective - Vital Signs/Intake and Output Vital Signs (last 24 hours): Temp Pulse Resp BP Pulse Ox 98.8 F 81 18 119/76 96 07/09/17 07:30 07/09/17 09:22 07/09/17 07:30 07/09/17 09:22 07/09/17 07:30 Intake and Output: 07/09/17 07/09/17 06:59 18:59 Intake Total 350 Output Total 3000 200 Balance -2650 -200 - Medications Medications: Current Medications Acetaminophen (Tylenol 325mg Tab) 975 mg PO Q8 PRN PRN Reason: Pain, moderate (4-7) Last Admin: 07/07/17 22:06 Dose: 975 mg Calcitriol (Rocaltrol) 0.25 mcg PO DAILY [facility] Last Admin: 07/09/17 09:27 Dose: 0.25 mcg Dextrose (Dextrose 50% Inj) 0 ml IV STAT PRN; Protocol PRN Reason: Hypoglycemia Protocol Dextrose (Glutose 15) 0 gm PO ONCE PRN; Protocol PRN Reason: Hypoglycemia Protocol Docusate Sodium (Colace) 100 mg PO DAILY [facility] Last Admin: 07/09/17 09:28 Dose: 100 mg Gabapentin (Neurontin) 100 mg PO HS [facility] Last Admin: 07/08/17 23:51 Dose: 100 mg Glucagon (Glucagen Diagnostic Kit) 0 mg IM STAT PRN; Protocol PRN Reason: Hypoglycemia Protocol Heparin Sodium (Porcine) (Heparin) 5,000 units SC Q12 [facility] Last Admin: 07/09/17 09:31 Dose: 5,000 units Home Med (Patient's Own Medication) 1 tab PO BID [facility] Last Admin: 07/09/17 09:28 Dose: 1 tab Hydralazine HCl (Apresoline) 25 mg PO QID [facility] Last Admin: 07/09/17 09:23 Dose: Not Given Piperacillin Sod/Tazobactam Sod (Zosyn 2.25 Gm Iv Premix) 2.25 gm in 50 mls @ 100 mls/hr IVPB Q6H [facility] Last Admin: 07/08/17 23:52 Dose: 100 mls/hr Sodium Bicarbonate 25 meq/ (Sodium Chloride) 1,025 mls @ 75 mls/hr IV .[id number] [facility] Last Admin: 07/08/17 14:00 Dose: 75 mls/hr Insulin Glargine (Lantus) 40 unit SC HS [facility] Last Admin: 07/08/17 23:53 Dose: 40 unit Insulin Human Regular (Novolin R) 0 unit SC ACHS [facility] PRN Reason: Protocol Last Admin: 07/09/17 08:30 Dose: Not Given Multivitamins (Hexavitamin) 1 tab PO DAILY [facility] Last Admin: 07/09/17 09:27 Dose: 1 tab Wnmmp-3-Bkqo Ethyl Esters (Lovaza) 1 gm PO BID [facility] Last Admin: 07/09/17 09:27 Dose: 1 gm Ondansetron HCl (Zofran Inj) 4 mg IVP Q4H PRN PRN Reason: Nausea/Vomiting Last Admin: 07/07/17 22:44 Dose: 4 mg Pantoprazole Sodium (Protonix Ec Tab) 40 mg PO DAILY [facility] Last Admin: 07/09/17 09:27 Dose: 40 mg Polyethylene Glycol (Miralax) 17 gm PO Q12H [facility] Last Admin: 07/09/17 00:06 Dose: Not Given Prednisone (Prednisone Tab) 5 mg PO DAILY [facility] Last Admin: 07/09/17 09:28 Dose: 5 mg Simethicone (Mylicon Chew Tab) 80 mg PO Q6H PRN PRN Reason: GI distress Last Admin: 07/07/17 22:49 Dose: 80 mg Tacrolimus (Prograf Cap) 4 mg PO BID [facility] Last Admin: 07/08/17 17:38 Dose: 4 mg - Labs Labs: 07/09/17 06:25 07/09/17 06:25 PT 12.3 SECONDS (9.7-12.2) H 07/03/17 07:37 INR 1.1 07/03/17 07:37 APTT 29 SECONDS (21-34) 07/02/17 09:28 - Constitutional Appears: Non-toxic, No Acute Distress, Chronically Ill - Head Exam Head Exam: NORMAL INSPECTION - Eye Exam Eye Exam: Normal appearance, PERRL Pupil Exam: PERRL - ENT Exam ENT Exam: Mucous Membranes Moist, Normal Exam - Neck Exam Neck Exam: Full ROM, Normal Inspection - Respiratory Exam Respiratory Exam: Clear to Ausculation Bilateral, NORMAL BREATHING PATTERN - Cardiovascular Exam Cardiovascular Exam: REGULAR RHYTHM, RRR - GI/Abdominal Exam GI & Abdominal Exam: Distended, Soft, Hypoactive Bowel Sounds - Extremities Exam Extremities Exam: Full ROM (lue chronic edema, wrapped. rue avf forearm. upper arm ), Normal Inspection - Neurological Exam Neurological Exam: Alert, Awake, Oriented x3 - Psychiatric Exam Psychiatric exam: Normal Affect, Normal Mood - Skin Skin Exam: Dry, Intact, Warm Assessment and Plan (1) Renal transplant recipient Status: Acute (2) Abdominal pain Status: Acute (3) Perforated appendicitis Status: Acute (4) Diabetes mellitus type 2 in nonobese Status: Acute (5) HTN (hypertension) Status: Acute - Assessment and Plan (Free Text) Assessment: needs iv fluids, okay to use lower rt arm for access repeat FK levels, last level few days ago was high
[2017-07-09] MEDS: SODIUM CHLORIDE 0.45% IV SCH ×2 (12:32→16:51)
[2017-07-09] MEDS: SODIUM BICARBONATE IV SCH ×2 (12:32→16:51)
[2017-07-09] MEDS: Piperacill/Tazo 2.25gm in Dex 2.25 GM/50 ML BAG IVPB SCH ×3 (12:33→23:14)
--- NOTE | 2017-07-09 15:28 | CP.PCM.PN ---
Subjective - Date & Time of Evaluation Date of Evaluation: 07/09/17 Time of Evaluation: 07:30 - Subjective Subjective: Medicine progress note for Dr. Dubose's service Patient was seen and examined at bedside. Patient was sleeping comfortably in bed. Patient reports having a bowel movement overnight. He denies having abdominal pain. Patient denies chest pain, shortness of breath, fevers, and headaches. Objective - Vital Signs/Intake and Output Vital Signs (last 24 hours): Temp Pulse Resp BP Pulse Ox 98.8 F 78 18 135/82 96 07/09/17 07:30 07/09/17 14:28 07/09/17 07:30 07/09/17 14:28 07/09/17 07:30 Intake and Output: 07/09/17 07/09/17 06:59 18:59 Intake Total 750 Output Total 3000 200 Balance -2250 -200 - Medications Medications: Current Medications Acetaminophen (Tylenol 325mg Tab) 975 mg PO Q8 PRN PRN Reason: Pain, moderate (4-7) Last Admin: 07/07/17 22:06 Dose: 975 mg Calcitriol (Rocaltrol) 0.25 mcg PO DAILY [facility] Last Admin: 07/09/17 09:27 Dose: 0.25 mcg Dextrose (Dextrose 50% Inj) 0 ml IV STAT PRN; Protocol PRN Reason: Hypoglycemia Protocol Dextrose (Glutose 15) 0 gm PO ONCE PRN; Protocol PRN Reason: Hypoglycemia Protocol Docusate Sodium (Colace) 100 mg PO DAILY [facility] Last Admin: 07/09/17 09:28 Dose: 100 mg Gabapentin (Neurontin) 100 mg PO HS [facility] Last Admin: 07/08/17 23:51 Dose: 100 mg Glucagon (Glucagen Diagnostic Kit) 0 mg IM STAT PRN; Protocol PRN Reason: Hypoglycemia Protocol Heparin Sodium (Porcine) (Heparin) 5,000 units SC Q12 [facility] Last Admin: 07/09/17 09:31 Dose: 5,000 units Home Med (Patient's Own Medication) 1 tab PO BID [facility] Last Admin: 07/09/17 09:28 Dose: 1 tab Hydralazine HCl (Apresoline) 25 mg PO QID [facility] Last Admin: 07/09/17 14:29 Dose: 25 mg Piperacillin Sod/Tazobactam Sod (Zosyn 2.25 Gm Iv Premix) 2.25 gm in 50 mls @ 100 mls/hr IVPB Q6H [facility] Last Admin: 07/09/17 12:33 Dose: 100 mls/hr Sodium Bicarbonate 25 meq/ (Sodium Chloride) 1,025 mls @ 75 mls/hr IV .[id number] [facility] Last Admin: 07/09/17 12:32 Dose: 75 mls/hr Insulin Glargine (Lantus) 40 unit SC HS [facility] Last Admin: 07/08/17 23:53 Dose: 40 unit Insulin Human Regular (Novolin R) 0 unit SC ACHS [facility] PRN Reason: Protocol Last Admin: 07/09/17 12:15 Dose: 3 unit Multivitamins (Hexavitamin) 1 tab PO DAILY [facility] Last Admin: 07/09/17 09:27 Dose: 1 tab Ujeaj-1-Woeq Ethyl Esters (Lovaza) 1 gm PO BID [facility] Last Admin: 07/09/17 09:27 Dose: 1 gm Ondansetron HCl (Zofran Inj) 4 mg IVP Q4H PRN PRN Reason: Nausea/Vomiting Last Admin: 07/07/17 22:44 Dose: 4 mg Pantoprazole Sodium (Protonix Ec Tab) 40 mg PO DAILY [facility] Last Admin: 07/09/17 09:27 Dose: 40 mg Polyethylene Glycol (Miralax) 17 gm PO Q12H [facility] Last Admin: 07/09/17 12:15 Dose: 17 gm Prednisone (Prednisone Tab) 5 mg PO DAILY [facility] Last Admin: 07/09/17 09:28 Dose: 5 mg Simethicone (Mylicon Chew Tab) 80 mg PO Q6H PRN PRN Reason: GI distress Last Admin: 07/07/17 22:49 Dose: 80 mg Tacrolimus (Prograf Cap) 4 mg PO BID [facility] Last Admin: 07/09/17 12:15 Dose: 4 mg - Labs Labs: 07/09/17 06:25 07/09/17 06:25 PT 12.3 SECONDS (9.7-12.2) H 07/03/17 07:37 INR 1.1 07/03/17 07:37 APTT 29 SECONDS (21-34) 07/02/17 09:28 - Additional Findings Additional findings: - Head Exam Head Exam: ATRAUMATIC, NORMOCEPHALIC - Eye Exam Eye Exam: EOMI, Normal appearance - ENT Exam ENT Exam: Mucous Membranes Moist - Respiratory Exam Respiratory Exam: Clear to Ausculation Bilateral, NORMAL BREATHING PATTERN. absent: Rales, Rhonchi, Wheezes, Respiratory Distress - Cardiovascular Exam Cardiovascular Exam: REGULAR RHYTHM, +S1, +S2 - GI/Abdominal Exam GI & Abdominal Exam: Normal Bowel Sounds, Soft. absent: Tenderness, Distended, Firm. - Extremities Exam Additional comments: chronic left UE and LE lymphedema. - Neurological Exam Neurological Exam: Alert, Awake, Oriented x3 - Skin Skin Exam: Dry, Intact, Normal Color, Warm Assessment and Plan - Assessment and Plan (Free Text) Plan: 1. Ruptured Appendicitis with Abscess * General Surgery consulted - Dr. Quevedo - help appreciated * Gen Surg consulted for second opinion, Dr. Domingo * rec appreciated * IR was consulted for possible drainage, help appreciated * Per IR on 07/02/17, there is phlegmatous ( inflammatory) changes in the RLQ. There is no drainable fluid. Once a fluid collection develops, an percutaneous drainage catheter will be placed. * suggested repeat CT on 07/04/17 * Imaging: * CT Scan Abdomen and Pelvis (07/02): 1. Findings are consistent with acute ruptured appendicitis with a 4.2 cm collection/phlegmon at the tip. 2. 2.0 cm indeterminate lesion in the upper pole of the left kidney anteriorly could represent a complicated or hemorrhagic cyst. Neoplasm cannot be excluded. Please correlate with renal ultrasound. * CT Abd/Pelv (07/04): Findings suggest a phlegmon and/or early abscess of right lower quadrant of the abdomen which is poorly defined. The appendix is not seen with certainty. Rule out acute ruptured appendicitis. There is also small amount of free fluid within the right aspect of the pelvis. Findings also suggest mild constipation. Bilateral renal transplants. No change atrophic [place] kidneys or left renal cyst. There are areas of atelectasis both lung bases. Meds: * NS @100cc/hr * Renally dosed Zosyn 2.25 gm Q6H * Morphine, Zofran PRN 2. Constipation/gas * Patient having BM as of 07/09/17 * Enema, mineral oil enema * One dose of dulcolax [place] and lactulose 20gm given on 07/05 * Colace 100mg PO daily * Simethicone 80mg PO Q6prn for GI distress/gas * Possible NG tube placement * Gen Surg consulted for second opinion, Dr. Domingo * recs appreciated 3. Renal Cyst * CT Scan Abdomen and Pelvis: 2.0 cm indeterminate lesion in the upper pole of the left kidney anteriorly could represent a complicated or hemorrhagic cyst. Neoplasm cannot be excluded. Please correlate with renal ultrasound. * Renal US shows 4.1 cm solid mass in the upper pole of the left [place] kidney * Outpatient follow up for mass once acute issues have resolved was recommended by nephrology 4. History of Hypertension * Resumed home medication Hydralazine 25 mg PO QID 5. History of Diabetes * Accuchecks * ISS - medium * home medication Lantus 35 units SC HS * home medication Gabapentin 100 mg PO HS * HGA1C 14.4 6. Hx HLD * Lipid panel: TG 176, Cholesterol 102, LDL 33, HDL 14 7. History of Renal Transplant x 2 * Resume home Prograf 4 mg PO BID * Resume home Cellcept (brought in by patient) 180 mg PO BID * Resume home Prednisone 5 mg PO daily * Nephrology consult, Dr. Lorenzo, help appreciated * As per nephrology, continue IV fluids. patient no longer has IV access; ordered midline on 07/09/17 * Continue to monitor kidney function. 8. Prophylactic Measures * GI PPX: Protonix 40mg IVP daily * DVT PPX: Heparin 5000 units SC Q12H, SCDs. * Renal Diet Discussed with Dr. Dubose
[2017-07-09 15:58] VITALS: RESP 20
[2017-07-09] MEDS: (Lantus) Insulin Glargine, Recombinant SC SCH (21:51)
[2017-07-10] MEDS: POLYETHYLENE GLYCOL 3350 17 GM/Dose PACKET PO SCH ×2 (01:00→13:13)
[2017-07-10] MEDS: SODIUM CHLORIDE 0.45% IV SCH ×2 (03:31→06:45)
[2017-07-10] MEDS: SODIUM BICARBONATE IV SCH ×2 (03:31→06:45)
[2017-07-10] MEDS: Piperacill/Tazo 2.25gm in Dex 2.25 GM/50 ML BAG IVPB SCH ×4 (05:28→23:33)
[2017-07-10] MEDS: (Novolin R) Insulin Human Regular 100 units/ml vial SC SCH ×4 (07:48→21:56)
[2017-07-10 07:52] LABS: BASO % 0.3 % (0.0-2.0); EOS # 0.1 K/uL (0.0-0.7); EOS % 1.9 % (0.0-4.0); HEMOGLOBIN 12.8 g/dL (12.0-18.0); LYMPH # 0.7 K/uL (1.0-4.3); MEAN CELL VOLUME 83.1 fL (80.0-94.0); MEAN CORPUSCULAR HEMOGLOBIN 28.7 pg (27.0-31.0); MEAN CORPUSCULAR HGB CONC 34.5 g/dL (33.0-37.0); MEAN PLATELET VOLUME 8.7 fL (7.2-11.7); MONO # 0.5 K/uL (0.0-0.8); MONO % 9.9 % (0.0-10.0); NEUT # 3.9 K/uL (1.8-7.0); NEUT % 73.9 % (50.0-75.0); RBC 4.46 Mil/uL (4.40-5.90); RED CELL DISTRIBUTION WIDTH 14.8 % (11.5-14.5); WHITE BLOOD COUNT 5.3 K/uL (4.8-10.8)
[2017-07-10 07:59] LABS: ALB/GLOB RATIO 1.1 (1.0-2.1); ALBUMIN 3.7 g/dL (3.5-5.0)
[2017-07-10] MEDS: MYCOPHENOLIC ACID 180 MG PO SCH ×2 (10:37→18:41)
[2017-07-10] MEDS: Multiple Vitamins Tab PO SCH (10:37)
[2017-07-10] MEDS: Omega-3-Acid Ethyl Esters 1 GM Cap PO SCH ×2 (10:37→18:41)
[2017-07-10] MEDS: Pantoprazole 40 mg EC Tab PO SCH (11:00)
--- NOTE | 2017-07-10 12:04 | CP.PCM.PN ---
Subjective - Date & Time of Evaluation Date of Evaluation: 07/10/17 Time of Evaluation: 09:45 - Subjective Subjective: General Surgery Pt S&E, NAEO. still with BM/flatus. No new complaints. would like to go home soon. Objective - Vital Signs/Intake and Output Vital Signs (last 24 hours): Temp Pulse Resp BP Pulse Ox 97.9 F 71 20 153/92 H 97 07/10/17 08:18 07/10/17 10:36 07/10/17 08:18 07/10/17 10:36 07/10/17 08:18 Intake and Output: 07/10/17 07/10/17 06:59 18:59 Intake Total 1690 Output Total 350 Balance 1340 - Medications Medications: Current Medications Acetaminophen (Tylenol 325mg Tab) 975 mg PO Q8 PRN PRN Reason: Pain, moderate (4-7) Last Admin: 07/07/17 22:06 Dose: 975 mg Calcitriol (Rocaltrol) 0.25 mcg PO DAILY [facility] Last Admin: 07/10/17 10:37 Dose: 0.25 mcg Dextrose (Dextrose 50% Inj) 0 ml IV STAT PRN; Protocol PRN Reason: Hypoglycemia Protocol Dextrose (Glutose 15) 0 gm PO ONCE PRN; Protocol PRN Reason: Hypoglycemia Protocol Docusate Sodium (Colace) 100 mg PO DAILY [facility] Last Admin: 07/10/17 10:37 Dose: 100 mg Gabapentin (Neurontin) 100 mg PO HS [facility] Last Admin: 07/09/17 21:46 Dose: 100 mg Glucagon (Glucagen Diagnostic Kit) 0 mg IM STAT PRN; Protocol PRN Reason: Hypoglycemia Protocol Heparin Sodium (Porcine) (Heparin) 5,000 units SC Q12 [facility] Last Admin: 07/10/17 10:37 Dose: 5,000 units Home Med (Patient's Own Medication) 1 tab PO BID [facility] Last Admin: 07/10/17 10:37 Dose: 1 tab Hydralazine HCl (Apresoline) 25 mg PO QID [facility] Last Admin: 07/10/17 10:37 Dose: 25 mg Piperacillin Sod/Tazobactam Sod (Zosyn 2.25 Gm Iv Premix) 2.25 gm in 50 mls @ 100 mls/hr IVPB Q6H [facility] Last Admin: 07/10/17 10:40 Dose: 100 mls/hr Sodium Bicarbonate 25 meq/ (Sodium Chloride) 1,025 mls @ 75 mls/hr IV .[id number] [facility] Last Admin: 07/10/17 06:45 Dose: Not Given Insulin Glargine (Lantus) 40 unit SC HS [facility] Last Admin: 07/09/17 21:51 Dose: 40 unit Insulin Human Regular (Novolin R) 0 unit SC ACHS [facility] PRN Reason: Protocol Last Admin: 07/10/17 07:48 Dose: 4 unit Multivitamins (Hexavitamin) 1 tab PO DAILY [facility] Last Admin: 07/10/17 10:37 Dose: 1 tab [id number]-[id number] Ethyl Esters (Lovaza) 1 gm PO BID [facility] Last Admin: 07/10/17 10:37 Dose: 1 gm Ondansetron HCl (Zofran Inj) 4 mg IVP Q4H PRN PRN Reason: Nausea/Vomiting Last Admin: 07/07/17 22:44 Dose: 4 mg Pantoprazole Sodium (Protonix Ec Tab) 40 mg PO DAILY [facility] Last Admin: 07/10/17 11:00 Dose: 40 mg Polyethylene Glycol (Miralax) 17 gm PO Q12H [facility] Last Admin: 07/10/17 01:00 Dose: Not Given Prednisone (Prednisone Tab) 5 mg PO DAILY [facility] Last Admin: 07/10/17 10:37 Dose: 5 mg Simethicone (Mylicon Chew Tab) 80 mg PO Q6H PRN PRN Reason: GI distress Last Admin: 07/07/17 22:49 Dose: 80 mg Tacrolimus (Prograf Cap) 4 mg PO BID [facility] Last Admin: 07/10/17 10:41 Dose: 4 mg - Labs Labs: 07/10/17 07:24 07/10/17 07:24 PT 12.3 SECONDS (9.7-12.2) H 07/03/17 07:37 INR 1.1 07/03/17 07:37 APTT 29 SECONDS (21-34) 07/02/17 09:28 - Constitutional Appears: Non-toxic, No Acute Distress - Head Exam Head Exam: ATRAUMATIC, NORMOCEPHALIC - Eye Exam Eye Exam: EOMI. absent: Scleral icterus - Respiratory Exam Respiratory Exam: NORMAL BREATHING PATTERN. absent: Respiratory Distress - GI/Abdominal Exam GI & Abdominal Exam: Soft. absent: Distended, Firm, Guarding, Rigid, Tenderness , Mass, Rebound - Neurological Exam Neurological Exam: Alert, Awake, Oriented x3 - Skin Skin Exam: Dry, Warm Assessment and Plan - Assessment and Plan (Free Text) Assessment: 51M with ruptured appendicitis and ileus Plan: Continue regular diet continue bowel regiment No further surgical intervention at this time. F/U with Dr. Quevedo in 2-3 weeks Ok for DC at the discretion of Dr. Dubose D/W Dr. Sae Camarillo PGY4
--- NOTE | 2017-07-10 15:38 | CP.PCM.PN ---
Subjective - Date & Time of Evaluation Date of Evaluation: 07/10/17 Time of Evaluation: 13:45 - Subjective Subjective: no complaints eager to go home tolerating po moving bowels no urinary complaintsno chest pain no sob no cough no nausea no vomiting no diarrhea no rash no headache no fever Objective - Vital Signs/Intake and Output Vital Signs (last 24 hours): Temp Pulse Resp BP Pulse Ox 97.9 F 74 20 142/86 97 07/10/17 08:18 07/10/17 13:53 07/10/17 08:18 07/10/17 13:53 07/10/17 08:18 Intake and Output: 07/10/17 07/10/17 06:59 18:59 Intake Total 1690 912 Output Total 350 Balance 1340 912 - Medications Medications: Current Medications Acetaminophen (Tylenol 325mg Tab) 975 mg PO Q8 PRN PRN Reason: Pain, moderate (4-7) Last Admin: 07/07/17 22:06 Dose: 975 mg Calcitriol (Rocaltrol) 0.25 mcg PO DAILY [facility] Last Admin: 07/10/17 10:37 Dose: 0.25 mcg Dextrose (Dextrose 50% Inj) 0 ml IV STAT PRN; Protocol PRN Reason: Hypoglycemia Protocol Dextrose (Glutose 15) 0 gm PO ONCE PRN; Protocol PRN Reason: Hypoglycemia Protocol Docusate Sodium (Colace) 100 mg PO DAILY [facility] Last Admin: 07/10/17 10:37 Dose: 100 mg Gabapentin (Neurontin) 100 mg PO HS [facility] Last Admin: 07/09/17 21:46 Dose: 100 mg Glucagon (Glucagen Diagnostic Kit) 0 mg IM STAT PRN; Protocol PRN Reason: Hypoglycemia Protocol Heparin Sodium (Porcine) (Heparin) 5,000 units SC Q12 [facility] Last Admin: 07/10/17 10:37 Dose: 5,000 units Home Med (Patient's Own Medication) 1 tab PO BID [facility] Last Admin: 07/10/17 10:37 Dose: 1 tab Hydralazine HCl (Apresoline) 25 mg PO QID [facility] Last Admin: 07/10/17 13:54 Dose: 25 mg Piperacillin Sod/Tazobactam Sod (Zosyn 2.25 Gm Iv Premix) 2.25 gm in 50 mls @ 100 mls/hr IVPB Q6H [facility] Last Admin: 07/10/17 10:40 Dose: 100 mls/hr Sodium Bicarbonate 25 meq/ (Sodium Chloride) 1,025 mls @ 75 mls/hr IV .[id number] [facility] Last Admin: 07/10/17 06:45 Dose: Not Given Insulin Glargine (Lantus) 40 unit SC HS [facility] Last Admin: 07/09/17 21:51 Dose: 40 unit Insulin Human Regular (Novolin R) 0 unit SC ACHS [facility] PRN Reason: Protocol Last Admin: 07/10/17 13:12 Dose: 6 unit Multivitamins (Hexavitamin) 1 tab PO DAILY [facility] Last Admin: 07/10/17 10:37 Dose: 1 tab Fiwbi-6-Iwfl Ethyl Esters (Lovaza) 1 gm PO BID [facility] Last Admin: 07/10/17 10:37 Dose: 1 gm Ondansetron HCl (Zofran Inj) 4 mg IVP Q4H PRN PRN Reason: Nausea/Vomiting Last Admin: 07/07/17 22:44 Dose: 4 mg Pantoprazole Sodium (Protonix Ec Tab) 40 mg PO DAILY [facility] Last Admin: 07/10/17 11:00 Dose: 40 mg Polyethylene Glycol (Miralax) 17 gm PO Q12H [facility] Last Admin: 07/10/17 13:13 Dose: Not Given Prednisone (Prednisone Tab) 5 mg PO DAILY [facility] Last Admin: 07/10/17 10:37 Dose: 5 mg Simethicone (Mylicon Chew Tab) 80 mg PO Q6H PRN PRN Reason: GI distress Last Admin: 07/07/17 22:49 Dose: 80 mg Tacrolimus (Prograf Cap) 4 mg PO BID [facility] Last Admin: 07/10/17 10:41 Dose: 4 mg - Labs Labs: 07/10/17 07:24 07/10/17 07:24 PT 12.3 SECONDS (9.7-12.2) H 07/03/17 07:37 INR 1.1 07/03/17 07:37 APTT 29 SECONDS (21-34) 07/02/17 09:28 - Constitutional Appears: Non-toxic, No Acute Distress - Eye Exam Eye Exam: EOMI, Normal appearance - ENT Exam ENT Exam: Mucous Membranes Moist - Neck Exam Neck Exam: Full ROM. absent: Lymphadenopathy - Respiratory Exam Respiratory Exam: Clear to Ausculation Bilateral. absent: Accessory Muscle Use - Cardiovascular Exam Cardiovascular Exam: REGULAR RHYTHM. absent: Rubs - GI/Abdominal Exam GI & Abdominal Exam: Distended, Soft. absent: Tenderness Additional comments: left allograft nontender - Extremities Exam Additional comments: chronic lymphedema in left arm - Neurological Exam Neurological Exam: Alert, Oriented x3 Assessment and Plan - Assessment and Plan (Free Text) Assessment: ckd 3 renal transplant perforated appendix constipation defer to ID regarding duration of AB and ability to use po can stop ivf with hco3
--- NOTE | 2017-07-10 19:04 | CP.PCM.PN ---
Subjective - Date & Time of Evaluation Date of Evaluation: 07/10/17 Time of Evaluation: 07:30 - Subjective Subjective: Medicine progress note for Dr. Dubose's service Patient was seen and examined at bedside. Patient was awake and alert. Patient reports having loose stool overnight, but denies having abdominal pain. Patient states he is feeling better and wants to go home. Patient denies chest pain, shortness of breath, fevers, and headaches. Objective - Vital Signs/Intake and Output Vital Signs (last 24 hours): Temp Pulse Resp BP Pulse Ox 97.7 F 71 20 158/88 H 97 07/10/17 15:00 07/10/17 15:00 07/10/17 15:00 07/10/17 15:00 07/10/17 15:00 Intake and Output: 07/10/17 07/11/17 18:59 06:59 Intake Total 912 Balance 912 - Medications Medications: Current Medications Acetaminophen (Tylenol 325mg Tab) 975 mg PO Q8 PRN PRN Reason: Pain, moderate (4-7) Last Admin: 07/07/17 22:06 Dose: 975 mg Calcitriol (Rocaltrol) 0.25 mcg PO DAILY [facility] Last Admin: 07/10/17 10:37 Dose: 0.25 mcg Dextrose (Dextrose 50% Inj) 0 ml IV STAT PRN; Protocol PRN Reason: Hypoglycemia Protocol Dextrose (Glutose 15) 0 gm PO ONCE PRN; Protocol PRN Reason: Hypoglycemia Protocol Docusate Sodium (Colace) 100 mg PO DAILY [facility] Last Admin: 07/10/17 10:37 Dose: 100 mg Gabapentin (Neurontin) 100 mg PO HS [facility] Last Admin: 07/09/17 21:46 Dose: 100 mg Glucagon (Glucagen Diagnostic Kit) 0 mg IM STAT PRN; Protocol PRN Reason: Hypoglycemia Protocol Heparin Sodium (Porcine) (Heparin) 5,000 units SC Q12 [facility] Last Admin: 07/10/17 10:37 Dose: 5,000 units Home Med (Patient's Own Medication) 1 tab PO BID [facility] Last Admin: 07/10/17 18:41 Dose: 1 tab Hydralazine HCl (Apresoline) 25 mg PO QID [facility] Last Admin: 07/10/17 18:41 Dose: 25 mg Piperacillin Sod/Tazobactam Sod (Zosyn 2.25 Gm Iv Premix) 2.25 gm in 50 mls @ 100 mls/hr IVPB Q6H [facility] Last Admin: 07/10/17 18:30 Dose: 100 mls/hr Insulin Glargine (Lantus) 40 unit SC HS [facility] Last Admin: 07/09/17 21:51 Dose: 40 unit Insulin Human Regular (Novolin R) 0 unit SC ACHS [facility] PRN Reason: Protocol Last Admin: 07/10/17 17:55 Dose: 6 unit Multivitamins (Hexavitamin) 1 tab PO DAILY [facility] Last Admin: 07/10/17 10:37 Dose: 1 tab Bqpis-9-Huqo Ethyl Esters (Lovaza) 1 gm PO BID [facility] Last Admin: 07/10/17 18:41 Dose: 1 gm Ondansetron HCl (Zofran Inj) 4 mg IVP Q4H PRN PRN Reason: Nausea/Vomiting Last Admin: 07/07/17 22:44 Dose: 4 mg Pantoprazole Sodium (Protonix Ec Tab) 40 mg PO DAILY [facility] Last Admin: 07/10/17 11:00 Dose: 40 mg Polyethylene Glycol (Miralax) 17 gm PO Q12H [facility] Last Admin: 07/10/17 13:13 Dose: Not Given Prednisone (Prednisone Tab) 5 mg PO DAILY [facility] Last Admin: 07/10/17 10:37 Dose: 5 mg Simethicone (Mylicon Chew Tab) 80 mg PO Q6H PRN PRN Reason: GI distress Last Admin: 07/07/17 22:49 Dose: 80 mg Tacrolimus (Prograf Cap) 4 mg PO BID [facility] Last Admin: 07/10/17 18:52 Dose: 4 mg - Labs Labs: 07/10/17 07:24 07/10/17 07:24 PT 12.3 SECONDS (9.7-12.2) H 07/03/17 07:37 INR 1.1 07/03/17 07:37 APTT 29 SECONDS (21-34) 07/02/17 09:28 - Additional Findings Additional findings: - Head Exam Head Exam: ATRAUMATIC, NORMOCEPHALIC - Eye Exam Eye Exam: EOMI, Normal appearance - ENT Exam ENT Exam: Mucous Membranes Moist - Respiratory Exam Respiratory Exam: Clear to Ausculation Bilateral, NORMAL BREATHING PATTERN. absent: Rales, Rhonchi, Wheezes, Respiratory Distress - Cardiovascular Exam Cardiovascular Exam: REGULAR RHYTHM, +S1, +S2 - GI/Abdominal Exam GI & Abdominal Exam: Normal Bowel Sounds, Soft. absent: Tenderness, Distended, Firm. - Extremities Exam Additional comments: chronic left UE and LE lymphedema. - Neurological Exam Neurological Exam: Alert, Awake, Oriented x3 - Skin Skin Exam: Dry, Intact, Normal Color, Warm Assessment and Plan - Assessment and Plan (Free Text) Plan: 1. Ruptured Appendicitis with Abscess * General Surgery consulted - Dr. Quevedo - help appreciated * Gen Surg consulted for second opinion, Dr. Domingo * rec appreciated * IR was consulted for possible drainage, help appreciated * Per IR on 07/02/17, there is phlegmatous ( inflammatory) changes in the RLQ. There is no drainable fluid. Once a fluid collection develops, an percutaneous drainage catheter will be placed. * Imaging: * CT Scan Abdomen and Pelvis (07/02): 1. Findings are consistent with acute ruptured appendicitis with a 4.2 cm collection/phlegmon at the tip. 2. 2.0 cm indeterminate lesion in the upper pole of the left kidney anteriorly could represent a complicated or hemorrhagic cyst. Neoplasm cannot be excluded. Please correlate with renal ultrasound. * CT Abd/Pelv (07/04): Findings suggest a phlegmon and/or early abscess of right lower quadrant of the abdomen which is poorly defined. The appendix is not seen with certainty. Rule out acute ruptured appendicitis. There is also small amount of free fluid within the right aspect of the pelvis. Findings also suggest mild constipation. Bilateral renal transplants. No change atrophic [place] kidneys or left renal cyst. There are areas of atelectasis both lung bases. Meds: * NS @100cc/hr * Renally dosed Zosyn 2.25 gm Q6H * Morphine, Zofran PRN 2. Constipation/gas * Resolved * Patient having BM as of 07/09/17 * Enema, mineral oil enema * One dose of dulcolax [place] and lactulose 20gm given on 07/05 * Colace 100mg PO daily * Simethicone 80mg PO Q6prn for GI distress/gas * Possible NG tube placement * Gen Surg consulted for second opinion, Dr. Domingo 3. Renal Cyst * CT Scan Abdomen and Pelvis: 2.0 cm indeterminate lesion in the upper pole of the left kidney anteriorly could represent a complicated or hemorrhagic cyst. Neoplasm cannot be excluded. Please correlate with renal ultrasound. * Renal US shows 4.1 cm solid mass in the upper pole of the left [place] kidney * Outpatient follow up for mass once acute issues have resolved was recommended by nephrology 4. History of Hypertension * Resumed home medication Hydralazine 25 mg PO QID 5. History of Diabetes * Accuchecks * ISS - medium * home medication Lantus 35 units SC HS * home medication Gabapentin 100 mg PO HS * HGA1C 14.4 6. Hx HLD * Lipid panel: TG 176, Cholesterol 102, LDL 33, HDL 14 7. History of Renal Transplant x 2 * Resume home Prograf 4 mg PO BID * Resume home Cellcept (brought in by patient) 180 mg PO BID * Resume home Prednisone 5 mg PO daily * Nephrology consult, Dr. Lorenzo, help appreciated * Continue to monitor kidney function. 8. Prophylactic Measures * GI PPX: Protonix 40mg IVP daily * DVT PPX: Heparin 5000 units SC Q12H, SCDs. * Renal Diet Discussed with Dr. Dubose
[2017-07-10] MEDS: (Lantus) Insulin Glargine, Recombinant SC SCH (21:57)
[2017-07-11] MEDS: POLYETHYLENE GLYCOL 3350 17 GM/Dose PACKET PO SCH (00:35)
[2017-07-11] MEDS: Piperacill/Tazo 2.25gm in Dex 2.25 GM/50 ML BAG IVPB SCH ×3 (05:34→11:11)
[2017-07-11 06:34] LABS: ALB/GLOB RATIO 1.1 (1.0-2.1); ALBUMIN 3.4 g/dL (3.5-5.0)
[2017-07-11 07:53] VITALS: TEMP 97.7
[2017-07-11] MEDS: (Novolin R) Insulin Human Regular 100 units/ml vial SC SCH (07:53)
[2017-07-11] MEDS: MYCOPHENOLIC ACID 180 MG PO SCH (09:48)
[2017-07-11] MEDS: Multiple Vitamins Tab PO SCH (09:49)
[2017-07-11] MEDS: Pantoprazole 40 mg EC Tab PO SCH (09:49)
[2017-07-11] MEDS: Omega-3-Acid Ethyl Esters 1 GM Cap PO SCH (09:49)
--- NOTE | 2017-07-11 10:39 | CP.PCM.DIS ---
Provider - Provider Date of Admission: 07/02/17 02:39 Attending physician: Arias Dubose Jr, MD Primary care physician: Dr. Clifton Consults: Nephrology: Dr. Lorenzo General surgery: Dr. Quevedo Time Spent in preparation of Discharge (in minutes): 45 Hospital Course - Lab Results Lab Results: Micro Results 07/02/17 00:01 Blood Blood Culture - Final NO GROWTH AFTER 5 DAYS 07/02/17 00:01 Blood Gram Stain - Final TEST NOT PERFORMED 07/02/17 00:01 Blood Blood Culture - Final NO GROWTH AFTER 5 DAYS 07/02/17 00:01 Blood Gram Stain - Final TEST NOT PERFORMED Most Recent Lab Values WBC 5.3 K/uL (4.8-10.8) 07/10/17 07:24 RBC 4.46 Mil/uL (4.40-5.90) 07/10/17 07:24 Hgb 12.8 g/dL (12.0-18.0) 07/10/17 07:24 Hct 37.0 % (35.0-51.0) 07/10/17 07:24 MCV 83.1 fL (80.0-94.0) 07/10/17 07:24 MCH 28.7 pg (27.0-31.0) 07/10/17 07:24 MCHC 34.5 g/dL (33.0-37.0) 07/10/17 07:24 RDW 14.8 % (11.5-14.5) H 07/10/17 07:24 Plt Count 232 K/uL (130-400) 07/10/17 07:24 MPV 8.7 fL (7.2-11.7) 07/10/17 07:24 Neut % (Auto) 73.9 % (50.0-75.0) 07/10/17 07:24 Lymph % (Auto) 14.0 % (20.0-40.0) L 07/10/17 07:24 [place] % (Auto) 9.9 % (0.0-10.0) 07/10/17 07:24 Eos % (Auto) 1.9 % (0.0-4.0) 07/10/17 07:24 Baso % (Auto) 0.3 % (0.0-2.0) 07/10/17 07:24 Neut # (Auto) 3.9 K/uL (1.8-7.0) 07/10/17 07:24 Lymph # (Auto) 0.7 K/uL (1.0-4.3) L 07/10/17 07:24 [place] # (Auto) 0.5 K/uL (0.0-0.8) 07/10/17 07:24 Eos # (Auto) 0.1 K/uL (0.0-0.7) 07/10/17 07:24 Baso # (Auto) 0.0 K/uL (0.0-0.2) 07/10/17 07:24 Neutrophils % (Manual) 82 % (50-75) H 07/08/17 06:47 Band Neutrophils % 1 % (0-2) 07/08/17 06:47 Lymphocytes % (Manual) 9 % (20-40) L 07/08/17 06:47 Monocytes % (Manual) 6 % (0-10) 07/08/17 06:47 Eosinophils % (Manual) 2 % (0-4) 07/08/17 06:47 Basophils % (Manual) 1 % (0-2) 07/07/17 07:45 Toxic Granulation Present 07/07/17 07:45 Platelet Estimate Normal (NORMAL) 07/08/17 06:47 Large Platelets Present 07/06/17 07:24 Giant Platelets Present 07/05/17 08:20 Polychromasia Slight 07/07/17 07:45 Hypochromasia (manual) Slight 07/06/17 07:24 Anisocytosis (manual) Slight 07/08/17 06:47 PT 12.3 SECONDS (9.7-12.2) H 07/03/17 07:37 INR 1.1 07/03/17 07:37 APTT 29 SECONDS (21-34) 07/02/17 09:28 Sodium 135 mmol/L (132-148) 07/11/17 06:03 Potassium 4.2 mmol/L (3.6-5.2) 07/11/17 06:03 Chloride 99 mmol/L (98-107) 07/11/17 06:03 Carbon Dioxide 30 mmol/L (22-30) 07/11/17 06:03 Anion Gap 11 (10-20) 07/11/17 06:03 BUN 31 mg/dL (9-20) H 07/11/17 06:03 Creatinine 2.1 mg/dL (0.8-1.5) H 07/11/17 06:03 Est GFR ( Amer) 41 07/11/17 06:03 Est GFR (Non-Af Amer) 34 07/11/17 06:03 POC Glucose (mg/dL) 134 mg/dL (65-110) H 07/11/17 06:25 Random Glucose 129 mg/dL (75-110) H 07/11/17 06:03 Hemoglobin A1c 14.4 % (4.2-6.5) H 07/03/17 04:00 Calcium 9.0 mg/dl (8.6-10.4) 07/11/17 06:03 Phosphorus 4.7 mg/dL (2.5-4.5) H 07/06/17 07:24 Magnesium 1.8 mg/dL (1.6-2.3) 07/06/17 07:24 Total Bilirubin 0.4 mg/dL (0.2-1.3) 07/11/17 06:03 AST 45 U/L (17-59) 07/11/17 06:03 ALT 44 U/L (21-72) 07/11/17 06:03 Alkaline Phosphatase 56 U/L (38-126) 07/11/17 06:03 Troponin I 0.0200 ng/mL (0.00-0.120) 07/01/17 20:34 Total Protein 6.3 g/dL (6.3-8.3) 07/11/17 06:03 Albumin 3.4 g/dL (3.5-5.0) L 07/11/17 06:03 Globulin 3.0 gm/dL (2.2-3.9) 07/11/17 06:03 Albumin/Globulin Ratio 1.1 (1.0-2.1) 07/11/17 06:03 Triglycerides 176 mg/dL (0-149) H 07/03/17 07:37 Cholesterol 102 mg/dL (0-199) 07/03/17 07:37 LDL Cholesterol Direct 33 mg/dL (0-129) 07/03/17 07:37 HDL Cholesterol 14 mg/dL (30-70) L 07/03/17 07:37 Lipase 22 U/L (23-300) L 07/01/17 19:34 Urine Color Yellow (YELLOW) 07/02/17 21:48 Urine Clarity Clear (Clear) 07/02/17 21:48 Urine pH 5.0 (5.0-8.0) 07/02/17 21:48 Ur Specific [place] 1.019 (1.003-1.030) 07/02/17 21:48 Urine Protein 1+ mg/dL (NEGATIVE) H 07/02/17 21:48 Urine Glucose (UA) 2+ mg/dL (Normal) H 07/02/17 21:48 Urine Ketones Trace mg/dL (NEGATIVE) 07/02/17 21:48 Urine Blood Negative (NEGATIVE) 07/02/17 21:48 Urine Nitrate Negative (NEGATIVE) 07/02/17 21:48 Urine Bilirubin Negative (NEGATIVE) 07/02/17 21:48 Urine Urobilinogen 2.0 mg/dL (0.2-1.0) 07/02/17 21:48 Ur Leukocyte Esterase Neg [place]/uL (Negative) 07/02/17 21:48 Urine WBC (Auto) 1 /hpf (0-5) 07/02/17 21:48 Urine RBC (Auto) < 1 /hpf (0-3) 07/02/17 21:48 Tacrolimus (LC/MS/MS) 9.2 mcg/L (5.0-20.0) 07/04/17 06:20 - Hospital Course Hospital Course: CC: Abdominal pain HPI: 51M with PMHx of HTN, DM, HLD, ESRD s/p renal transplant x 2, chronic right arm lymphedema presents to the ED with abdominal pain x 3 days. Patient reports he started to have a dull, intermittent RLQ pain that did not radiate, that started 2 days ago. Patient admits to feeling feverish, chills, loss of appetite, nausea, abdominal pain, normal bowel movements. He tried taking Tylenol with codeine (which was prescribed to him by PMD, for previous illness) , with no relief. Patient came to the ED due to the pain becoming constant and now with radiation to his right flank. Denied fever, chills, headache, chest pain, SOB, n/v/d/c, or urinary symptoms. PMHx: HTN, DM, HLD, ESRD s/p renal transplant x 2, chronic right arm lymphedema PSHx: renal transplant x 2, LLE lateral digits amputation Meds: As per AUG, reviewed and confirmed All: NKDA SHx: 1 PPD for 10 years between 17-28 years of age, denied ETOH abuse, or illicit drug use FHx: HTN, DM in both parents - they are PMD: Dr. Ashvin Clifton Nephro: Dr. Lorenzo Hospital course: Patient was admitted on 07/02/17 for ruptured appendicitis. In the ED, labs were drawn, images taken, and medications (morphine, zofran, and IV fluids) were given. CT Scan of the Abdomen and Pelvis (07/02/17) showed findings consistent with acute ruptured appendicitis with a 4.2 cm collection/ phlegmon at the tip; 2.0 cm indeterminate lesion in the upper pole of the left kidney anteriorly could represent a complicated or hemorrhagic cyst. General surgery, Dr. Quevedo, was consulted, as well as IR for possible drainage. IR did not drain at the time because there was not enough fluid to drain, and suggested repeat CT in two days. Patient was placed on IV fluids, zosyn, morphine, and zofran. Patient home medications for history of renal transplant, hypertension, diabetes, and hyperlipidemia were restarted. Nephrology, Dr. Lorenzo, was consulted for elevated bun/creatinine. As per surgery, patient did not require surgical intervention at that time. Patient complained of severe abdominal pain. Repeat CT abdomen and pelvis (07/04/17) showed phlegmon and/or early abscess of right lower quadrant of the abdomen which is poorly defined; small amount of free fluid within the right aspect of the pelvis; mild constipation; bilateral renal transplants; no change atrophic [place] kidneys or left renal cyst; areas of atelectasis both lung bases. Patient was administered colace, dulcolax, and enemas for constipation. Patient had a bowel movement on and abdominal pain resolved. Patient was continued on IV fluids as per nephrology and kidney function continuously monitored and improved. Patient continued to have diarrhea/loose stools, without abdominal pain, on 07/10/17. Patient was seen and examined at bedside in no acute distress. Patient reports he is feeling better, no longer having loose stool, and eager to go home. Patient is stable for discharge to home. Patient must take antibiotics as prescribed (Ciprofloaxcin 500mg PO BID for 7 days). Patient must follow up with their PMD and general surgeon (Dr. Quevedo) within 1-2 weeks of discharge. This is a brief summary of the hospital course. Please see EMR for more details. Discharge Exam - Head Exam Head Exam: ATRAUMATIC, NORMOCEPHALIC - Eye Exam Eye Exam: EOMI, Normal appearance - ENT Exam ENT Exam: Mucous Membranes Moist - Respiratory Exam Respiratory Exam: Clear to PA & Lateral, NORMAL BREATHING PATTERN, UNREMARKABLE. absent: Rales, Rhonchi, Wheezes, Respiratory Distress - Cardiovascular Exam Cardiovascular Exam: REGULAR RHYTHM, +S1, +S2 - GI/Abdominal Exam GI & Abdominal Exam: Normal Bowel Sounds, Soft. absent: Firm, Mass, Tenderness - Extremities Exam Additional comments: chronic left UE and LE lymphedema. - Neurological Exam Neurological exam: Alert, Oriented x3 - Psychiatric Exam Psychiatric exam: Normal Affect, Normal Mood - Skin Skin Exam: Dry, Intact, Normal Color, Warm Discharge Plan - Discharge Medications Prescriptions: Ciprofloxacin HCl [Cipro] 500 mg PO BID #14 tablet - Follow Up Plan Condition: GOOD Disposition: HOME/ ROUTINE Instructions: Ciprofloxacin (By mouth), Appendicitis (DC), Constipation (DC), High Fiber Diet (DC), Abscess (GEN), Abdominal Pain (ED) Additional Instructions: Patient is stable for discharge to home. Patient must continue home medications. Patient take new medication as prescribed: Ciprofloxacin 500mg PO BID for 7 days - take 1 tablet by mouth twice a day for 7 days. Patient must follow up with their PMD and [facility] teacher within one week of discharge. Patient must follow up with general surgeon, Dr. Quevedo, within one-two weeks of discharge. If symptoms reoccur or worsen, patient should return to the ED. Referrals: Sachin Lorenzo MD [Staff Provider] - Rakan Quevedo Jr., MD [Staff Provider] -
--- NOTE | 2017-07-11 11:02 | CP.PCM.PN ---
Subjective - Date & Time of Evaluation Date of Evaluation: 07/11/17 Time of Evaluation: 10:58 - Subjective Subjective: Feels better has been afebrile discharge plans noted creat 2.1, FK levels acceptable Objective - Vital Signs/Intake and Output Vital Signs (last 24 hours): Temp Pulse Resp BP Pulse Ox 97.7 F 71 20 145/86 98 07/11/17 07:52 07/11/17 09:54 07/11/17 07:52 07/11/17 09:54 07/11/17 07:52 Intake and Output: 07/11/17 07/11/17 06:59 18:59 Intake Total 110 Balance 110 - Medications Medications: Current Medications Acetaminophen (Tylenol 325mg Tab) 975 mg PO Q8 PRN PRN Reason: Pain, moderate (4-7) Last Admin: 07/07/17 22:06 Dose: 975 mg Calcitriol (Rocaltrol) 0.25 mcg PO DAILY [facility] Last Admin: 07/11/17 10:43 Dose: 0.25 mcg Dextrose (Dextrose 50% Inj) 0 ml IV STAT PRN; Protocol PRN Reason: Hypoglycemia Protocol Dextrose (Glutose 15) 0 gm PO ONCE PRN; Protocol PRN Reason: Hypoglycemia Protocol Docusate Sodium (Colace) 100 mg PO DAILY [facility] Last Admin: 07/11/17 09:49 Dose: 100 mg Gabapentin (Neurontin) 100 mg PO [facility] Last Admin: 07/10/17 21:55 Dose: 100 mg Glucagon (Glucagen Diagnostic Kit) 0 mg IM STAT PRN; Protocol PRN Reason: Hypoglycemia Protocol Heparin Sodium (Porcine) (Heparin) 5,000 units SC Q12 [facility] Last Admin: 07/11/17 09:48 Dose: 5,000 units Home Med (Patient's Own Medication) 1 tab PO BID [facility] Last Admin: 07/11/17 09:48 Dose: 1 tab Hydralazine HCl (Apresoline) 25 mg PO QID [facility] Last Admin: 07/11/17 09:49 Dose: 25 mg Piperacillin Sod/Tazobactam Sod (Zosyn 2.25 Gm Iv Premix) 2.25 gm in 50 mls @ 100 mls/hr IVPB Q6H [facility] Last Admin: 07/11/17 05:36 Dose: 100 mls/hr Insulin Glargine (Lantus) 40 unit SC [facility] Last Admin: 07/10/17 21:57 Dose: 40 unit Insulin Human Regular (Novolin R) 0 unit SC ACHS [facility] PRN Reason: Protocol Last Admin: 07/11/17 07:53 Dose: Not Given Multivitamins (Hexavitamin) 1 tab PO DAILY [facility] Last Admin: 07/11/17 09:49 Dose: 1 tab [id number] Ethyl Esters (Lovaza) 1 gm PO BID [facility] Last Admin: 07/11/17 09:49 Dose: 1 gm Ondansetron HCl (Zofran Inj) 4 mg IVP Q4H PRN PRN Reason: Nausea/Vomiting Last Admin: 07/07/17 22:44 Dose: 4 mg Pantoprazole Sodium (Protonix Ec Tab) 40 mg PO DAILY [facility] Last Admin: 07/11/17 09:49 Dose: 40 mg Polyethylene Glycol (Miralax) 17 gm PO Q12H [facility] Last Admin: 07/11/17 00:35 Dose: Not Given Prednisone (Prednisone Tab) 5 mg PO DAILY [facility] Last Admin: 07/11/17 09:49 Dose: 5 mg Simethicone (Mylicon Chew Tab) 80 mg PO Q6H PRN PRN Reason: GI distress Last Admin: 07/07/17 22:49 Dose: 80 mg Tacrolimus (Prograf Cap) 4 mg PO BID [facility] Last Admin: 07/11/17 09:49 Dose: 4 mg - Labs Labs: 07/10/17 07:24 07/11/17 06:03 PT 12.3 SECONDS (9.7-12.2) H 07/03/17 07:37 INR 1.1 07/03/17 07:37 APTT 29 SECONDS (21-34) 07/02/17 09:28 - Constitutional Appears: No Acute Distress, Chronically Ill - Head Exam Head Exam: ATRAUMATIC, NORMAL INSPECTION - Eye Exam Eye Exam: EOMI, Normal appearance - Neck Exam Neck Exam: Normal Inspection. absent: Tenderness - Respiratory Exam Respiratory Exam: Clear to Ausculation Bilateral, NORMAL BREATHING PATTERN - Cardiovascular Exam Cardiovascular Exam: REGULAR RHYTHM, +S1 - GI/Abdominal Exam GI & Abdominal Exam: Soft, Normal Bowel Sounds. absent: Tenderness - Extremities Exam Extremities Exam: Normal Inspection, Pedal Edema. absent: Tenderness - Neurological Exam Neurological Exam: Alert, CN II-XII Intact - Skin Skin Exam: Dry, Warm Assessment and Plan (1) Kidney lesion, quechan, left Status: Acute (2) Perforated appendicitis Status: Acute (3) Renal transplant recipient Status: Acute (4) Diabetes mellitus type 2 in nonobese Status: Acute (5) HTN (hypertension) Status: Acute (6) PVD (peripheral vascular disease) Status: Acute - Assessment and Plan (Free Text) Plan: Discharge as per medical/ surgical team will follow up at outpt transplant clinic antibiotics po as per medicine
[2017-07-11 12:58] VITALS: BP 136/83; PULSE 74; O2SAT 99
== END 2017-07-11 12:45 | disposition home or self-care (01) | DRG 371 ==
LOC: C.ER 16:54 → C.9E 07-02 02:39 → C.6T 07-02 11:59
PROVIDERS: ADMIT Internal Medicine; ATTEND Internal Medicine
DX: K35.2 Acute appendicitis with generalized peritonitis (principal); N17.0 Acute kidney failure with tubular necrosis; E11.22 Type 2 diabetes mellitus with diabetic chronic kidney disease; E11.621 Type 2 diabetes mellitus with foot ulcer; K56.7 Ileus, unspecified; L97.429 Non-pressure chronic ulcer of left heel and midfoot with unspecified severity; Z94.0 Kidney transplant status; J98.11 Atelectasis; Z79.4 Long term (current) use of insulin; E78.5 Hyperlipidemia, unspecified; Z87.891 Personal history of nicotine dependence; I89.0 Lymphedema, not elsewhere classified; I12.9 Hypertensive chronic kidney disease with stage 1 through stage 4 chronic kidney disease, or unspecified chronic kidney disease; N18.3 Chronic kidney disease, stage 3 (moderate)